=== PATIENT | male | born 1955 | race Caucasian/White ===

== ENCOUNTER 2018-10-08 09:50 | Outpatient (CLI) | payer MEDICAID, SELFPAY ==
--- NOTE | 2018-10-08 09:45 | DI.RAD_ITS ---
SYMPTOMS/DIAGNOSIS: PAIN BILATERAL LEFT SHOULDER: The bony structures are normally mineralized. 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 RIGHT SHOULDER: The bony structures are normally mineralized. As visualized the joint spaces are intact. There is no soft tissue abnormality.
== END 2018-10-08 10:10 ==
PROVIDERS: PCP Nurse Practitioner; Visit Provider Orthopaedic Surgery
DX: M25.511 Pain in right shoulder (principal); M25.512 Pain in left shoulder; M75.82 Other shoulder lesions, left shoulder
CPT/HCPCS: 73030

== ENCOUNTER 2018-11-04 05:57 | Emergency (ER) | payer MEDICAID, SELFPAY ==
[2018-11-04 05:59] VITALS: BP 166/94; PULSE 62; RESP 20; TEMP 36.6; O2SAT 100
--- NOTE | 2018-11-04 06:21 | W.ED.GENAD ---
Discharge Plan Disposition Patient Disposition: HOME Condition: Stable Discharge Details Chief Complaint: Nk/Back Pain Clinical Impression: Acute left-sided back pain with sciatica Primary Care Provider: Christiana Hernandez ED Provider: Mehran Whittington Home Meds and New Rx's Prescriptions: New tramadol 50 mg tablet 50 mg PO Q6H PRN (Reason: pain) Qty: 7 RF: 0 Continue diphenhydramine HCl [Benadryl] 25 mg capsule 50 mg PO HS PRN PRNRF: 0 atorvastatin [Lipitor] 40 mg tablet 40 mg PO DAILY Qty: 90 RF: 3 lisinopril 10 mg tablet 10 mg PO DAILY Qty: 90 RF: 3 ibuprofen 200 MG capsule 400 mg PO HS PRN RF: 0 aspirin 81 MG tablet,chewable 81 mg PO DAILY RF: 0 Discharge Instructions Instructions: Back Pain (ED) Additional Instructions: Please follow-up for physical therapy as prescribed. Please make an appointment follow-up in clinic for the end of the week Take the steroids as previously prescribed. Remove the lidocaine patch in 12 hours. May continue Tylenol. May use tramadol, as prescribed as needed for breakthrough pain. Return if you have worsening pain or any other acute concerns. Stand Alone Forms: Physical Therapy Referral, Work Release Medical Decision Making 62-year-old male abbie presents with exacerbation of known sciatica. He had been seen in clinic yesterday and prescribed steroids which she has not yet begun. He is slightly hypertensive at 166/94 otherwise unremarkable vital signs. Motor and sensory exam of the lower extremities intact. This is consistent with acute left-sided sciatica. I will have him fill the previously prescribed steroids, a lidocaine patch was placed in the emergency department, patient was given ketorolac IM as well as Toradol p.o. which I will also prescribed to him for pain as needed. Will refer the patient to physical therapy. He will follow-up in clinic for recheck. HPI General Date/Time Provider Initiated Documentation: 11/04/18 06:08. Limitations to Documentation: no limitations. Information obtained by: patient. History of Present Illness 62 year old M presents to the emergency department with the chief complaint of Left low back pain, radiates to leg, described as severe and similar to prior episodes, Quality is described as dull and constant, and is localized to the left and lower extremity. Patient extremity and distal. Patient started experiencing this day(s) and it has been constant. No relieving factors improve symptom(s), No exacerbating factors reported . HPI Narrative: 62-year-old male with history of degenerative disc disease and lumbar spinal stenosis who presents with complaint of days of severe left low back. It radiates to the buttock and leg. Was seen in clinic yesterday November 03 prescribed steroids and she has not yet picked up. He denies any inability to walk, no change to urination, no single traumatic injury. He states that he has otherwise recently been well. Related Data Home Medications Medication Instructions Recorded Confirmed aspirin 81 mg PO DAILY 02/03/13 11/04/18 ibuprofen 400 mg PO HS PRN 10/31/17 11/04/18 atorvastatin 40 mg tablet 40 mg PO DAILY #90 tab-cap 09/17/18 11/04/18 diphenhydramine 25 mg capsule 50 mg PO HS PRN PRN cap 09/17/18 11/04/18 lisinopril 10 mg tablet 10 mg PO DAILY #90 tab-cap 18 11/04/18 tramadol 50 mg PO Q6H PRN #7 tab 11/04/18 Previous Rx's Medication Instructions Recorded atorvastatin 40 mg tablet 40 mg PO DAILY #90 tab-cap 09/17/18 lisinopril 10 mg tablet 10 mg PO DAILY #90 tab-cap 09/17/18 tramadol 50 mg PO Q6H PRN #7 tab 11/04/18 Allergies Allergy/AdvReac Type Severity Reaction Status Date / Time oxycodone AdvReac Intermediate Agitation Verified 11/04/18 06:02 prednisone AdvReac Intermediate Agitation, Verified 11/04/18 06:02 depressed mood clams Allergy Severe gi Uncoded 11/04/18 06:02 General Stated Complaint: Nk/Back Pain NAVI: 3 Review of Systems Review of Systems 6 systems reviewed and otherwise negative [facility] Social History household members: spouse and children number of children: 5 current occupational status: employed 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 current occupational exposures/hazards: Yes frequency: 5-6 times per week Smoking/Tobacco Use Status: Former Tobacco Use alcohol intake: current alcohol intake frequency: holidays/special occasions only substance use type: does not use Surgical History RUPTURE EXTENSOR POLLICIS LONGUS TENDON (04/02/12) Tonsillectomy Trigger Finger release (02/04/13) Social History household members: spouse and children number of children: 5 current occupational status: employed 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 Pleasant, well groomed, interactive. HEAD: Normocephalic, atraumatic ENT: Mucous membranes moist, oropharynx unremarkable, External ear exam unremarkable EYES: PERRL, EOMI NECK: Full ROM, no TACHO, no menigismus CHEST/RESP: Nontender, clear to auscultation bilateral, no wheeze/rhonchi/rales CARDIOVASCULAR: RRR, no murmur, rub stefania. 2+ Rad pulse bilateral ABDOMEN: Soft, nontender, no mass. 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 No midline tenderness, step off or deformity. EXT: Full ROM, no edema, no rash. Motor 5 out of 5 bilaterally. Sensation intact including saddle distribution. Reflexes 1+ at the patella bilaterally Neuro: Grossly normal neurologic exam, conversant, interactive. Psych: Speech fluent, thoughts congruent, affect normal Course Vital Signs Temperature 36.6 C 11/04/18 05:59 Pulse 62 11/04/18 05:59 Respiratory Rate 20 11/04/18 05:59 Blood Pressure 166/94 H 11/04/18 05:59 Pulse Oximetry 100 11/04/18 05:59 Temperature 36.6 C 11/04/18 05:59 Temperature Source Skin 11/04/18 05:59 Pulse 62 11/04/18 05:59 Respiratory Rate 20 11/04/18 05:59 Blood Pressure 166/94 H 11/04/18 05:59 Pulse Oximetry 100 11/04/18 05:59 Oxygen Delivery Method Room Air 11/04/18 05:59 Oxygen Flow Rate 0 11/04/18 05:59 Pain Level 6 11/04/18 05:59
--- NOTE | 2018-11-04 06:25 | ED.GENADUL_ITS ---
Discharge Plan Disposition Patient Disposition: HOME Condition: Stable Discharge Details Chief Complaint: Nk/Back Pain Clinical Impression: Acute left-sided back pain with sciatica Primary Care Provider: Christiana Hernandez ED Provider: Mehran Whittington Home Meds and New Rx's Prescriptions: New tramadol 50 mg tablet 50 mg PO Q6H PRN (Reason: pain) Qty: 7 RF: 0 Continue diphenhydramine HCl [Benadryl] 25 mg capsule 50 mg PO HS PRN PRNRF: 0 atorvastatin [Lipitor] 40 mg tablet 40 mg PO DAILY Qty: 90 RF: 3 lisinopril 10 mg tablet 10 mg PO DAILY Qty: 90 RF: 3 ibuprofen 200 MG capsule 400 mg PO HS PRN RF: 0 aspirin 81 MG tablet,chewable 81 mg PO DAILY RF: 0 Discharge Instructions Instructions: Back Pain (ED) Additional Instructions: Please follow-up for physical therapy as prescribed. Please make an appointment follow-up in clinic for the end of the week Take the steroids as previously prescribed. Remove the lidocaine patch in 12 hours. May continue Tylenol. May use tramadol, as prescribed as needed for breakthrough pain. Return if you have worsening pain or any other acute concerns. Stand Alone Forms: Physical Therapy Referral, Work Release Medical Decision Making 62-year-old male abbie presents with exacerbation of known sciatica. He had been seen in clinic yesterday and prescribed steroids which she has not yet begun. He is slightly hypertensive at 166/94 otherwise unremarkable vital signs. Motor and sensory exam of the lower extremities intact. This is consistent with acute left-sided sciatica. I will have him fill the previously prescribed steroids, a lidocaine patch was placed in the emergency department, patient was given ketorolac IM as well as Toradol p.o. which I will also prescribed to him for pain as needed. Will refer the patient to physical therapy. He will follow-up in clinic for recheck. HPI General Date/Time Provider Initiated Documentation: 11/04/18 06:08 . Limitations to Documentation: no limitations . Information obtained by: patient . History of Present Illness 62 year old M presents to the emergency department with the chief complaint of Left low back pain, radiates to leg, described as severe and similar to prior episodes, Quality is described as dull and constant, and is localized to the left and lower extremity. Patient extremity and distal. Patient started experiencing this day(s) and it has been constant. No relieving factors improve symptom(s), No exacerbating factors reported . HPI Narrative: 62-year-old male with history of degenerative disc disease and lumbar spinal stenosis who presents with complaint of days of severe left low back. It radiates to the buttock and leg. Was seen in clinic yesterday November 03 prescribed steroids and she has not yet picked up. He denies any inability to walk, no change to urination, no single traumatic injury. He states that he has otherwise recently been well. Related Data Home Medications Medication Instructions Recorded Confirmed aspirin 81 mg PO DAILY 02/03/13 11/04/18 ibuprofen 400 mg PO HS PRN 10/31/17 11/04/18 atorvastatin 40 mg tablet 40 mg PO DAILY #90 tab-cap 09/17/18 11/04/18 diphenhydramine 25 mg capsule 50 mg PO HS PRN PRN cap 09/17/18 11/04/18 lisinopril 10 mg tablet 10 mg PO DAILY #90 tab-cap 18 11/04/18 tramadol 50 mg PO Q6H PRN #7 tab 11/04/18 Previous Rx's Medication Instructions Recorded atorvastatin 40 mg tablet 40 mg PO DAILY #90 tab-cap 09/17/18 lisinopril 10 mg tablet 10 mg PO DAILY #90 tab-cap 09/17/18 tramadol 50 mg PO Q6H PRN #7 tab 11/04/18 Allergies Allergy/AdvReac Type Severity Reaction Status Date / Time oxycodone AdvReac Intermediate Agitation Verified 11/04/18 06:02 prednisone AdvReac Intermediate Agitation, Verified 11/04/18 06:02 depressed mood clams Allergy Severe gi Uncoded 11/04/18 06:02 General Stated Complaint: Nk/Back Pain NAVI: 3 Review of Systems Review of Systems 6 systems reviewed and otherwise negative [facility] Social History household members: spouse and children number of children: 5 current occupational status: employed 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 current occupational exposures/hazards: Yes frequency: 5-6 times per week Smoking/Tobacco Use Status: Former Tobacco Use alcohol intake: current alcohol intake frequency: holidays/special occasions only substance use type: does not use Surgical History RUPTURE EXTENSOR POLLICIS LONGUS TENDON (04/02/12) Tonsillectomy Trigger Finger release (02/04/13) Social History household members: spouse and children number of children: 5 current occupational status: employed 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 Pleasant, well groomed, interactive. HEAD: Normocephalic, atraumatic ENT: Mucous membranes moist, oropharynx unremarkable, External ear exam unremarkable EYES: PERRL, EOMI NECK: Full ROM, no TACHO, no menigismus CHEST/RESP: Nontender, clear to auscultation bilateral, no wheeze/rhonchi/rales CARDIOVASCULAR: RRR, no murmur, rub stefania. 2+ Rad pulse bilateral ABDOMEN: Soft, nontender, no mass. 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 No midline tenderness, step off or deformity. EXT: Full ROM, no edema, no rash. Motor 5 out of 5 bilaterally. Sensation intact including saddle distribution. Reflexes 1+ at the patella bilaterally Neuro: Grossly normal neurologic exam, conversant, interactive. Psych: Speech fluent, thoughts congruent, affect normal Course Vital Signs Temperature 36.6 C 11/04/18 05:59 Pulse 62 11/04/18 05:59 Respiratory Rate 20 11/04/18 05:59 Blood Pressure 166/94 H 11/04/18 05:59 Pulse Oximetry 100 11/04/18 05:59 Temperature 36.6 C 11/04/18 05:59 Temperature Source Skin 11/04/18 05:59 Pulse 62 11/04/18 05:59 Respiratory Rate 20 11/04/18 05:59 Blood Pressure 166/94 H 11/04/18 05:59 Pulse Oximetry 100 11/04/18 05:59 Oxygen Delivery Method Room Air 11/04/18 05:59 Oxygen Flow Rate 0 11/04/18 05:59 Pain Level 6 11/04/18 05:59
[2018-11-04] MEDS: Ketorolac 60 MG/2 ML VIAL IM (06:26)
[2018-11-04] MEDS: traMADol 50 MG TAB 100 MG PO (06:26)
[2018-11-04] MEDS: Lidocaine 5% Patch 1 PATCH TP (06:26)
== END 2018-11-04 07:10 | disposition home or self-care (01) ==
LOC: ER 07:22
PROVIDERS: Emergency Provider Emergency Medicine; PCP Nurse Practitioner
DX: M54.42 Lumbago with sciatica, left side (principal); I10 Essential (primary) hypertension
CPT/HCPCS: 96372; 99284; 99283; J1885

== ENCOUNTER 2018-11-08 21:32 | Emergency (ER) | payer MEDICAID, SELFPAY ==
[2018-11-08 21:36] VITALS: BP 157/99; PULSE 65; RESP 22; TEMP 36.8; O2SAT 98
--- NOTE | 2018-11-08 22:18 | ED.GENADUL_ITS ---
Discharge Plan Disposition Patient Disposition: HOME Condition: Stable Discharge Details Chief Complaint: Nk/Back Pain Clinical Impression: Acute exacerbation of chronic low back pain, Sciatica Primary Care Provider: Christiana Hernandez ED Provider: Emilia Mendoza Home Meds and New Rx's Prescriptions: New diazepam [Valium] 5 mg tablet 5 mg PO TID PRN (Reason: muscle spasm) Qty: 10 RF: 0 No Action diphenhydramine HCl [Benadryl] 25 mg capsule 50 mg PO HS PRN PRNRF: 0 atorvastatin [Lipitor] 40 mg tablet 40 mg PO DAILY Qty: 90 RF: 3 lisinopril 10 mg tablet 10 mg PO DAILY Qty: 90 RF: 3 methylprednisolone [Medrol (Norberto)] 4 mg tablets,dose pack See Label Instructions PO DIRECTED Qty: 21 RF: 0 ibuprofen 200 MG capsule 400 mg PO HS PRN RF: 0 aspirin 81 MG tablet,chewable 81 mg PO DAILY RF: 0 Discharge Instructions Instructions: Sciatica (ED) Additional Instructions: Alternate tylenol and motrin as needed and directed for pain. Finish your steroids. Take the valium or tramadol as needed and directed for pain not relieved with tylenol or motrin. Follow up with your primary care doctor in 1 week for re-evaluation. Return immediately to the emergency department with any worsening or new concerning symptoms. Discharge Data Discharge Physician: Emilia Mendoza Medical Decision Making 62yo M w/ a h/o chronic back pain and sciatica with lumbar disc herniation with radiculopathy who presents for acute on chronic left-sided lower back pain with radiation to left thigh with left-sided tingling for the past week. Patient was seen here 4 days ago for the same complaint and sent home with tramadol. He was also given a Medrol Dosepak by his PCP this week. No other cauda equina symptoms. Took Motrin at 5 PM and Tylenol at 8 PM tonight. Vitals within normal limits. Patient appears nontoxic. Muscle strength 5/5 bilateral lower extremities. Bilateral deep tendon reflexes intact and 1+ except for right patellar reflex which patient states is chronic due to his lumbar disc herniation. Neurovascularly intact. Normal exam. Patient has no tenderness to palpation or infection his back. Patient able to ambulate short distance due to pain. Will give a dose of Toradol IM and Valium p.o. and reassess and attempt to ambulate. 2229 -- pt still with pain, will give a dose of tramadol and reassess. 2304 --patient able to ambulate, bend over and put on his shoes and feels good to go home. We will send home with a prescription for valium and 2 tabs of tramadol. Patient is instructed to call his primary care doctor to arrange for a follow-up appointment for reevaluation and referral to the pain clinic if pain persists. Pt instructed to return here immediately with any worsening symptoms. HPI General Mode of arrival: ambulatory . Date/Time Provider Initiated Documentation: 11/08/18 21:34 . Limitations to Documentation: no limitations . Information obtained by: patient . HPI Narrative: Patient is a 62-year-old male with a history of chronic back pain and sciatica who presents for L sided lower back pain with radiation to L thigh with L thigh tingling for the past week. Patient has a history of lumbar disc herniation and states he occasionally has flareups of his back pain. Patient states the last time he had pain before this episode was 1 week ago. Patient was seen here 4 days ago for the same complaint and was given tramadol. Patient was seen by his PCP and was given a Medrol Dosepak. Patient states the tramadol was helping his pain but he ran out. Patient took Motrin and Tylenol tonight without relief. He denies any urinary or fecal incontinence, abdominal pain, saddle anesthesia or leg weakness. Related Data Home Medications Medication Instructions Recorded Confirmed aspirin 81 mg PO DAILY 02/03/13 11/08/18 ibuprofen 400 mg PO HS PRN 10/31/17 11/08/18 atorvastatin 40 mg tablet 40 mg PO DAILY #90 tab-cap 09/17/18 11/08/18 diphenhydramine 25 mg capsule 50 mg PO HS PRN PRN cap 09/17/18 11/08/18 lisinopril 10 mg tablet 10 mg PO DAILY #90 tab-cap 18 11/08/18 methylprednisolone 4 mg tablets in See Label Instructions PO 11/05/18 a dose pack DIRECTED #21 dose pk diazepam [Valium] 5 mg PO TID PRN #10 tab 11/08/18 Previous Rx's Medication Instructions Recorded atorvastatin 40 mg tablet 40 mg PO DAILY #90 tab-cap 09/17/18 lisinopril 10 mg tablet 10 mg PO DAILY #90 tab-cap 09/17/18 methylprednisolone 4 mg tablets in See Label Instructions PO 11/05/18 a dose pack DIRECTED #21 dose pk diazepam [Valium] 5 mg PO TID PRN #10 tab 11/08/18 Allergies Allergy/AdvReac Type Severity Reaction Status Date / Time oxycodone AdvReac Intermediate Agitation Verified 11/08/18 21:41 prednisone AdvReac Intermediate Agitation, Verified 11/08/18 21:41 depressed mood clams Allergy Severe gi Uncoded 11/08/18 21:41 General Stated Complaint: Nk/Back Pain NAVI: 4 Review of Systems Review of Systems All systems reviewed & are unremarkable except as noted in HPI and below Constitutional Reports as per HPI, Denies chills and Denies fever(s) Eyes Denies blurry vision ENT Denies dizziness, Denies sore throat and Denies throat swelling Cardiovascular Denies chest pain and Denies dyspnea Respiratory Denies dyspnea Gastrointestinal Denies abdominal pain, Denies diarrhea and Denies vomiting Genitourinary Denies hematuria and Denies dysuria Musculoskeletal Reports back pain and Denies numbness Integumentary/Breasts Denies lesions and Denies rash Neurologic Denies dizziness and Denies numbness Allergic/Immunologic Denies throat swelling PFSH Hyperlipemia (Acute) Anxiety (Chronic) Depression (Chronic) GERD (gastroesophageal reflux disease) (Chronic) HTN (hypertension) (Chronic) Osteoarthritis (Chronic) RUPTURE EXTENSOR POLLICIS LONGUS TENDON (04/02/12) Tonsillectomy Trigger Finger release (02/04/13) Medical History Hyperlipemia (Acute) Anxiety (Chronic) Depression (Chronic) GERD (gastroesophageal reflux disease) (Chronic) HTN (hypertension) (Chronic) Osteoarthritis (Chronic) Social History household members: spouse and children number of children: 5 current occupational status: employed 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 current occupational exposures/hazards: Yes frequency: 5-6 times per week Smoking/Tobacco Use Status: Former Tobacco Use alcohol intake: current alcohol intake frequency: holidays/special occasions only substance use type: does not use Surgical History RUPTURE EXTENSOR POLLICIS LONGUS TENDON (04/02/12) Tonsillectomy Trigger Finger release (02/04/13) Social History household members: spouse and children number of children: 5 current occupational status: employed 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 current occupational exposures/hazards: Yes frequency: 5-6 times per week Smoking/Tobacco Use Status: Former Tobacco Use alcohol intake: current alcohol intake frequency: holidays/special occasions only substance use type: does not use Exam Const General: cooperative, healthy appearing and no acute distress HENMT Head: normal to inspection Mouth: oral mucosae normal Eyes General: appearance normal, both eyes and all related structures Neck Neck: normal visual inspection Resp Effort & Inspection: normal respiratory effort and able to speak in complete sentences Auscultation: clear to auscultation bilaterally Cardio Rate: regular rate Rhythm: regular rhythm GI Inspection: normal to inspection Palpation: soft and nontender Auscultation: normal bowel sounds Penis: normal penis Scrotum: scrotum normal Testes: normal, no testicular swelling and no testicular tenderness Skin General skin exam: no rashes or lesions noted Neuro General: alert, awake and oriented x3 Motor: muscle tone normal throughout Extrem General: normal to inspection and full ROM Psych Appearance: grossly normal Affect: normal affect Course Vital Signs Temperature 98.2 F 11/08/18 21:36 Pulse 65 11/08/18 21:36 Respiratory Rate 22 11/08/18 21:36 Blood Pressure 157/99 H 11/08/18 21:36 Pulse Oximetry 98 11/08/18 21:36 Temperature 98.2 F 11/08/18 21:36 Temperature Source Temporal Artery Scan 11/08/18 21:36 Pulse 65 11/08/18 21:36 Respiratory Rate 22 11/08/18 21:36 Respiratory Effort Non-Labored 11/08/18 21:39 Blood Pressure 157/99 H 11/08/18 21:36 Blood Pressure Position Sitting 11/08/18 21:36 Pulse Oximetry 98 11/08/18 21:36 Oxygen Delivery Method Room Air 11/08/18 21:36 Oxygen Flow Rate 0 11/08/18 21:36 Pain Level 8 11/08/18 21:40
[2018-11-08] MEDS: Diazepam 5 MG TAB PO (22:20)
[2018-11-08] MEDS: Ketorolac 60 MG/2 ML VIAL IM (22:20)
[2018-11-08] MEDS: traMADol 50 MG TAB 100 MG PO (22:44)
[2018-11-08] MEDS: traMADol 50 MG TAB PO (22:47)
[2018-11-08 23:12] VITALS: BP 132/68; PULSE 61; RESP 18; TEMP 36.8; O2SAT 98
== END 2018-11-08 23:12 | disposition home or self-care (01) ==
LOC: ER 22:41
PROVIDERS: Emergency Provider Physician Assistant; PCP Nurse Practitioner
DX: M54.5 Low back pain (principal); G89.29 Other chronic pain; M54.32 Sciatica, left side; R20.2 Paresthesia of skin; I10 Essential (primary) hypertension
CPT/HCPCS: 96372; 99284; J1885

== ENCOUNTER 2018-11-19 00:45 | Outpatient (CLI) | payer MEDICAID, SELFPAY ==
--- NOTE | 2018-11-19 14:38 | DI.MRI_ITS ---
SYMPTOM/DIAGNOSIS: WORSENING LBP, SCIATICA, LLE NUMBNESS, LOW BACK PAIN, LT LEG NUMBNESS M54.2, R20.0 LUMBAR MRI: The study was conducted according to the usual protocol. The vertebra are intact and no significant bony signal abnormality is seen. There is no demonstrated abnormality involving the lower dorsal cord, conus or phylum terminale as visualized. There is less than 1 mm disc bulge with disc desiccation at all lumbar disc levels. There is moderate posterior disc narrowing with a 4 mm left posterior paracentral disc protrusion and prominent annular tear at L2-3. This produces severe central spinal stenosis on the AP images with a 6-7 mm canal diameter. There is facet joint hypertrophy. There is moderate bilateral neural foraminal stenosis at this level. At L3-4 there is up to a 2 mm diffuse disc bulge with very mild bilateral neural foraminal stenosis. There is facet joint arthropathy at this level. There is minimal canal stenosis with a 10 mm AP canal diameter. At L4-5 there is fairly severe disc narrowing with extensive Modic degenerative signal on the adjacent end plates. There is a 3 mm diffuse disc bulge/protrusion and osteophyte formation with severe lateral recess stenosis and severe left as well as moderate to severe right neural foraminal stenosis. There is moderate facet joint hypertrophy at this level. At L5-S1 there is a slightly over 3 mm broad-based central disc bulge/protrusion with severe proximal right and severe left neuroforaminal stenosis. There is no central spinal stenosis. There is mild facet joint arthropathy and tropism. The soft tissues are unremarkable. SUMMARY: At L2-3 there is moderate posterior disc narrowing with a 4 mm left posterior paracentral disc protrusion and prominent annular tear. This produces severe central spinal stenosis in the AP dimension with a 6-7 mm AP canal diameter. There is facet joint arthropathy. There is moderate bilateral neural foraminal stenosis at this level. At L4-5 there is a fairly severe disc narrowing with extensive Modic type II degenerative signal on the adjacent end plates. There is a 3 mm diffuse disc bulge/protrusion and osteophyte formation with severe lateral recess stenosis and severe left as well as moderate right to severe neuroforaminal stenosis. There is moderate facet joint hypertrophy. At L5-S1 there is a slightly (over 3 mm ) broad based central disc bulge/protrusion with severe prominent right and severe left neuroforaminal stenosis. There is no central spinal stenosis. There is mild facet arthropathy and tropism. Note is also made of mild disc abnormalities at L1-2 and L3-4 as described above.
--- NOTE | 2018-11-19 16:59 | DI.VRAD_ITS ---
EXAM: MR Lumbar Spine Without and With Contrast. EXAM DATE/TIME: 11/19/2018 3:26 PM CLINICAL HISTORY: 63 years old, male; Pain; Low back pain; Patient HX: Chronic lbp, worsening ll symptoms, bilateral leg symptoms; Additional info: Recent lt leg symptoms TECHNIQUE: Multiplanar magnetic resonance images of the lumbar spine without and with intravenous contrast. COMPARISON: MRI - LUMBAR SPINE WO CONTRAST 11/19/2016 4:24 PM FINDINGS: Vertebrae: Unremarkable. Spinal cord: Normal signal. No cord compression. DISCS/SPINAL CANAL/NEURAL FORAMINA: L1-L2: There is a less than 1 mm disc bulge with disc desiccation at all lumbar disc levels. L2-L3: There is moderate posterior disc narrowing with a 4 mm left posterior paracentral disc protrusion and prominent annular tear. This produces severe central stenosis in the AP dimension, with a 6-7 mm AP canal diameter. There is facet arthropathy. There is moderate bilateral neuroforaminal stenosis. L3-L4: There is an up to 2 mm diffuse disc bulge with very mild bilateral neuroforaminal stenosis. There is facet arthropathy. There is minimal central stenosis with a 10 mm AP canal diameter. L4-L5: There is fairly severe disc narrowing with extensive Modic type II degenerative signal on the adjacent endplates. There is a 3 mm diffuse disc bulge/protrusion and osteophyte with severe lateral recess stenosis and severe left as well as moderate to severe right neuroforaminal stenosis. There is moderate facet hypertrophy. L5-S1: There is a slightly over 3 mm broad-based central disc bulge/protrusion with severe proximal right and severe left neuroforaminal stenosis. No central stenosis. There is mild facet arthropathy and tropism. Soft tissues: Unremarkable. IMPRESSION: 1. L2-3: There is moderate posterior disc narrowing with a 4 mm left posterior paracentral disc protrusion and prominent annular tear. This produces severe central stenosis in the AP dimension, with a 6-7 mm AP canal diameter. There is facet arthropathy. There is moderate bilateral neuroforaminal stenosis. 2. L4-5: There is fairly severe disc narrowing with extensive Modic type II degenerative signal on the adjacent endplates. There is a 3 mm diffuse disc bulge/protrusion and osteophyte with severe lateral recess stenosis and severe left as well as moderate to severe right neuroforaminal stenosis. There is moderate facet hypertrophy. 3. L5-S1: There is a slightly over 3 mm broad-based central disc bulge/protrusion with severe proximal right and severe left neuroforaminal stenosis. No central stenosis. There is mild facet arthropathy and tropism. More mild disc abnormalities at L1-2 and L3-4 as detailed above. Dictated and Authenticated by: North Leyva MD. Ordering:DAVID Patel MD
== END 2018-11-19 01:05 ==
PROVIDERS: PCP Nurse Practitioner; Visit Provider Nurse Practitioner Family
DX: M54.42 Lumbago with sciatica, left side (principal); M51.26 Other intervertebral disc displacement, lumbar region; M48.07 Spinal stenosis, lumbosacral region; R20.0 Anesthesia of skin
CPT/HCPCS: 72148

== ENCOUNTER 2019-03-02 07:31 | Outpatient (CLI) | payer MEDICAID, SELFPAY ==
[2019-03-02 07:47] LABS: HCT 42.1 % (40.0-50.0); HGB 14.5 g/dL (13.5-17.5); Mean Corp. HGB Concentration 34.4 g/dL (32.0-36.0); Mean Corpuscular Hemoglobin 31.4 pg (27.0-33.0); Mean Corpuscular Volume 91.1 fL (80-95); Mean Platelet Volume 9.4 fL (8.0-11.0); Platelet Count 288 x1000/uL (130-400); RBC 4.62 m/cumm (4.50-6.00); RBC Distribution Width 12.1 % (11.8-14.1); White Blood Cell Count 7.71 k/cumm (4.4-10.8)
[2019-03-02 09:18] LABS: ALT 37 U/L (12-78); AST 16 U/L (15-37); Albumin 3.6 g/dL (3.4-5.0); Alkaline Phosphatase 63 U/L (46-116); Anion Gap 9.2 mmol/L (3-11); BUN 13 mg/dL (7-18); Bilirubin, Total 0.3 mg/dL (0.2-1.0); CO2 28.8 mmol/L (21.0-32.0); CREATININE 0.84 mg/dL (0.70-1.30); Calcium 8.8 mg/dL (8.5-10.1); Chloride 103 mmol/L (98-107); Cholesterol 149 mg/dL (50-200); Glucose 98 mg/dL (70-100); HDL Cholesterol 41 mg/dL (40-60); LDL CHOLESTEROL 84 mg/dL (<100); Potassium 4.4 mmol/L (3.5-5.1); Sodium 141 mmol/L (136-145); Total Protein 7.3 g/dL (6.4-8.2); Triglyceride 101 mg/dL (30-150)
== END 2019-03-02 07:51 ==
PROVIDERS: PCP Nurse Practitioner; Visit Provider Nurse Practitioner Family
DX: E78.5 Hyperlipidemia, unspecified (principal); I10 Essential (primary) hypertension
CPT/HCPCS: 36415; 80053; 80061; 83721; 85027

== ENCOUNTER 2019-04-24 08:45 | Outpatient (CLI) | payer MEDICAID, SELFPAY ==
[2019-04-27 11:47] LABS: Varicella IgG Antibody Positive
== END 2019-04-24 09:05 ==
PROVIDERS: PCP Nurse Practitioner; Visit Provider Nurse Practitioner
DX: Z01.84 Encounter for antibody response examination (principal)
CPT/HCPCS: 36415; 86787

== ENCOUNTER 2019-05-14 12:27 | Outpatient (CLI) | payer MEDICAID, SELFPAY ==
[2019-05-14 13:09] LABS: HCT 40.7 % (40.0-50.0); Mean Corp. HGB Concentration 34.4 g/dL (32.0-36.0); Mean Corpuscular Hemoglobin 31.3 pg (27.0-33.0); Mean Corpuscular Volume 90.8 fL (80-95); Mean Platelet Volume 9.6 fL (8.0-11.0); Platelet Count 309 x1000/uL (130-400); RBC 4.48 m/cumm (4.50-6.00); RBC Distribution Width 12.1 % (11.8-14.1); White Blood Cell Count 8.59 k/cumm (4.4-10.8)
[2019-05-14 16:12] LABS: ESR 8 MM/HR (1-20)
[2019-05-15 12:12] LABS: Lyme Ab w Rflx to Lyme Confirm Negative
[2019-05-15 21:49] LABS: Anaplasma phagocytophilum Negative (Negative); B. miyamotoi PCR Negative (Negative); Babesia divergens/MO-1 Negative (Negative); Babesia duncani Negative (Negative); Babesia microti Negative (Negative); Ehrlichia chaffeensis Negative (Negative); Ehrlichia ewingii/canis Negative (Negative); Ehrlichia muris eauclairensis Negative (Negative)
== END 2019-05-14 12:47 ==
PROVIDERS: PCP Nurse Practitioner; Visit Provider Nurse Practitioner
DX: R53.83 Other fatigue; W57.XXXA Bitten or stung by nonvenomous insect and other nonvenomous arthropods, initial encounter; T14.8XXA Other injury of unspecified body region, initial encounter
CPT/HCPCS: 36415; 85027; 85652; 86618; 87798

== ENCOUNTER 2019-10-09 09:59 | Outpatient (CLI) | payer MEDICAID, SELFPAY ==
[2019-10-09 11:09] LABS: ESR 11 mm/hr (1-20)
[2019-10-09 12:08] LABS: TSH (W/Ref FT4) 2.47 uIU/mL (0.36-3.74)
[2019-10-09 12:32] LABS: C-Reactive Protein < 0.05 mg/dL (0.0-0.3)
[2019-10-13 08:20] LABS: ANA Interpretation Negative (Negative)
[2019-10-13 11:52] LABS: Rheumatoid Factor <7.5 IU/mL
== END 2019-10-09 10:19 ==
PROVIDERS: PCP Nurse Practitioner; Visit Provider Nurse Practitioner
DX: I10 Essential (primary) hypertension (principal); M54.5 Low back pain; R29.898 Other symptoms and signs involving the musculoskeletal system
CPT/HCPCS: 36415; 85652; 84443; 86038; 86140; 86431

== ENCOUNTER 2019-10-27 00:36 | Outpatient (CLI) | payer MEDICAID, SELFPAY ==
--- NOTE | 2019-10-27 15:15 | DI.MRI_ITS ---
EXAM: MR LUMBAR SPINE WO CLINICAL HISTORY: LE WEAKNESS, SPINAL STENOSIS, LOW BACK PAIN, R29.898, M54.5, M51.16, M48.00. TECHNIQUE: Multiplanar multisequence MRI was performed. COMPARISON: MR lumbar spine wo from 11/19/2018 FINDINGS: T11-12 through L1-2 discs show mild bulging. At L2-3, there is mild loss of disc height and broad-based prominent disc bulging. There are mild fa cet degenerative changes, which combine with the disc bulging to produce mild central canal stenosis. There has been some interval improvement in the appearance when compared with the previous exam. T here is a moderate degree of central canal stenosis, mainly in the AP dimension. There is mild bilat eral neural foraminal narrowing. At L3-4, there are mild broad-based disc osteophytes and facet degenerative changes combining to prod uce mild central canal stenosis. There is mild right neural foraminal narrowing. At L4-5, there is marked loss of disc height, degenerative signal changes in the endplates and broad- based disc osteophytes. There are facet degenerative changes. There is no significant central canal stenosis. There is severe left neural foraminal narrowing and moderate right neural foraminal narrow ing. At L5-S1, there is a focal left-sided paracentral disc protrusion which impinges on the left anterior aspect of the thecal sac and impinges on nerve roots. The aorta is normal in diameter. The conus medullaris appears intact. IMPRESSION: Left paracentral disc protrusion with impingement on the anterior thecal sac and nerve roots, new sin ce the previous exam. Improvement in previous previously noted left paracentral disc herniation at L2-3.
== END 2019-10-27 00:56 ==
PROVIDERS: PCP Nurse Practitioner; Visit Provider Nurse Practitioner
DX: M54.5 Low back pain (principal); M51.17 Intervertebral disc disorders with radiculopathy, lumbosacral region; M48.07 Spinal stenosis, lumbosacral region; R29.898 Other symptoms and signs involving the musculoskeletal system
CPT/HCPCS: 72148

== ENCOUNTER 2019-12-21 07:16 | Day surgery (SDC) | payer MEDICAID, SELFPAY ==
[2019-12-21 07:25] VITALS: BP 123/73; PULSE 63; RESP 16; TEMP 36.5; O2SAT 99
[2019-12-21] MEDS: Lactated Ringers 1,000 ML 80 ML IV (07:50)
--- NOTE | 2019-12-21 08:04 | W.COLOREPORT ---
Date of service: 12/21/19 Time of Service: 08:25 Colonoscopy Report Date of procedure: 12/21/19 Pre-op diagnosis general: Colon Cancer Screening Post-op diagnosis procedure note: other (polyps and mild diverticulosis) Procedure: Colonoscopy Surgeon: Elena Myrick Anesthesia proc note operative: other (General/ ASA2 /Jhonny Yap CRNA) Estimated blood loss (mL): 3 Pathology: other (Cecal polyps and rectal polyp) Complications: None Disposition: same day Indications: 64 y/o male with history of HTN presents for colonoscopy screening pre-op. His last screening was in 2008, which was unremarkable. He denies a family history of colon cancer. He denies any changes in bowel habits including bloody or black tarry stools, abdominal pain, diarrhea or constipation. Prep: Miralax/Dulcolax Procedure Start Time: :25 Procedure End Time: :52 Retraction Time: 18 minutes Findings: Mild diverticulosis 2 small polyps Procedure Description: After informed consent was obtained the patient was taken to the procedure room and placed in a left decubitous position. Monitors were applied and a time out was done. The patients name, date of , procedure, allergies to medications and metal in their body was reviewed. The patient was then sedated. Once sedated and comfortable a rectal exam was done. External exam was normal. Internal exam revealed a normal sphincter tone and no palpable masses. The prostate felt smooth. The scope was then introduced and retro-flexed. No internal hemorrhoids, masses or polyps on retro-flexion were identified. The scope was then advanced to the cecum without difficulty. The TI and appendiceal orifice were identified. The prep was adequate. The scope was then slowly retracted over 18 minutes back into the rectum. Polyps were removed with cold forceps in the cecum and rectum. There was mild diverticulosis noted in the descending and sigmoid colon. The scope was removed and the patient was woken up and taken back to Same day surgery in stable condition. The patient tolerated the procedure well and there were no immediate complications. Follow up: The patient should follow up in 3-5 years unless they develop changes in bowel habits or other new gastrointestinal complaints.
--- NOTE | 2019-12-21 08:05 | W.PM.DSUDISC ---
Discharge Plan Disposition Patient Disposition: HOME Condition: Good Discharge Details Reason For Visit: Colon Cancer Screening Attending Provider: Elena Myrick Primary Care Provider: Christiana Hernandez Home Meds and New Rx's Prescriptions: Continued lisinopril 10 mg tablet 10 mg PO DAILY Qty: 90 RF: 3 atorvastatin [Lipitor] 40 mg tablet 40 mg PO DAILY Qty: 90 RF: 3 ibuprofen 200 MG capsule 400 mg PO HS PRN RF: 0 aspirin 81 MG tablet,chewable 81 mg PO DAILY RF: 0 Discharge Instructions Instructions: Diverticulosis (DC), Colorectal Polyps (DC) Additional Instructions: Findings: 2 small polyps mild diverticulosis Follow up: 3-5 years Please call if you develop: fevers >101.5 Nausea or Vomiting Abdominal pain that is not transient DAY SURGERY UNIT POST ENDOSCOPY INSTRUCTIONS 1. Because there will be medication in your system for the next 24 hours, you may feel a little sleepy. Your coordination will be affected. Therefore: a. Do not drive or operate dangerous equipment for 24 hours. b. Do not drink alcohol beverages for 24 hours (not even beer). c. Plan to go home and rest for the day. 2. Generally there are no restrictions on your activity after a day or so has gone by, but you may feel a bit fatigued for a few days. 3 After you arrive home you may have a light meal and return to a normal diet as you can tolerate it without feeling sick to your stomach. 4. After surgery, you may feel pain or discomfort. This should be only transient, but if it persists please contact your doctor. 5. If there are any questions regarding the findings of your procedure, please feel free to contact your doctor. 6. If you are unable to contact your doctor with a problem, contact the hospital at [phone]. 7. Continue all your regular medications unless directed otherwise. I understand the above instructions and have no questions. Signature of Patient or Responsible Adult Escort Date/Time Name of Responsible Adult Escort Signature of Nurse Date/Time Activity:: Activity as Tolerated Diet:: High Fiber Diet Discharge Orders Discharge Orders: Discharge Order (Routine); Ordered 12/21/19 Ordered By: Elena Myrick
--- NOTE | 2019-12-21 08:38 | BOWEL_PTH ---
PATIENT: Marcell Tom LOC: [facility] U#:[id number] AGE/SX: 64/M ROOM: RE12/21/[address]: Elena Myrick MD : [id number] BED: DIS: 12/21/2019 SPEC #: [id number] RECD: 12/21/19 12:25 STATUS: DREA REQ #: [id number] ENEDINA: 12/21/19 08:[address]: Elena Myrick DEPT: Surgical Specimen RECD BY: Hayde Aguirre ENTERED: 12/21/19 12:25 SP TYPE: Bowel OTHR DR: Christiana Hernandez APRN Tissues: 1 - BIOPSY BOWEL 2 - BIOPSY BOWEL Procedures: GROSS AND MICRO LEVEL 4 Comments: [id number]
[2019-12-21 09:32] VITALS: BP 111/58; PULSE 60; RESP 18; TEMP 36; O2SAT 98
== END 2019-12-21 09:45 | disposition home or self-care (01) ==
PROVIDERS: PCP Nurse Practitioner; Visit Provider Surgery
PROC: 0DJD8ZZ Inspection of Lower Intestinal Tract, Via Natural or Artificial Opening Endoscopic (ICD-10-PCS; CPT 45378; principal; 2019-12-21 08:30)
DX: Z12.11 Encounter for screening for malignant neoplasm of colon (principal); K57.90 Diverticulosis of intestine, part unspecified, without perforation or abscess without bleeding; K21.9 Gastro-esophageal reflux disease without esophagitis; D12.0 Benign neoplasm of cecum; K62.1 Rectal polyp
CPT/HCPCS: 45378; 88305; J2704

== ENCOUNTER 2020-10-20 04:42 | Outpatient (CLI) | payer MEDICAID, SELFPAY ==
[2020-10-20 10:20] LABS: ALT 29 U/L (16-63); AST 16 U/L (15-37); Albumin 3.9 g/dL (3.4-5.0); Alkaline Phosphatase 59 U/L (46-116); Anion Gap 9.2 mmol/L (3-11); BUN 14 mg/dL (7-18); Bilirubin, Total 0.6 mg/dL (0.2-1.0); CO2 28.8 mmol/L (21.0-32.0); CREATININE 0.82 mg/dL (0.70-1.30); Calcium 8.8 mg/dL (8.5-10.1); Calculated LDL 85 mg/dL (<100); Chloride 103 mmol/L (98-107); Cholesterol 142 mg/dL (<200); Glucose 87 mg/dL (74-106); HDL Cholesterol 41 mg/dL (40-60); Potassium 4.4 mmol/L (3.5-5.1); Sodium 141 mmol/L (136-145); Total Protein 7.5 g/dL (6.4-8.2); Triglyceride 82 mg/dL (<150)
== END 2020-10-20 05:02 ==
PROVIDERS: PCP Nurse Practitioner; Visit Provider Nurse Practitioner
DX: E78.5 Hyperlipidemia, unspecified (principal); I10 Essential (primary) hypertension
CPT/HCPCS: 36415; 80053; 80061

== ENCOUNTER 2020-12-06 02:54 | Outpatient (CLI) | payer MEDICAID, SELFPAY ==
[2020-12-07 19:28] LABS: COVID-19 RT-PCR UVMMC Result Negative (Negative)
== END 2020-12-06 03:14 ==
PROVIDERS: PCP Nurse Practitioner; Visit Provider Nurse Practitioner
DX: R10.9 Unspecified abdominal pain (principal); M79.10 Myalgia, unspecified site; R68.83 Chills (without fever)
CPT/HCPCS: U0003

== ENCOUNTER 2021-02-23 00:57 | Outpatient (CLI) | payer MEDICAID, SELFPAY ==
--- NOTE | 2021-02-23 06:45 | DI.NM_ITS ---
APPROVED REPORT Exam: Exercise Treadmill Patient Location: Out-Patient Room/Bed: Stress Nurse: Bee Merlos RN Ordering Provider:DESHAUN DORADO, Contact Number: [phone] BMI: 29.69 Baseline Rhythm: Sinus Rhythm Comment: PAC Indications: dyspnea on exertion Medical History Medical History: Anxiety, depression, hyperlipidemia, hypertension, gerd, osteoarthritis Cardiac Medications: lisinopril, atorvastatin, aspirin Allergies: oxycodone, prednisone, clams Cardiac Risk Factors: hyperlipidemia, hypertension, smoker (former), family hx Previous Cardiac Procedures: None Pretest Chest Pain Characteristics: None Exercise History: Sedentary Physical Disabilities: None Lung Sounds: Clear to auscultation Heart Sounds: Regular Stress Test Details Test: Exercise stress testing was performed using a Jose protocol. Nuclear Acquisition: Rest Tc-99m/Stress Tc-99m 1 day Rest Isotope: Tc-99m Sestamibi. Dose: 12.2 Date: 02/23/2021 Injection Time: 0915 Stress Isotope: Tc-99m Sestamibi. Dose: 37.5 Date: 02/23/2021 Injection Time: 1130 HR Resting HR Supine: 65 bpm Max Heart Rate (APMHR): 157 bpm Resting HR Standin bpm Target HR (85% APMHR): 133 bpm Max HR Achieved: 148 bpm % of APMHR: 94 Recovery HR: 83 bpm HR response to stress: Normal HR response to stress BP Resting BP Supine: 130/78 mmHg Resting BP Standin/74 mmHg Max BP: 188/86 mmHg Recovery BP: 138/80 mmHg BP response to stress: Normal blood pressure response to stress. ECG Resting ECG: Sinus Rhythm Ectopy: PAC Stress ECG: Sinus Tachycardia ST Change: No significant ST segment changes noted Arrhythmia: Frequent PVCs, runs of bigeminy and trigeminy Recovery ECG: Sinus Rhythm Recovery ST Change: No significant ST segment changes noted Recovery Arrhythmia: Occasional PAC, PVC Clinical Reason for Termination: Fatigue Stress Symptoms: General Fatigue Exercise duration: 9 min33 sec Highest Stage Reached: Stage 4: 4.2 mph at 16% grade. Exercise capacity: 10.47 METs Rate Pressure Product: [id number] Stress ECG Conclusion 1. The patient exercised for 9 minutes (10 METS). Exercise was stopped due to fatigue. 2. Patient no symptoms suggestive of ischemia. 3. Patient's blood pressure and heart rate augmented appropriately. 4. There is no evidence of ischemia on ECG portion of the exam. Stress Test Summary STAGE Time (mins) Speed (mph) Grade (%) HR BP SYMPTOMS METS Supine 65 130/78 Standing 69 124/74 1 3 1.7 10 102 152/80 4.6 2 6 2.5 12 114 156/80 7 3 9 3.4 14 138 182/86 10.2 1 min recovery 121 188/86 3 min recovery 87 178/80 6 min recovery 86 170/72 9 min recovery 83 138/80 MPI Conclusion The patient's ejection fraction was 47% with stress. There were no wall motion abnormalities. There was no evidence of ischemia on the imaging portion of the exam. This represents a normal SPECT stress test
== END 2021-02-23 01:17 ==
PROVIDERS: PCP Nurse Practitioner; Visit Provider Nurse Practitioner
DX: R06.00 Dyspnea, unspecified (principal); Z82.49 Family history of ischemic heart disease and other diseases of the circulatory system; E78.5 Hyperlipidemia, unspecified; I10 Essential (primary) hypertension; Z87.891 Personal history of nicotine dependence
CPT/HCPCS: 78452; 93017

== ENCOUNTER 2021-09-27 04:34 | Outpatient (CLI) | payer MEDICAID, SELFPAY ==
[2021-09-27 08:52] LABS: ALT 35 U/L (16-63); AST 14 U/L (15-37); Albumin 3.7 g/dL (3.4-5.0); Alkaline Phosphatase 70 U/L (46-116); Anion Gap 8.5 mmol/L (3-11); BUN 15 mg/dL (7-18); Bilirubin, Total 0.4 mg/dL (0.2-1.0); CO2 28.5 mmol/L (21.0-32.0); CREATININE 0.9 mg/dL (0.70-1.30); Calcium 8.6 mg/dL (8.5-10.1); Calculated LDL 90 mg/dL (<100); Chloride 104 mmol/L (98-107); Cholesterol 145 mg/dL (<200); Glucose 100 mg/dL (74-106); HDL Cholesterol 42 mg/dL (40-60); Potassium 4.7 mmol/L (3.5-5.1); Sodium 141 mmol/L (136-145); Total Protein 7.6 g/dL (6.4-8.2); Triglyceride 69 mg/dL (<150)
[2021-09-28 10:42] LABS: Hepatitis C Ab w Rflx HCV PCR Negative (Negative)
[2021-09-28 11:01] LABS: HIV-1/2 Ag & Ab Screen Negative (Negative)
== END 2021-09-27 04:35 | disposition home or self-care (01) ==
LOC: LBO 04:34
PROVIDERS: PCP Nurse Practitioner; Visit Provider Nurse Practitioner
DX: E78.5 Hyperlipidemia, unspecified (principal); I10 Essential (primary) hypertension; Z11.4 Encounter for screening for human immunodeficiency virus [HIV]; Z11.59 Encounter for screening for other viral diseases
CPT/HCPCS: 36415; 80053; 80061; 86803; 87389

== ENCOUNTER 2021-11-02 11:47 | Outpatient (CLI) | payer MEDICAID, SELFPAY ==
--- NOTE | 2021-11-02 11:45 | DI.RAD_ITS ---
Exam(s) XR KNEE RT 3V AP,LAT,JODEI EXAM: XR KNEE RT 3V AP,LAT,JODIE CLINICAL HISTORY: right knee pain. TECHNIQUE: 2D digital imaging was performed. COMPARISON: No exams were available for comparison FINDINGS: There is no evidence of fracture although there does appear to be a joint effusion. On the weight-be aring view there is mild narrowing of the medial compartment without osteophytes. However, there lerner s appear to be a possible loose intra-articular body in the inner aspect of the medial compartment as seen on the frontal view. Lateral compartment appears unremarkable with respect to height and no os teophytes. There are moderate degenerative changes in the patellofemoral compartment. No osseous le sions. Bone density is normal. IMPRESSION: DATA REPOSITORY: RADIATION DOSE DELIVERED:
== END 2021-11-02 11:48 | disposition home or self-care (01) ==
LOC: DIORS 11:47
PROVIDERS: PCP Nurse Practitioner; Referring Provider Nurse Practitioner; Visit Provider Physician Assistant
DX: M25.561 Pain in right knee (principal); M25.461 Effusion, right knee
CPT/HCPCS: 73562

== ENCOUNTER 2021-11-10 00:26 | Outpatient (CLI) | payer MEDICAID, SELFPAY ==
--- NOTE | 2021-11-10 10:25 | DI.MRI_ITS ---
Exam(s) MR LOWER JOINT RT WO EXAM: MR LOWER JOINT RT WO CLINICAL HISTORY: RT KNEE PAIN, M25.561. TECHNIQUE: Multiplanar multisequence MRI was performed. COMPARISON: CR XR KNEE RT 3V AP,LAT,JODIE from 11/02/2021 CR XR KNEE RT 3V AP,LAT,JODIE from 11/02/2021 FINDINGS: The examination is limited due to patient motion artifact. BONES: There is no fracture or contusion pattern. JOINTS: There is thinning of the articular cartilage, subchondral edema and periarticular spurring in the medial patellofemoral joint. There is a small joint effusion. TENDONS: Extensor mechanism: Unremarkable. Medial retinaculum: Unremarkable. Lateral retinaculum: Unremarkable. Popliteus: Unremarkable. MUSCLES: Unremarkable. MENISCI: There is a tear of the body and posterior horn of the medial meniscus. The lateral meniscus is unremarkable. SOFT TISSUES: Unremarkable. LIGAMENTS: Anterior Cruciate: Unremarkable. Posterior Cruciate: Unremarkable. Medial Collateral:Unremarkable. Lateral Collateral: Unremarkable. OTHER: IMPRESSION: 1. Tear of the body and posterior horn of the medial meniscus. 2. No evidence of a ligament tear. 3. Degenerative changes of the patellofemoral joint. 4. Small joint effusion. DATA REPOSITORY:
== END 2021-11-10 00:46 ==
PROVIDERS: PCP Nurse Practitioner; Visit Provider Student in an Organized Health Care Education/Training Program
DX: M25.561 Pain in right knee (principal); M23.221 Derangement of posterior horn of medial meniscus due to old tear or injury, right knee; M22.2X1 Patellofemoral disorders, right knee; M25.461 Effusion, right knee
CPT/HCPCS: 73721

== ENCOUNTER 2022-01-29 02:15 | Outpatient (CLI) | payer MEDICAID, SELFPAY ==
[2022-01-29 10:40] LABS: Source Nasal/Nares
[2022-01-29 16:22] LABS: COVID-19 PCR Negative (Negative)
== END 2022-01-29 02:16 | disposition home or self-care (01) ==
LOC: LBO 02:15
PROVIDERS: PCP Nurse Practitioner; Visit Provider Student in an Organized Health Care Education/Training Program
DX: Z20.822 Contact with and (suspected) exposure to COVID-19 (principal); Z01.818 Encounter for other preprocedural examination
CPT/HCPCS: 87635

== ENCOUNTER 2022-01-31 10:23 | Day surgery (SDC) | payer MEDICAID, SELFPAY ==
[2022-01-31] VITALS (8 sets, daily range): BP systolic 104–124; BP diastolic 62–86; PULSE 51–64; RESP 10–21; TEMP 36.4–36.6; O2SAT 97–100; BMI 28.3
--- NOTE | 2022-01-31 07:47 | W.PM.DSUDISC ---
Discharge Plan Disposition Patient Disposition: HOME Condition: Stable Discharge Details Reason For Visit: Knee Arthroscopy Attending Provider: Rodrigo Beltran Primary Care Provider: Christiana Hernandez Home Meds and New Rx's Prescriptions: New ibuprofen 600 mg tablet 600 mg PO TID Qty: 30 0RF hydrocodone-acetaminophen 5-325 mg tablet 1 tab PO Q6H PRNQty: 5 0RF acetaminophen 500 mg capsule 1,000 mg PO Q8H PRN PRNQty: 30 0RF Continued atorvastatin [Lipitor] 40 mg tablet 40 mg PO DAILY Qty: 90 3RF lisinopril 10 mg tablet 10 mg PO DAILY Qty: 90 3RF ibuprofen 200 mg capsule 200 mg PO Q6H PRN0RF trazodone 100 mg tablet 100 mg PO QHS PRN (Reason: sleep) Qty: 90 3RF aspirin 81 MG tablet,chewable 81 mg PO DAILY 0RF Discharge Instructions Stand Alone Forms: [facility] Knee Arthroscopy Referrals: Rodrigo Beltran MD [ [facility] STAFF PHYSICIAN] - Equipment/Supplies: Partial Weight Bearing Crutches Activity:: Activity as Tolerated Remove Dressings/Wound Care:: 72 hours Shower/Bathe:: 72 hours Diet:: As Tolerated Discharge Orders Discharge Orders: Discharge Order (Routine); Ordered 01/31/22 Ordered By: Erica Mccauley DS: Diagnosis Discharge Diagnosis (1) Tear of medial meniscus of right knee, current: Status: Acute
--- NOTE | 2022-01-31 09:17 | W.ANESPRE ---
General Info Date of Service Date Performed: 01/31/22 Height: 5 ft 9.5 in Weight: 88.451 kg Body Mass Index (BMI): 28.3 Surgical Procedure: Operation Date: 01/31/22 12:55 Proposed Procedure Side Surgeon p Knee Arthroscopy Right Rodrigo Beltran MD Meds Allergies and Home Medications Allergies Allergy/AdvReac Type Severity Reaction Status Date / Time oxycodone AdvReac Intermediate Agitation Verified 01/31/22 10:43 prednisone AdvReac Intermediate Agitation, Verified 01/31/22 10:43 depressed mood clams AdvReac Severe gi Uncoded 01/31/22 10:47 Home Medication Medication Instructions Recorded aspirin 81 mg chewable tablet 81 mg PO DAILY 02/03/13 atorvastatin 40 mg tablet (Lipitor) 40 mg PO DAILY #90 tab-cap 12/14/20 lisinopril 10 mg tablet 10 mg PO DAILY #90 tab-cap 12/14/20 trazodone 100 mg tablet 100 mg PO QHS PRN #90 tab 03/30/21 ibuprofen 200 mg capsule 200 mg PO Q6H PRN 01/05/22 acetaminophen 500 mg capsule 1,000 mg PO Q8H PRN PRN #30 cap 01/31/22 hydrocodone 5 mg-acetaminophen 325 1 tab PO Q6H PRN #5 tab 01/31/22 mg tablet ibuprofen 600 mg tablet 600 mg PO TID #30 tab 01/31/22 Current Visit Medications: Current Medications Generic Name Dose Route Start Last Admin Trade Name Freq PRN Reason Stop Dose Admin Acetaminophen 650 mg 01/31/22 07:46 Acetaminophen 325 Mg Tab PO Q4H PRN PRN Hydrocodone Bitart/Acetaminophen 0 tab 01/31/22 07:47 Hydrocodone 5/Acetaminophen 325 Tab PO Q3H PRN PRN Pain Ringer's Solution 1,000 mls @ 80 mls/hr 01/31/22 06:00 IV 03/01/22 23:59 INFUSION CIERA Cefazolin Sodium/Dextrose 2 gm in 50 mls @ 100 mls/hr 01/31/22 06:00 Ancef Duplex IVPB 03/01/22 23:59 PREOP CIERA Ondansetron HCl 4 mg/ Sodium 52 mls @ 200 mls/hr 01/31/22 07:46 Chloride IVPB Q6H PRN PRN IV Miscellaneous Supplies 1 each 01/31/22 06:00 Iv Access IV 03/01/22 23:59 DIRECTED CIERA Sodium Chloride 0 ml 01/31/22 06:00 Normal Saline Flush 10 Ml Syr IV 03/01/22 23:59 PRN PRN Sodium Chloride 0 ml 01/31/22 06:00 Normal Saline 10 Ml Vial IJ 03/01/22 23:59 DIRECTED PRN Sterile Water 0 ml 01/31/22 06:00 Water,Injection,Sterile 10 Ml Vial IJ 03/01/22 23:59 DIRECTED PRN PFSH Active Problems Active Problems: Problem Status Onset Code Tear of medial meniscus of right knee, current S83.241A Internal derangement of right knee M23.91 Insomnia G47.00 Family history of heart disease Z82.49 GALLEGOS (dyspnea on exertion) R06.00 Bilateral knee pain M25.561, M25.562 Otitis externa H60.90 Routine medical exam Z00.00 Lumbar disc herniation with radiculopathy M51.16 Essential hypertension 05/15/13 I10 Hyperlipidemia 09/26/16 E78.5 Left leg numbness R20.0 Sensorineural hearing loss of both ears H90.3 Low back pain M54.5 Leg weakness R29.898 Medical History Medical History Anxiety reports being stressed financially while raising a family; denies current stressors Depression Diverticulosis GERD (gastroesophageal reflux disease) pt reports resolved HTN (hypertension) Hyperlipemia Osteoarthritis Surgical History Surgical History History of colonoscopy (~12/21/19) 2008- normal RUPTURE EXTENSOR POLLICIS LONGUS TENDON (04/02/12) RIGHT THUMB Status post nasal surgery reports surgery after trauma to his nose Tonsillectomy Trigger Finger release (02/04/13) BILATERAL MIDDLE FINGERS Tobacco Smoking/Tobacco Use Status: Former Tobacco Use Passive smoking exposure: No Alcohol Alcohol Intake: current Alcohol intake frequency: holidays/special occasions only Substance Use Substance use: Occasionally Substance use type: marijuana Vital Signs and Lab Results Vital Signs Most Recent Vital Signs in EMR: Temp Pulse Resp BP Pulse Ox 36.6 C 64 16 110/74 97 01/31/22 10:52 01/31/22 10:52 01/31/22 10:52 01/31/22 10:52 01/31/22 10:52 Lab Results Blood Type / Crossmatch: No Data to Display Complete Blood Count: No Data to Display Complete Metabolic Panel: No Data to Display Liver Function Panel: No Data to Display Coagulation Panel: No Data to Display Cardiac Panel: No Data to Display Arterial Blood Gas: No Data to Display Venous Blood Gas: No Data to Display Pancreas Panel: No Data to Display Thyroid Panel: No Data to Display Infectious Disease: Coronavirus (COVID-19)(PCR) Negative (Negative) 01/29/22 09:06 01/29/22 Coronavirus 2019 Source Nasal/Nares 01/29/22 09:06 01/29/22 Blood Cultures: No Data to Display Toxicology Panel: No Data to Display Imaging and Studies Imaging and Studies Study information below may be from another EMR and interpreted by another provider. Please see original notes in EMR for more complete details. Stress Test Summary: 01/2021: 10 METS, no evidence of ischemia on ECG. LVEF 47%, no perfusion defects. Anesthesia Assessment and Plan Anesthesia History Personal History: No History of Anesthesia Complications Family History: No Family History of Anesthesia Complications Exercise Tolerance Exercise Tolerance: Metabolic Equivalents>4 Cardiac & Pulmonary Exam Cardiac Exam: Normal S1/S2 Heart Sounds Pulmonary Exam: Clear Bilateral Breath Sounds Implantable Cardiac Device Does patient have a Pacemaker or an ICD?: No Airway Exam Known Difficult Airway: No Mallampati Class: 2 Mouth Opening: Normal (> 3cm) Thyromental Distance: Greater than 3 cm Neck Range of Motion: Full ROM Neck Circumference: Thick Teeth Condition: Normal Dentition ASA Classification ASA Score: ASA 2 Emergency Case?: No NPO Status NPO Status: NPO Clears >2 hours, Solids >8 hours Anesthesia Plan Resuscitation Status: Full Code Anesthesia Technique: General Anesthesia Airway Planned: LMA Monitors Used: Standard Monitors Preoperative Comments:: 66 yo male for knee scope. Sig PMHx: GALLEGOS, anxiety, GERD (resolved), HTN (lisinopril), former smoker, occ EtOH.
[2022-01-31] MEDS: Lactated Ringers 1,000 ML 80 ML IV (11:14)
[2022-01-31] MEDS: ceFAZolin 2 GM/50 ML BAG IVPB (12:34)
[2022-01-31] MEDS: Bupivacaine 0.5% Pres-Free 30 ML VIAL (12:52)
--- NOTE | 2022-01-31 14:17 | W.ANESPOSTOP ---
Postoperative Evaluation Date, Time and Location Date Performed: 01/31/22 Time Performed: 14:17 Patient Location: Day Surgery Unit Vital Signs Most Recent Imported Vital Signs: Most Recent Vital Signs Temp Pulse Resp BP Pulse Ox 36.4 C L 51 L 18 120/81 99 01/31/22 14:00 01/31/22 14:00 01/31/22 14:00 01/31/22 14:00 01/31/22 14:00 Pain Score Most Recent Pain Score: Most Recent Pain Score Pain Level 2 01/31/22 14:00 Assessment Mental Status: Awake (Alert & Oriented to Patient Baseline) Airway and Respiratory Function: Patent airway with normal (patient baseline) respiratory exam Cardiovascular Function: Hemodynamically Stable Hydration Status: Adequately Hydrated Nausea & Vomiting: No Nausea or Vomiting Pain: Pt. Denies Any Pain Peripheral Nerve Block: Patient did not receive a nerve block
--- NOTE | 2022-01-31 15:15 | W.PM.OP ---
Date of service: 01/31/22 Time of Service: 13:15 Operative Note Operative Note DATE OF PROCEDURE: 01/31/22 PRE-OP DIAGNOSIS: Right Knee Medial Meniscus Tear POST-OP DIAGNOSIS: same PROCEDURE: Arthroscopic Partial Medial Menisectomy - Right Knee SURGEON: Rodrigo Beltran Refer to Anesthesia Record ESTIMATED BLOOD LOSS: 0 PATHOLOGY: none sent COMPLICATIONS: None Patient was transported to: PACU Patient's condition: stable Indications: I have seen Marcell in clinic for symptoms of a meniscus tear. This was confirmed based on MRI and exam findings. Nonoperative measures were exhausted but disability and pain persisted. I discussed knee arthroscopy with meniscal intervention with the patient. I reviewed the risks of the procedure to include, but not limited to, bleeding, infection, pain, stiffness, damage to nerves or vessels, recurrence, blood clot. Despite these risks, the patient elected to proceed. 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 The consent was reviewed with the patient and signed. The history and physical was updated. All questions were answered. He was taken back to the operating room. The patient was placed into the supine position on the operating room table. All bony prominences were well padded. Prophylactic antibiotics in the form of Cefazolin were administered. The right leg was then prepped with Chloraprep and draped in a standard fashion with stockinette and extremity drape. A timeout to confirm correct identity, side and site, procedure, allergies, anesthesia, and medical concerns was performed. The leg was placed into a pneumatic leg faria, SPIDER2. A standard lateral portal was made at the lateral border of the patella tendon in line with the inferior pole of the patella, soft spot. The skin and deep tissue was incised sharply and the blunt trochar was inserted atraumatically. A diagnostic arthroscopy was performed and the findings are listed above. The suprapatellar pouch had no significant inflammatory change. The patellofemoral articulation showed Grade IV chondromalacia of the trochlea with some Grade II changs of the patella with good tracking. The lateral gutter had no loose bodies and the medial gutter had no loose bodies. The knee was brought into some valgus stress in extension to open the medial compartment. A medial portal was made, localized by a spinal needle. The portal was created with an #11 blade through skin and capsule under direct visualization avoiding any meniscal injury. A probe was then inserted into the medial compartment. The medial compartment was fully inspected. The chondral surface of the tibia showed Grade II chondromalacia and the surface of the femur showed Grade I chondromalacia. The medial meniscus had a complex tear with two loose fragments. There was a primary radial component in the posterior horn with a parrot beak type flap in the body. There was also fraying and complex tearing toward the root but the peripheral root fibers were intact. A large horizontal tear component was also present peripherally in the posterior horn. After evaluation, the meniscus was debrided down to a stable base using a series of biters and arthroscopic daysi. It was probed afterwards to confirm that the tear had been removed and the meniscus was stable. The notch was then inspected which showed an intact ACL and an intact PCL. The leg was then brought into a figure of 4 position. The lateral compartment was fully inspected with the arthroscope and a probe. The chondral surface of the lateral femur showed no significant chondromalacia. The chondral surface of the lateral tibia showed Grade I chondromalacia. The lateral meniscus had no meniscal tear. The arthroscope was brought back into the suprapatellar pouch and the leg was in full extension. The knee was thoroughly irrigated with the arthroscopic fluid on high flow and pressure. Inflow was stopped and excess fluid was removed. The wounds were closed with 4-0 Nylon. They were dressed with Xeroform, 4x4 gauze, ABD pad, Kerlix and an CHRISTIANO wrap. A cryo-cuff was applied. The patient tolerated the procedure well and was returned to the Same Day Surgery area in a stable condition suffering no known complication.
== END 2022-01-31 15:04 | disposition home or self-care (01) ==
LOC: SUR 10:24
PROVIDERS: PCP Nurse Practitioner; Visit Provider Student in an Organized Health Care Education/Training Program
PROC: (CPT 29870; principal; 2022-01-31 12:45)
DX: S83.241A Other tear of medial meniscus, current injury, right knee, initial encounter (principal); G47.00 Insomnia, unspecified; I10 Essential (primary) hypertension; E78.5 Hyperlipidemia, unspecified; X58.XXXA Exposure to other specified factors, initial encounter
CPT/HCPCS: 29881; J0690; J1100; J1885; J2001; J2405; J2704

== ENCOUNTER → 2022-03-16 00:24 | Outpatient (CLI) | payer MEDICAID, SELFPAY ==
--- NOTE | 2022-03-16 06:30 | DI.RAD_ITS ---
Exam(s) XR WRIST LT COMPLETE EXAM: XR WRIST LT COMPLETE CLINICAL HISTORY: pain, s/p injury around 08/2021,M25.532. TECHNIQUE: 2D digital imaging was performed of the left wrist. Three images were obtained. PA, obl ique and lateral views were obtained. COMPARISON: No exams were available for comparison FINDINGS: BONES: No acute fracture is present. No bony destructive lesion is seen. JOINTS: The carpal bones are normally aligned. SOFT TISSUE: Normal. IMPRESSION: Unremarkable radiographs of the left wrist. DATA REPOSITORY: RADIATION DOSE DELIVERED:
--- NOTE | 2022-03-16 06:30 | DI.CT_ITS ---
Exam(s) CT CHEST WO EXAM: CT CHEST WO CLINICAL HISTORY: history exposure toxins at work, intermittent SOB,BACK PAIN,FORMER SMOKER. TECHNIQUE: Imaging protocol: Axial computed tomography images were obtained and coronal and sagittal reformatted images were created and reviewed. COMPARISON: No exams were available for comparison FINDINGS: Tracheobronchial tree: Patent where visualized. Pulmonary parenchyma: No consolidation or dominant measurable mass. No architectural distortion. Mediastinum and Bridget: No dominant adenopathy or fluid collection. The esophagus is unremarkable. Thyroid gland: Unremarkable. Pleura: No effusion or pneumothorax. Heart: The heart is not dilated. Coronary artery calcifications are present. No pericardial effusion . Aorta: Thoracic aorta non-dilated. Atherosclerosis. Upper abdomen: Unremarkable. Lymph nodes: Within normal limits. Soft tissues: Unremarkable. Bones:Within normal limits for the patient's age. IMPRESSION: No acute pulmonary process. No pulmonary nodules are present. RADIATION DOSE DELIVERED: 531.57mGy.cm Total DLP 531.57mGy.cm Total DLP DATA REPOSITORY: All CT scans at this facility are submitted to the National Radiology Data Registry (NRDR) Dose Index Registry (DIR) with the [employer] (ACR). RADIATION OPTIMIZATION: All CT scans at this facility use at least one of these dose optimization te chniques: automated exposure control; mA and/or kV adjustment per patient size (includes targeted exa ms where dose is matched to clinical indication); or iterative reconstruction.
== END ==
PROVIDERS: PCP Nurse Practitioner; Visit Provider Nurse Practitioner
DX: M25.532 Pain in left wrist (principal); R06.02 Shortness of breath; M54.89 Other dorsalgia; Z87.891 Personal history of nicotine dependence
CPT/HCPCS: 71250; 73110

== ENCOUNTER 2022-03-16 02:31 | Outpatient (CLI) | payer MEDICAID, SELFPAY | END 2022-03-16 02:32 | disposition home or self-care (01) | LOC: LBO 02:31 | PROVIDERS: PCP Nurse Practitioner; Visit Provider Nurse Practitioner ==

== ENCOUNTER → 2022-04-24 02:04 | Outpatient (CLI) | payer MEDICAID, SELFPAY ==
--- NOTE | 2022-04-24 07:12 | DI.US_ITS ---
Exam(s) US AAA SCREENING EXAM: US AAA SCREENING CLINICAL HISTORY: screen AAA, hx of smoking, Z13.6, Z87.891 TECHNIQUE: Ultrasound performed using standard protocol. COMPARISON: No exams were available for comparison FINDINGS: Limited ultrasound examination of the abdomen was performed to evaluate possibility of abdominal aort ic aneurysm. There is no abdominal aortic aneurysm, maximal mid to distal abdominal aorta diameter i s about 23 millimeters. Right and left common iliac arteries measure about 13 and 14 millimeters in greatest diameter respectively. No retroperitoneal fluid collection or mass identified. IMPRESSION: No evidence of abdominal aortic aneurysm. DATA REPOSITORY:
== END ==
PROVIDERS: PCP Nurse Practitioner; Visit Provider Nurse Practitioner
DX: Z13.6 Encounter for screening for cardiovascular disorders (principal); Z87.891 Personal history of nicotine dependence
CPT/HCPCS: 76706

== ENCOUNTER 2022-08-03 10:01 | Outpatient (CLI) | payer MEDICAID, SELFPAY ==
--- NOTE | 2022-08-03 09:45 | DI.RAD_ITS ---
Exam(s) XR WRIST LT COMPLETE EXAM: XR WRIST LT COMPLETE CLINICAL HISTORY: Left wrist pain TECHNIQUE: COMPARISON: CR XR WRIST LT COMPLETE from 03/16/2022 FINDINGS: Three views were obtained. There are minimal calcific or ossific densities associated with the radio ulnar joint. The are you J does not appear widened. Carpal alignment appears within normal limits. Minimal degenerative changes noted involving the joints of the carpus. IMPRESSION: Mild DJD. RADIATION DOSE DELIVERED: Total DLP
== END 2022-08-03 10:02 | disposition home or self-care (01) ==
LOC: DIORS 10:01
PROVIDERS: PCP Nurse Practitioner; Referring Provider Nurse Practitioner; Visit Provider Physician Assistant
DX: M25.532 Pain in left wrist (principal); M19.032 Primary osteoarthritis, left wrist
CPT/HCPCS: 73110

== ENCOUNTER 2022-10-02 10:08 | Outpatient (CLI) | payer MEDICAID, SELFPAY ==
--- NOTE | 2022-10-02 08:30 | DI.RAD_ITS ---
Exam(s) XR SHOULDER LT COMPLETE 2+V EXAM: XR SHOULDER LT COMPLETE 2+V CLINICAL HISTORY: left shoulder pain. TECHNIQUE: 2D digital imaging was performed. COMPARISON: CR XR shoulder RT complete 2+V from 10/08/2018 FINDINGS: 3 views No evidence of fracture or dislocation nor abnormal soft tissue calcifications. There are mild degen erative changes in the glenohumeral joint. Subacromial space is not diminished. AC joint appears mi nimal degenerative change. No osseous lesions. Bone density normal. IMPRESSION: Mild degenerative changes in the glenohumeral joint. DATA REPOSITORY: RADIATION DOSE DELIVERED:
== END 2022-10-02 10:09 | disposition home or self-care (01) ==
LOC: DIORS 10:08
PROVIDERS: PCP Nurse Practitioner; Referring Provider Nurse Practitioner; Visit Provider Student in an Organized Health Care Education/Training Program
DX: M25.512 Pain in left shoulder (principal); G89.29 Other chronic pain; M19.012 Primary osteoarthritis, left shoulder
CPT/HCPCS: 73030

== ENCOUNTER 2022-10-19 11:20 | Outpatient (REF) | payer MEDICAID, SELFPAY ==
[2022-10-19 16:56] LABS: Bacteria Many HPF (Negative); C & S Indicated? C&S Done As Ordered; Casts Negative LPF (Negative); Crystals Negative HPF (Negative); Epithelial Cells Few HPF (Negative); Mucus Trace (Negative); RBC 20-50 HPF (0-2)
== END 2022-10-19 11:21 | disposition home or self-care (01) ==
LOC: LBN 11:20
PROVIDERS: PCP Nurse Practitioner; Visit Provider Nurse Practitioner Family
DX: R30.0 Dysuria (principal); R31.9 Hematuria, unspecified; R35.0 Frequency of micturition; R82.90 Unspecified abnormal findings in urine
CPT/HCPCS: 87077; 81015; 87086; 87186

== ENCOUNTER 2022-10-31 11:50 | Outpatient (REF) | payer MEDICAID, SELFPAY ==
[2022-10-31 16:06] LABS: Bacteria Rare HPF (Negative); C & S Indicated? No; Crystals Negative HPF (Negative); Epithelial Cells Rare HPF (Negative); Mucus Negative (Negative); RBC 0-2 HPF (0-2); WBC 0-2 HPF (0-5)
== END 2022-10-31 11:51 | disposition home or self-care (01) ==
LOC: LBN 11:50
PROVIDERS: Nurse Practitioner Family; PCP Nurse Practitioner; Visit Provider Nurse Practitioner
DX: R31.29 Other microscopic hematuria (principal)
CPT/HCPCS: 81015

== ENCOUNTER → 2022-11-02 00:54 | Outpatient (CLI) | payer MEDICARE, MEDICAID, SELFPAY ==
--- OUTSIDE RECORDS SUMMARY | 2022-11-02 00:55 | XMS_ITS | Encounter Summary ---
:1955 Author Organization [facility] [place] [address] Care Team Providers Name Role Phone Unavailable Primary Care Provider Unavailable Encounter Details Date Type Department Care Team Description 02/28/2016 Hospital Encounter Radiology [place] [facility] [place], [place] [address] Social History Tobacco Use Types Packs/Day Years Used Date Smoking Tobacco: Never Assessed Sex Assigned at Date Recorded Not on file documented as of this encounter Medications at Time of Discharge Medication Sig Dispensed Refills Start Date End Date aspirin 81 mg Tablet, Chewable Daily 0 02/03 documented as of this encounter Plan of Treatment Not on filedocumented as of this encounter Procedures Procedure Name Priority Date/Time Associated Diagnosis Comme nts FILM LIBRARY Routine 02/28/2016 12:00 AM Pain Results for this STORAGE ONLY MR EDT procedure ar e in SPINE the results section. documented in this encounter Results Film Library- Storage only MR Spine (02/28/2016 12:00 AM EDT) Specimen (Source) Anatomical Location Collection Method / Collectio n Time Received Time / Laterality Volume Narrative [facility]ANNAH - 03/12/2016 4:16 AM EDT This exam is for storage only and is aut o-finalizing. Dr Bettina Cochran Randal FILM LIBRARY ORDERABLES Performing Organization Address City/State/ZIP Code Phon e Number [place], [place] documented in this encounter Visit Diagnoses Diagnosis Pain Generalized pain documented in this encounter
--- OUTSIDE RECORDS SUMMARY | 2022-11-02 00:55 | XMS_ITS | Encounter Summary ---
:1955 Author Organization [facility] [place] [address] Care Team Providers Name Role Phone Christiana Hernandez APRN Primary Care Provider Reason for Referral Consultation (Routine) - Authorized Specialty Diagnoses / Procedures Referred By Contact Refer red To Contact Orthopaedics Diagnoses Slac (scapholunate advanced collapse) of wrist, left Rodrigo Beltran MD Warhold, Lance G, MD [address] [place], [place] [address] [place] [address] Phone: Fax: Referral ID Status Reason Start Expiration Visits Visits Date Date Requested Authorized [id number] Authorized Consult, 08/14/2022 08/14/2023 6 6 Test & Treat PCP Updated and/or Approved Encounter Details Date Type Department Care Team Description 08/14/2022 Transcribe Orders eDH Incoming Hannah Beltran (scap holunate Referrals MD Rodrigo advanced collapse) of [phone] [address] wrist, [place] [address] Social History Tobacco Use Types Packs/Day Years Used Date Smoking Tobacco: Never Assessed Sex Assigned at Date Recorded Not on file documented as of this encounter Plan of Treatment Scheduled Referrals Name Type Priority Associated Order Schedule Diagnoses Referral to Outpatient Referral Routine Slac (scapholunate Or dered: Orthopaedics advanced collapse) 2 of wrist, left documented as of this encounter Visit Diagnoses Diagnosis Slac (scapholunate advanced collapse) of wrist, left documented in this encounter Care Teams Diesel Maintenance Technician Relationship Specialty Start Date End Date Christiana Hernandez APRN PCP - General Internal Medicine 10/14/[address] [place] [address] documented as of this encounter
--- OUTSIDE RECORDS SUMMARY | 2022-11-02 00:55 | XMS_ITS | Encounter Summary ---
:1955 Author Organization [facility] [place] [address] Care Team Providers Name Role Phone Christiana Hernandez APRN Primary Care Provider Encounter Details Date Type Department Care Team Description 08/03/2022 Ancillary Procedure Radiology Library at Christiana Hernandez [facility] [address] [place] [id number] [phone] (Wo rk) Social History Tobacco Use Types Packs/Day Years Used Date Smoking Tobacco: Never Assessed Sex Assigned at Date Recorded Not on file documented as of this encounter Plan of Treatment Not on filedocumented as of this encounter Procedures Procedure Name Priority Date/Time Associated Diagnosis Comme [facility] FILM LIBRARY Routine 08/03/2022 12:00 AM Results for this STORAGE ONLY DX EDT procedure ar e in WRIST the results section. documented in this encounter Results Film Library- Storage Only DX Wrist (08/03/2022 12:00 AM EDT) Specimen (Source) Anatomical Location Collection Method / Collectio n Time Received Time / Laterality Volume Narrative RAD - 08/07/2022 1:07 PM EDT This exam is auto-finalizing. It's purpo se is for storage only. Christiana Hernandez APRN IMG FILM LIBRARY ORDERABLES Performing Organization Address City/State/ZIP Code Phon e Number RAD [place], [place] documented in this encounter Visit Diagnoses Not on filedocumented in this encounter Care Teams Senior Pricing Analyst Relationship Specialty Start Date End Date Christiana Hernandez APRN PCP - General Internal Medicine 10/14/[address] [place] [place] [address] documented as of this encounter
--- OUTSIDE RECORDS SUMMARY | 2022-11-02 00:55 | XMS_ITS | Encounter Summary ---
:1955 Author Organization [facility] [place] [address] Care Team Providers Name Role Phone Christiana Hernandez APRN Primary Care Provider Encounter Details Date Type Department Care Team Description 09/26/2022 Travel Social History Tobacco Use Types Packs/Day Years Used Date Smoking Tobacco: Former Cigarettes Smokeless Tobacco: Former Alcohol Use Standard Drinks/Week Comments Not Currently 2 (1 standard drink = 0.6 oz pure alcoho l) Sex Assigned at Date Recorded Not on file documented as of this encounter Plan of Treatment Not on filedocumented as of this encounter Visit Diagnoses Not on filedocumented in this encounter Care Teams Aircraft Accessories Mechanic Relationship Specialty Start Date End Date Christiana Hernandez APRN PCP - General Internal Medicine 10/14/19 [address] [place] [address] documented as of this encounter
--- OUTSIDE RECORDS SUMMARY | 2022-11-02 00:55 | XMS_ITS | Encounter Summary ---
:1955 Author Organization [facility] [place] [address] Care Team Providers Name Role Phone Christiana Hernandez APRN Primary Care Provider Encounter Details Date Type Department Care Team Description 10/27/2019 Ancillary Procedure Radiology at [facility] Omar Moulton, [address] [place] [address] [address] [phone] DR [place] [place], [place] [address] (Wo rk) Social History Tobacco Use Types Packs/Day Years Used Date Smoking Tobacco: Never Assessed Sex Assigned at Date Recorded Not on file documented as of this encounter Plan of Treatment Not on filedocumented as of this encounter Procedures Procedure Name Priority Date/Time Associated Diagnosis Comme nts FILM LIBRARY Routine 10/27/2019 12:00 AM Results for this STORAGE ONLY MR EST procedure ar e in SPINE the results section. documented in this encounter Results Film Library- Storage Only MR Spine (10/27/2019 12:00 AM EST) Specimen (Source) Anatomical Location Collection Method / Collectio n Time Received Time / Laterality Volume Narrative RAD - 11/06/2019 3:48 PM EST This exam is auto-finalizing. It's purpo se is for storage only. Omar Moulton MD IMG FILM LIBRARY ORDERABLES Performing Organization Address City/State/ZIP Code Phon e Number RAD [place], [place] documented in this encounter Visit Diagnoses Not on filedocumented in this encounter Care Teams Engineering And Operations Director Relationship Specialty Start Date End Date Mary, Christiana A, STENCIL MACHINE OPERATOR PCP - General Internal Medicine 10/14/[address] [place] [address] documented as of this encounter
--- OUTSIDE RECORDS SUMMARY | 2022-11-02 00:55 | XMS_ITS | Encounter Summary ---
:1955 Author Organization [facility] [place] [address] Care Team Providers Name Role Phone Christiana Hernandez APRN Primary Care Provider Encounter Details Date Type Department Care Team Description 03/16/2022 Ancillary Procedure Radiology Library at Christiana Hernandez [facility] [address] [place] [phone] (Wo rk) Social History Tobacco Use Types Packs/Day Years Used Date Smoking Tobacco: Never Assessed Sex Assigned at Date Recorded Not on file documented as of this encounter Plan of Treatment Not on filedocumented as of this encounter Procedures Procedure Name Priority Date/Time Associated Diagnosis Comme [facility] FILM LIBRARY Routine 03/16/2022 12:00 AM Results for this STORAGE ONLY DX EDT procedure ar e in WRIST the results section. documented in this encounter Results Film Library- Storage Only DX Wrist (03/16/2022 12:00 AM EDT) Specimen (Source) Anatomical Location Collection Method / Collectio n Time Received Time / Laterality Volume Narrative RAD - 08/07/2022 1:05 PM EDT This exam is auto-finalizing. It's purpo se is for storage only. Christiana Hernandez APRN IMG FILM LIBRARY ORDERABLES Performing Organization Address City/State/ZIP Code Phon e Number RAD [place], [place] documented in this encounter Visit Diagnoses Not on filedocumented in this encounter Care Teams Roulette Dealer Relationship Specialty Start Date End Date Christiana Hernandez APRN PCP - General Internal Medicine 10/14/[address] [place] [address] documented as of this encounter
--- OUTSIDE RECORDS SUMMARY | 2022-11-02 00:55 | XMS_ITS | Clinical Summary ---
:1955 Author Organization [facility] [place] [address] Care Team Providers Name Role Phone Christiana Hernandez APRN Primary Care Provider Allergies No known active allergies Medications Medication Sig Dispensed Refills Start Date End Date Status aspirin 81 mg Tablet, Daily 0 02/03/2013 Active Chewable traZODone (Desyrel) 100 TAKE ONE AND 0 06/22/2022 Active mg Tablet ONE-HALF TABLETS BY MOUTH AT BEDTIME NEEDED FOR SLEEP lisinopriL (Zestril) 10 Take 10 mg by 0 08/19/2022 Active mg Tablet mouth daily. atorvastatin (Lipitor) Take 40 mg by 0 08/19/2022 Active 40 mg Tablet mouth daily. Active Problems Problem Noted Date Wrist arthritis, left 09/26/2022 Encounters Date Type Specialty Care Team Description 09/26/2022 Office Visit Orthopaedics James Reed, Wrist arth ritis, elver GOMEZ 09/26/2022 Travel 08/14/2022 Transcribe Orders Primary Care Rodrigo Beltran Slac (scapholunate advanced collap se) of wrist, left 08/03/2022 Ancillary Procedure Radiology Christiana Hernandez APRN from Last 3 Months Social History Tobacco Use Types Packs/Day Years Used Date Smoking Tobacco: Former Cigarettes Smokeless Tobacco: Former Alcohol Use Standard Drinks/Week Comments Not Currently 2 (1 standard drink = 0.6 oz pure alcoho l) Sex Assigned at Date Recorded Not on file Last Filed Vital Signs Vital Sign Reading Time Taken Comments Blood Pressure 122/78 09/26/2022 10:27 AM EDT Pulse - - Temperature - - Respiratory Rate - - Oxygen Saturation - - Inhaled Oxygen Concentration - - Weight 88.5 kg (195 lb) 09/26/2022 10:27 AM EDT Height 179.1 cm (5' 10.5) 09/26/2022 10:27 AM EDT Body Mass Index 27.58 09/26/2022 10:27 AM EDT Plan of Treatment Health Maintenance Due Date Last Done Comments Covid-19 Vaccine (#1) 05/17/1956 HIV screen 1975 Hepatitis C Screening 1975 Tdap adult 1976 Tetanus vaccine 1976 Diabetes Screening (HgbA1C or Glucose) 1997 Colonoscopy 2002 Zoster vaccine (1 of 2) 2007 Advance Directive 2012 Influenza (Flu) vaccine (1 of 1 - Influenza standard 08/02/2022 series) Procedures Procedure Name Priority Date/Time Associated Diagnosis Comme nts FILM LIBRARY Routine 08/03/2022 12:00 AM Results for this STORAGE ONLY DX EDT procedure ar e in WRIST the results section. from Last 3 Months Results Film Library- Storage Only DX Wrist (08/03/2022 12:00 AM EDT) Specimen (Source) Anatomical Location Collection Method / Collectio n Time Received Time / Laterality Volume Narrative RAD - 08/07/2022 1:07 PM EDT This exam is auto-finalizing. It's purpo se is for storage only. Christiana Hernandez APRN IMG FILM LIBRARY ORDERABLES Performing Organization Address City/State/ZIP Code Phon e Number [place], [place] from Last 3 Months Insurance Payer Benefit Plan / Subscriber ID Effective Dates Phone Addre ss Type Group MEDICAID [id number] 2019-Pres [phone] [address] PRIMARY CARE ent [address] [place], [place] [id number] Care Teams Slumber Room Attendant Relationship Specialty Start Date End Date Christiana Hernandez APRN PCP - General Internal Medicine 10/14/19 [address] [place] [address]
--- OUTSIDE RECORDS SUMMARY | 2022-11-02 00:56 | XMS_ITS | Encounter Summary ---
:1955 Author Organization [facility] Address [address] [place] [address] Care Team Providers Name Role Phone Don Landon MD Primary Care Provider [phone] Encounter Details Date Type Department Care Team Description 12/06/2020 Lab Requisition [facility] Outr Resulting Lab, Pathology & Laboratory Provider [facility] [address] [place], [place] [address] Social History Tobacco Use Types Packs/Day Years Used Date Smoking Tobacco: Never Assessed Sex Assigned at Date Recorded Not on file documented as of this encounter Plan of Treatment Not on filedocumented as of this encounter Procedures Procedure Name Priority Date/Time Associated Diagnosis Comme nts COVID-19 TEST [facility] Today 12/06/2020 8:57 EST LAB PCR COVID-19 TESTING Routine 12/06/2020 8:57 EST Resu lts for this procedure are i n the results section. documented in this encounter Results COVID-19 TEST [facility] LAB PCR (12/06/2020 8:57 EST) Specimen Anatomical Location Collection Method Collection Time Received Time (Source) / Laterality / Volume Swab ENTIRE NASOPHARYNX 12/06/2020 8:57 2020 / Unknown EST 16:03 EST Provider Outr Resulting Lab MICROBIOLOGY - GENERAL ORD ERABLES Performing Organization Address City/State/ZIP Code Phon e Number [facility] [address] [place] [address] SERVICES COVID-19 TESTING (12/06/2020 8:57 EST) Analysis Performed At [facility] Time Signature COVID-19 Negative Negative 12/07/2020 [facility] rt-PCR Result 19:22 EST CENTER LABORATORY SERVICES Comment: Negative results do not preclude 2019-nC oV infection and should not be used as the sole basis for treatment or other patient management decisions. Negative results must be combined with clinical observa tions, patient history, and epidemiologi [place] information. This test was developed and its performa nce characteristics determined by [facility]. It has not been cleared or approved by the US Food and Drug Administration. FDA does not require this test to go through premarket FDA review. This test is used for clinical purposes. It should not be regarded as investigational or for research. This laboratory is certified under the Clinical Laboratory Improvement Amendm ents (CLIA) as qualified to perform high complexity clinical laboratory testing. This test is based on the [facility] COVID-19 E mergency Use Authorization (EUA) assay, with minor modification as defined by the FDA Performed on the [employer] 7 Flex. Performing Lab 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
--- OUTSIDE RECORDS SUMMARY | 2022-11-02 00:56 | XMS_ITS | Encounter Summary ---
:1955 Author Organization [facility] Address [address] [place] [address] Care Team Providers Name Role Phone Don Landon MD Primary Care Provider [phone] Encounter Details Date Type Department Care Team Description 12/21/2019 Lab Requisition [facility] Дмитрий Myrick for Pathology & MD Mert screening for Laboratory Medicine [address] malignant neoplasm - [place], [place] of colon [address] [facility] [address] [place], [place] [id number] Social History Tobacco Use Types Packs/Day Years Used Date Smoking Tobacco: Never Assessed Sex Assigned at Date Recorded Not on file documented as of this encounter Plan of Treatment Not on filedocumented as of this encounter Procedures Procedure Name Priority Date/Time Associated Diagnosis Comme nts SURGICAL PATHOLOGY Today 12/21/2019 8:38 EST Encounter for R esults for this screening for procedure are in malignant neoplasm the resul ts of colon section. documented in this encounter Results SURGICAL PATHOLOGY (12/21/2019 8:38 EST) Component Value Ref Test Analysis Performed At [facility] Range Method Time Signature Amendment This is an amended report wh ich replaces the original pathology report issued on 12/23/2019. This amendment is 02/09/2020 [facility] Comment being issued to correct the attestation. There is no change to the diagnosis. 17:23 EDT CENTER LABORATORY SERVICES Final A. 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 17:23 ED T CENTER electronically LABORATORY signed by B. RECTUM, POLYP, BIOPSY: SERV ICES Rose Hagan, - Fragments of hyperplastic polyp. on 02/09/2020 at 1723 Electronic ally signed by Madelyn Hagan MD on 12/23 at 0936 Clinical Colon cancer screening 02/09/2020 [facility] History 17:23 EDT CENTER 1. Cecal polyp LABORATORY 2. Rectal polyp SERVICES Attestation There was 02/09/2020 [facility] Amend ment significant 17:23 EDT CENTER electron mil resident/fellow LABORATORY sig mike by involvement in SERVICES Rose Barrett, the diagnostic MD on 02/09/2020 evaluation of at 172 3 this case. By the signature below, the attending physician certifies that they have personally conducted a gross and/or microscopic examination of the described specimens and rendered or confirmed the above diagnosis. Gross A. Received in formalin labe lled with proper patient identification (initials P, L) and 1. Cecal polyp are 2 lozano-pink tissue fragments (0.3 x 0.2 x 0.1 cm and 0.6 x 0.2 x 0.1 cm). Submitted in toto in A1. 02/09/2020 [facility] Description 17:23 EDT CENTER B. Received in formalin labe lled with proper patient identification (initials P, L) and 2. Rectal polyp are 3 lozano-pink tissue fragments (0.3 x 0.2 x 0.1 cm to 0.4 x 0.3 x 0.1 cm). Submitted in toto in B1. LABORATORY SERVICES Vanessa Gdofrey 12/21/2019 16:29 Resident/Franklin Tamayo DO 02/09/2020 [facility] w: 17:23 T CENTER LABORATORY SERVICES Scanned Images 02/09/2020 [facility] 17:23 T CENTER LABORATORY SERVICES Specimen Anatomical Collection Method Collection Time Receive d Time (Source) Location / / Volume Laterality Tissue SPECIMEN FROM 12/21/2019 8:38 12/21/2019 [facility] / Unknown EST 16:23 EST Tissue specimen SPECIMEN FROM 12/21/2019 8:38 12/21/19 20 (specimen) [facility] / Unknown EST 16:23 EST Mert Myrick MD PATHOLOGY ORDERABLES Performing Organization Address City/State/ZIP Code Phon e Number [facility] [address] [place] [address] SERVICES documented in this encounter Visit Diagnoses Diagnosis Encounter for screening for malignant ne oplasm of colon Special screening for malignant neoplasm s, colon documented in this encounter Care Teams Logistics Tech Relationship Specialty Start Date End Date Don Landon MD PCP - General 03/14/11 [address] [facility] [phone] documented as of this encounter
--- OUTSIDE RECORDS SUMMARY | 2022-11-02 00:56 | XMS_ITS | Encounter Summary ---
:1955 Author Organization [facility] Address [address] [place] [address] Care Team Providers Name Role Phone Don Landon MD Primary Care Provider [phone] Encounter Details Date Type Department Care Team Description 09/27/2021 Lab Requisition [facility] Outr Resulting Lab, Pathology & Laboratory Provider [facility] [address] [place], [place] [id number] Social History Tobacco Use Types Packs/Day Years Used Date Smoking Tobacco: Never Assessed Sex Assigned at Date Recorded Not on file documented as of this encounter Plan of Treatment Not on filedocumented as of this encounter Procedures Procedure Name Priority Date/Time Associated Diagnosis Comme nts HEPATITIS C AB W Routine 09/27/2021 7:53 EDT Resu lts for this REFLEX TO HCV RNA procedure are in BY PCR the results section. documented in this encounter Results HEPATITIS C AB W REFLEX TO HCV RNA BY PCR (09/27/2021 7:53 EDT) Analysis Performed At Patho logist Time Signature Hep C Antibody Negative Negative 09/28/2021 [facility] 10:37 EDT CENTER LABORATORY SERVICES Specimen Anatomical Collection Method Collection Time Receive d Time (Source) Location / / Volume Laterality Blood VENOUS BLOOD / 09/27/2021 7:53 09/27/2021 Unknown EDT 16:01 EDT Provider Outr Resulting Lab CHEMISTRY & BLOOD GAS GENA Garrett Organization Address City/State/ZIP Code Phon e Number [facility] [address] [place] [address] SERVICES documented in this encounter Visit Diagnoses Not on filedocumented in this encounter Care Teams Telecommunication Tower Technician Relationship Specialty Start Date End Date Don Landon MD PCP - General 03/14/[address] [place] [phone] documented as of this encounter
--- OUTSIDE RECORDS SUMMARY | 2022-11-02 00:56 | XMS_ITS | Encounter Summary ---
:[address] [facility] Address [address] [place] [address] Care Team Providers Name Role Phone Unavailable Primary Care Provider Unavailable Encounter Details Date Type Department Care Team Description 03/09/2011 Results Only [facility] Vern Mclaughlin , Laboratory Services - DO [address] JUAN MANUEL MATSON [address] [place] [address] [place] [address] [phone] Social History Tobacco Use Types Packs/Day Years Used Date Smoking Tobacco: Never Assessed Sex Assigned at Date Recorded Not on file documented as of this encounter Plan of Treatment Not on filedocumented as of this encounter Procedures Procedure Name Priority Date/Time Associated Diagnosis Comme [facility] SURGICAL PATHOLOGY Routine 03/09/2011 0:00 EDT Re sults for this procedure are i n the results section. documented in this encounter Results SURGICAL PATHOLOGY (03/09/2011 0:00 EDT) Component Value Ref Test Analysis Performed Pathologis t Range Method Time At Signature Pathology SURGICAL PATHOLOGY REPORT ? AUTUMN HER Report: Reports generated via electr Gusto interface contain original data; ? THELMA PHILLIPS however they are lacking the format of the original report. ? Caution should be taken when reading/interpreting unformatted reports. ? Name: ? DANAE, MARCELL P ? Accession #: ? [id number] ? : ? 1955 (Age: 55) ??M ? Collec t Date: ? 03/09/2011 ? Location: ? [facility] ? R eceive Date: ? 03/12/2011 ? Provider: VERN ELDRIDGE SON DO ? Copy to: STANLEY L PATEL N P ? SAMANTHA MEIERDIERCKS MD ? Final Pathologic Diagnosis: ? Skin of anterior ches t wall, right, excisional biopsy: ? - Verruca vulgaris. ? Microscopic Description: ? The stratum corneum i s thickened by compact orthohyperkeratosis with tiers of parakeratosis and foci of hemorrhage. ??The epidermis is hyperplastic with ? papillomatosis and acanthosi s. ??The acanthotic rete ridges have an ? inward-bending configuration . ??The superficial keratinocytes have perinuclear ?? vacuoles. ??The granular lay er is accentuated. ??(Dr. Rondon)/darren ? Document reviewed and electr onically signed by: ? DINO RONDON MD ? Report ??Date: 03/13/2011 17 :06 ? By the signature above, the attending physician certifies that he/she has ? personally conducted a gross and/or microscopic examination of the described ? specimens and rendered or co nfirmed the above diagnosis. ? Specimen(s) Received: ? Skin lesion anterior chest wall, Rt side ? Clinical History: ? Skin lesion anterior chest wall, right side; grew quickly ? Gross Description: ? Received in formalin labelled Danae Marcell and skin lesion anterior ?? chest is an unoriented cookie ptical excision of lozano skin measuring 1.0 x 0.6 cm ?? and is excised to a depth of 0.2 cm. ??There is a central 0.7 x 0.7 x 0.5 cm ? arreaga-white, nodular papule. ??The margins are inked. ??The specimen is serially ?? sectioned and entirely submi tted as (A1) central sections and (A2) tips, reverse en face. ??(Haven Roberts)/arline ? End of Report ? Specimen (Source) Anatomical Collection Method Collection Time Re ceived Time Location / / Volume Laterality 03/09/2011 03/12/2011 15:1 6 EDT Vern Mclaughlin DO PATHOLOGY ORDERABLES Performing Organization Address City/State/ZIP Code Phon e Number [facility] [address] [place] [address] SERVICES [facility] [address] [place] [address] documented in this encounter Visit Diagnoses Not on filedocumented in this encounter
--- OUTSIDE RECORDS SUMMARY | 2022-11-02 00:56 | XMS_ITS | Encounter Summary ---
:1955 Author Organization [facility] Address [address] [place] [address] Care Team Providers Name Role Phone Don Landon MD Primary Care Provider [phone] Encounter Details Date Type Department Care Team Description 09/27/2021 Lab Requisition [facility] Outr Resulting Lab, Pathology & Laboratory Provider [facility] [address] [place] [address] Social History Tobacco Use Types Packs/Day Years Used Date Smoking Tobacco: Never Assessed Sex Assigned at Date Recorded Not on file documented as of this encounter Plan of Treatment Not on filedocumented as of this encounter Procedures Procedure Name Priority Date/Time Associated Comments Diagnosis HIV 1/2 ANTIGEN AND Routine 09/27/2021 7:53 EDT R esults for this ANTIBODY, 4TH procedure are in GENERATION the results section. documented in this encounter Results HIV 1/2 ANTIGEN AND ANTIBODY, 4TH GENERATION (09/27/2021 7:53 EDT) [facility] Method Time Signature HIV 1 and 2 Negative Negative 09/28/2021 [facility] Antibody/p24 10:56 EDT CENTER Antigen, 4th LABORATORY Generation SERVICES Comment: If acute HIV-1 infection is suspected in a high risk ??patient, submit plasma specimen for HIV-1 RNA quantitation test. Fourth Generation assay performed on the Siemens [employer]. Specimen Anatomical Collection Method Collection Time Receive d Time (Source) Location / / Volume Laterality Blood VENOUS BLOOD / 09/27/2021 7:53 09/27/2021 Unknown EDT 16:01 EDT Provider Outr Resulting Lab IMMUNOLOGY AND SEROLOGY OR DERABLES Performing Organization Address City/State/ZIP Code Phon e Number [facility] [address] [place] [address] SERVICES documented in this encounter Visit Diagnoses Not on filedocumented in this encounter Care Teams Serials Librarian Relationship Specialty Start Date End Date Don Landon MD PCP - General 03/14/11 [address] [facility] [place] [phone] documented as of this encounter
--- OUTSIDE RECORDS SUMMARY | 2022-11-02 00:56 | XMS_ITS | Encounter Summary ---
:1955 Author Organization [facility] [place] [address] Care Team Providers Name Role Phone Unavailable Primary Care Provider Unavailable Encounter Details Date Type Department Care Team Description 06/09/2015 Hospital Encounter Radiology Library at [facility] [place], [place] [address] Social History Tobacco Use Types Packs/Day [...] Associated Diagnosis Comme nts FILM LIBRARY Routine 06/09/2015 12:00 AM Pain Results for this STORAGE ONLY DX EDT procedure ar e in SPINE the results section. documented in this encounter Results Film Library- Storage only DX Spine (06/09/2015 12:00 AM EDT) Specimen (Source) Anatomical Location Collection Method / Collectio n Time Received Time / Laterality Volume Narrative [facility] - 03/12/2016 4:17 AM EDT This exam is for storage only and is aut o-finalizing. Dr Bettina Cochran Randal FILM LIBRARY ORDERABLES Performing Organization Address City/State/ZIP Code Phon e Number [facility] [place], [place] documented in this encounter Visit Diagnoses Diagnosis Pain Generalized pain documented in this encounter
--- OUTSIDE RECORDS SUMMARY | 2022-11-02 00:56 | XMS_ITS | Encounter Summary ---
:1955 Author Organization [facility] Address [address] [place] [address] Care Team Providers Name Role Phone Don Landon MD Primary Care Provider [phone] Encounter Details Date Type Department Care Team Description 10/10/2019 Lab Requisition [facility] Unknown, Provider, Pathology & Laboratory [facility] [address] [place] [address] [place] [address] Social History Tobacco Use Types Packs/Day Years Used Date Smoking Tobacco: Never Assessed Sex Assigned at Date Recorded Not on file documented as of this encounter Plan of Treatment Not on filedocumented as of this encounter Procedures Procedure Name Priority Date/Time Associated Comments Diagnosis RHEUMATOID FACTOR Routine 10/09/2019 10:20 Result s for this EST procedure are i n the results section. ANTI NUCLEAR AB Routine 10/09/2019 10:20 Results for this (RAZA), IFA EST procedure are i n the results section. documented in this encounter Results RHEUMATOID FACTOR (10/09/2019 10:20 EST) P athologist Signature Rheumatoid <7.5 <12.5 10/12/2019 [facility] Factor IU/mL 11:06 EST CENTER LABORATORY SERVICES Specimen Anatomical Collection Method Collection Time Receive d Time (Source) Location / / Volume Laterality Blood VENOUS BLOOD / 10/09/2019 10:20 9 Unknown EST 15:49 EST Provider Unknown CHEMISTRY & BLOOD GAS ORDERA BLES Performing Organization Address City/State/ZIP Code Phon e Number [facility] [address] [place] [address] SERVICES ANTI NUCLEAR AB (RAZA), IFA (10/09/2019 10:20 EST) [facility] gist Method Time Signature RAZA Interpretation Negative Negative 10/12/2019 [facility] 15:19 [facility] CENTER LABORATORY SERVICES Specimen Anatomical Collection Method Collection Time Receive d Time (Source) Location / / Volume Laterality Blood VENOUS BLOOD / 10/09/2019 10:20 9 Unknown EST 15:49 EST Narrative [facility] - 10/12/2019 15:19 EST Results were obtained with the INOVA NOV A Lite HEp-2 RAZA Kit by indirect immunofluorescence. Provider Unknown IMMUNOLOGY AND SEROLOGY GENA MOCTEZUMA Performing Organization Address City/State/ZIP Code Phon e Number [facility] [address] [place] [address] SERVICES documented in this encounter Visit Diagnoses Not on filedocumented in this encounter Care Teams Child Care Center Assistant Director Relationship Specialty Start Date End Date Don Landon MD PCP - General 03/14/[address] [place], [place] [address] [phone] documented as of this encounter
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
== END ==
PROVIDERS: PCP Nurse Practitioner; Visit Provider Nurse Practitioner Family
DX: M17.12 Unilateral primary osteoarthritis, left knee (principal)
CPT/HCPCS: 73562

== ENCOUNTER 2022-12-13 03:59 | Outpatient (CLI) | payer MEDICARE, MEDICAID, SELFPAY ==
[2022-12-13 09:33] LABS: Bilirubin Negative (Negative); Blood Trace-intact (Negative); Clarity Clear (Clear); Glucose Negative (Negative); Ketones Negative (Negative); Leukocyte Esterase Negative (Negative); Nitrite Negative (Negative); Specific Gravity 1.025 (1.005-1.025); Urobilinogen 0.2 EU/dL (Up TO 0.2)
[2022-12-13 09:39] LABS: WBC Negative HPF (0-5)
[2022-12-13 09:40] LABS: Bacteria Negative HPF (Negative); C & S Indicated? No; Casts Negative LPF (Negative); Crystals Negative HPF (Negative); Epithelial Cells Rare HPF (Negative); Mucus Negative (Negative); RBC 0-2 HPF (0-2)
== END 2022-12-13 04:00 | disposition home or self-care (01) ==
LOC: LBO 03:59
PROVIDERS: PCP Nurse Practitioner; Visit Provider Nurse Practitioner Family
DX: R31.29 Other microscopic hematuria (principal)
CPT/HCPCS: 81003; 81015

== ENCOUNTER 2022-12-17 02:56 | Outpatient (CLI) | payer MEDICARE, MEDICAID, SELFPAY ==
[2022-12-17 07:35] LABS: Abs Immature Grans 0.02 10^3/uL (0.0-0.06); Absolute Basophil Count 0.06 10^3/uL (0.0-0.2); Absolute Eosinophil Count 0.16 10^3/uL (0.0-0.7); Absolute Lymphocyte Count 1.85 10^3/uL (1.2-3.4); Absolute Neutrophil Count 3.97 10^3/uL (1.2-6.7); Basophils % 0.9; Eosinophils % 2.4; HCT 41.2 % (40.0-50.0); HGB 13.8 g/dL (13.5-17.5); Immature Grans % 0.3; Lymphocytes % 27.4; MCH 30.5 pg (27.0-33.0); MCHC 33.5 % (32.0-36.0); MCV 91 fL (80-95); MPV 8.9 fL (8.0-11.0); Monocytes % 10.4; Neutrophils % 58.6; Platelet Count 299 10^3/uL (130-400); RBC 4.53 10^6/uL (4.36-5.78); RDW 12.1 % (11.8-14.1); RDW-SD 40.8 fL; WBC 6.76 10^3/uL (4.4-10.8)
[2022-12-17 08:25] LABS: ALT 26 U/L (16-63); AST 19 U/L (15-37); Albumin 3.9 g/dL (3.4-5.0); Alkaline Phosphatase 66 U/L (46-116); Anion Gap 7.7 mmol/L (3-11); BUN 15 mg/dL (7-18); Bilirubin, Total 0.4 mg/dL (0.2-1.0); CO2 29.3 mmol/L (21.0-32.0); Calcium 8.7 mg/dL (8.5-10.1); Calculated LDL 71 mg/dL (<100); Chloride 103 mmol/L (98-107); Cholesterol 126 mg/dL (<200); Estimated GFR 83.52 (mL/min/1.73m2); Glucose 105 mg/dL (74-106); HDL Cholesterol 45 mg/dL (40-60); Sodium 140 mmol/L (136-145); Triglyceride 50 mg/dL (<150)
== END 2022-12-17 02:57 | disposition home or self-care (01) ==
LOC: LBO 02:56
PROVIDERS: PCP Nurse Practitioner; Visit Provider Nurse Practitioner
DX: E78.5 Hyperlipidemia, unspecified (principal); I10 Essential (primary) hypertension; J45.909 Unspecified asthma, uncomplicated
CPT/HCPCS: 36415; 80053; 80061; 85025

== ENCOUNTER → 2022-12-20 10:00 | Outpatient (BNVA) | payer MEDICARE, MEDICAID, SELFPAY | PROVIDERS: PCP Nurse Practitioner; Referring Provider Nurse Practitioner; Visit Provider Physician Assistant | DX: M75.102 Unspecified rotator cuff tear or rupture of left shoulder, not specified as traumatic (principal); M75.22 Bicipital tendinitis, left shoulder | CPT/HCPCS: 99213 ==

== ENCOUNTER 2023-01-10 01:14 | Outpatient (CLI) | payer MEDICARE, MEDICAID, SELFPAY ==
--- NOTE | 2023-01-10 10:30 | DI.MRI_ITS ---
Exam(s) MR UPPER JOINT LT WO EXAM: MR UPPER JOINT LT WO CLINICAL HISTORY: ? RTC TEAR M25.512 PAIN LT SHOULDER G89.29 CHRONIC PAIN M75.22 BICIPITAL TECHNIQUE: Multiplanar multisequence MRI of the shoulder was performed. COMPARISON: CR XR SHOULDER LT COMPLETE 2+V from 10/02/2022 CR XR KNEE LT 3V AP,LAT,JODIE from 11/02/2022 FINDINGS: MARROW:There is no evidence of fracture, Hill-Sachs deformity, nor ominous osseous lesions. ROTATOR CUFF MECHANISM: AC JOINT/ACROMIUM: Moderate degenerative changes in the AC joint. Mild AC joint widening noted. Thi s may be related to prior decompression surgery.. There is no evidence of os acromiale. Supraspinatus: There is tendinosis signal in the supraspinatus tendon abnormal thickening and signal within the tendon. In addition, there is an area of full-thickness tear in the anterior aspect of th e supraspinatus tendon above the greater tuberosity. AP diameter of the tear is approximately 1 cm. There is mild fluid in the overlying subdeltoid bursa Infraspinatus: Intact. No evidence of tear nor muscle atrophy. Teres Minor: Intact. No evidence of tear nor muscle atrophy. Subscapularis/anterior cuff: Intact. No abnormal signal at the level of the multipennate insertional fibers. No significant tear nor atrophy. BICEPS TENDON: Biceps tendon is not displaced from the intertubercular groove. There is some fluid i n its tendon sheath. Biceps tendon exhibits some signal abnormality within its intra-articular cours e. LABRUM: There is tearing of the superior labrum posterior to the biceps tendon insertion. No obvious tearing of the posterior labrum. No obvious tearing of the anterior labrum. Inferior labrum and in ferior glenohumeral ligament appear intact. GLENOHUMERAL JOINT: Small amount of increased joint fluid which extends down the long head biceps ten don sheath. No loose bodies within the tendon sheath. Minimal cartilage loss. No osteophytes. No degenerative subarticular cysts. IMPRESSION: 1. There is a full-thickness tear of the anterior aspect the supraspinatus tendon, this superimposed upon tendinitis-tendinosis. No high-grade tear of the infraspinatus and subscapularis. 2. Biceps tendon intra-articular aspect exhibits some increased signal and appears somewhat perched u betty the lesser tuberosity. 3. Some tearing is seen in the superior labrum. No evidence of paralabral cyst. 4. small glenohumeral joint effusion. Fluid extends down the long head biceps tendon sheath. There are no loose intra-articular bodies. No osteophytes. DATA REPOSITORY:
== END 2023-01-10 01:34 ==
PROVIDERS: PCP Nurse Practitioner; Visit Provider Student in an Organized Health Care Education/Training Program
DX: G89.29 Other chronic pain (principal); M75.102 Unspecified rotator cuff tear or rupture of left shoulder, not specified as traumatic; M75.22 Bicipital tendinitis, left shoulder; M25.412 Effusion, left shoulder
CPT/HCPCS: 73221

== ENCOUNTER → 2023-02-06 08:21 | Outpatient (BNVA) | payer MEDICARE, MEDICAID, SELFPAY | PROVIDERS: PCP Nurse Practitioner; Referring Provider Nurse Practitioner; Visit Provider Student in an Organized Health Care Education/Training Program | DX: M75.102 Unspecified rotator cuff tear or rupture of left shoulder, not specified as traumatic (principal); M75.22 Bicipital tendinitis, left shoulder; M75.32 Calcific tendinitis of left shoulder | CPT/HCPCS: 99214 ==

== ENCOUNTER 2023-02-21 08:46 | Day surgery (SDC) | payer MEDICARE, MEDICAID, SELFPAY ==
[2023-02-21] VITALS (12 sets, daily range): BP systolic 123–150; BP diastolic 83–98; PULSE 50–66; RESP 15–25; TEMP 36.2–36.8; TEMPC 36.8; O2SAT 94–100; BMI 29.6
--- NOTE | 2023-02-21 07:40 | ROE_ITS ---
Date of service: 02/21/23 Time of Service: 12:30 Operative Note Operative Note DATE OF PROCEDURE: 02/21/23 PRE-OP DIAGNOSIS: Left: 1. Rotator cuff tear 2. LHB tendinopathy 3. Bursitis 4. Calcific tendinitis POST-OP DIAGNOSIS: same PROCEDURE: Left: 1. Rotator cuff repair, CPT# 34170. This involved repair of the supraspinatus using anchors and sutures to reattach the rotator cuff back to the footprint of the greater tuberosity. 2. Arthroscopic biceps tenodesis, CPT# 62328. This involved arthroscopically suturing and reattaching the long head of the biceps tendon to the proximal hum erus at the superior margin of the bicipital groove with a screw at the correct tension. 3. Extensive debridement, CPT# 10893. This involved using arthroscopic hand instruments, power instruments, and radiofrequency instruments to release the long head of the biceps tendon and debride areas of labral tearing, synovitis, chondromalacia of the humeral head working within the glenohumeral joint anter iorly, superiorly and posteriorly as well as significant calcium deposits through the posterior superior rotator cuff. 4. Subacromial decompression with partial acromioplasty, CPT# 98633. This involved using arthroscopic power instruments and a radiofrequency wand to complete a bursectomy and smooth the undersurface of the acromion. The real estate administrative assistant was medically required in order to help assist in techniques above, which require positioning the arm, holding the arthroscope, and manipulating multiple instruments and sutures at the same time. This cannot be done without the help of an experienced real estate administrative assistant. SURGEON: Clark Dietrich VISUAL PRESENTATION MANAGER: Joann Martines ANESTHESIA TYPE: General LMA/ETT and Primary Nerve Block Refer to Anesthesia Record ESTIMATED BLOOD LOSS: 10 PATHOLOGY: none sent COMPLICATIONS: None Patient was transported to: PACU Patient's condition: stable Implants: Arthrex: 4.75mm SwiveLocks x 1 Indications: The patient was diagnosed with the above conditions and appropriately indicated for surgical intervention. Please see complete medical record for details. Findings: Exam under anesthesia: Full range of motion, no instability Glenohumeral joint: Significant labral degeneration, fraying, and partial intra- articular biceps tendon tearing, SLAP tear, small full-thickness anterior supersize rotator cuff tear just adjacent the biceps. Subacromial space: Significant bursitis, significant posterior superior supraspinatus infraspinatus calcium deposits and rotator cuff injection. Moderate rotator cuff diffuse fraying. Full-thickness anterior, somewhat medial chronic?appearing supraspinatus rotator cuff tear. Procedure Description: In the operating room, general anesthesia was induced. Bilateral shoulders were examined. The patient was positioned in the beachchair position. All bony prominences were well-padded. Preoperative antibiotics were administered. The shoulder was prepped and draped in the usual sterile fashion. The correct scott ent, procedure, and side of the procedure were all verified prior to incision. Starting through the posterior portal a standard complete diagnostic arthroscopy was performed of the glenohumeral joint including inspection of the long head of the biceps, anterior and superior labrum, subscapularis tendon, supraspinatus and infraspinatus tendons, and axillary recess. The glenoid and humeral head ca rtilage as well as the posterior labrum were inspected from an anterior viewing portal. Significant findings and interventions noted above. Working through the full-thickness rotator cuff tear, superior anterolateral portal was established and an all-arthroscopic suprapectoral biceps tenodesis was performed using a Loop N Tack method with a SutureTape FiberLink cinched around and through the tendon. The biceps was tenotomized from the labrum and fixated and withdrawn outside the cannula for later repair with the adjacent rotator cuff tear. Starting through the posterior portal, the arthroscope was directed into the subacromial space. A lateral 50 yard line lateral portal was created. A combination of power instruments and a radiofrequency ablator were used to debride bursitis anteriorly, posteriorly, and laterally as well as expose and smooth bone spurring on the undersurface of the acromion. The coracoacromial ligament was partially released. The bursectomy was completed viewing laterally and working from posteriorly and the rotator cuff was thoroughly inspected with findings noted above. Of note, the posterior superior rotator cuff had rather large diffuse superficial calcium deposits that were resected as best possible and debrided and squeezed out of the remaining tendon without creating any significant tendon structural defect. The exposed greater tuberosity footprint was prepared fibrinous and remnant tendon removed, tendon and bone margins optimized for healing. The self retrieving suture passer used to pass a FiberTape inverted horizontal mattress through the supraspinatus tendon at the appropriate level followed by suture tape FiberLink in ripstop configuration. The undersized punch was used to localize suture anchor placement. The repair sutures for the rotator cuff and the biceps tenodesis suture were loaded on the anchor eyelet and tensioned appropriately with the biceps resting at the superior aspect of the adjacent bicipital groove. The rotator cuff repair was structurally strong with good tissue approximation to bone albeit with a small lateral anterior void due to the residual tissue left behind from the tear and resected. The knotless repair suture was then shuttled through the biceps tenodesis biceps tendon stump and secured with a simple knot laying the biceps tendon stump over the exposed greater tuberosity for additional soft tissue coverage throughout. The shoulder was drained of arthroscopic fluid. All portal sites were copiously irrigated. These incisions were closed using 3-0 Monocryl in a buried fashion and then covered with Mastisol, Steri-Strips, Xeroform, dry gauze, and ABDs. The dressings were covered and secured with Medipore tape. The operative extremity was placed into a sling for immobilization. The patient awoke from anesthesia without complication and was transferred to the recovery room in a stable condition.
--- NOTE | 2023-02-21 07:41 | PDOC.DSDIS_ITS ---
Date of service: 02/21/23 Time of Service: 15:30 Discharge Plan Disposition Patient Disposition: Home Discharge Details Attending Provider: Clark Dietrich Primary Care Provider: Christiana Hernandez Home Meds and New Rx's Prescriptions: New aspirin 81 mg tablet,delayed release (DR/EC) 81 mg PO DAILY 7 Days Qty: 7 0RF naproxen 250 mg tablet 250 - 500 mg PO BID PRNQty: 40 0RF Rx Instructions: take with a meal tramadol 50 mg tablet 50 mg PO Q8H PRN (Reason: severe pain) Qty: 12 0RF Continued trazodone 100 mg tablet 150 mg PO QHS PRN (Reason: sleep) Qty: 135 3RF Hold Instructions: Home Medication placed on hold at Doctor's office atorvastatin 40 mg tablet See Rx Instructions .ROUTE .COMPLEX Qty: 90 3RF Dose Instruction: TAKE ONE TABLET BY MOUTH EVERY DAY Rx Instructions: TAKE ONE TABLET BY MOUTH EVERY DAY lisinopril 10 mg tablet See Rx Instructions .ROUTE .COMPLEX Qty: 90 3RF Dose Instruction: TAKE ONE TABLET BY MOUTH EVERY DAY Rx Instructions: TAKE ONE TABLET BY MOUTH EVERY DAY aspirin 81 MG tablet,chewable 81 mg PO DAILY acetaminophen 500 mg capsule 1,000 mg PO Q8H PRN PRNQty: 30 0RF Discontinued naproxen 250 mg tablet 250 mg PO BID PRN (Reason: pain) Qty: 60 2RF oxycodone-acetaminophen 5-325 mg tablet 1 tab PO TID MDD 15mg PRN (Reason: pain) Qty: 9 0RF ibuprofen 200 mg capsule 200 mg PO Q6H PRN ibuprofen 600 mg tablet 600 mg PO TID Qty: 30 0RF Discharge Instructions Additional Instructions: Surgery: Left shoulder arthroscopy with rotator cuff repair (supraspinatus), biceps tenodesis, extensive debridement (including calcific tendinitis), and subacromial decompression.] Activity: For 6 weeks, you should keep your arm at your side in a neutral position at all times except for physical therapy. Do not try to lift or raise your arm using your own muscles. You should use the sling whenever you are out of the house. You may have to adjust the abduction pillow or remove it for comfort. At home it is best to remove the sling and rest the arm on a pillow at your side or support the operative side with your other hand. You may allow the arm to dangle at your side. A physical therapy prescription will be sent electronically to begin in about 3 weeks. STANDARD protocol. Prescriptions: Aspirin 81 mg take 1 daily to prevent a blood clot for 7 days (starting tomorrow) Naproxen 250 mg take 1-2 every 12 hours with a meal as needed for moderate pain Tramadol 50 mg take 1 every 6-8 hours as needed for severe pain You may use [id number] Tylenol (acetaminophen) as needed for mild pain. These pain medications may be taken all at once or in different combinations as needed. Also, recommend Colace (docusate) as a stool softener as surgery and pain medicine cause constipation. You may try eiqe-tsw-noovsfp diphenhydramine (Benadryl) 25-50 mg nightly as a sleep aid Dressings: Remove shoulder bandage after 3 days. Leave the sticky Steri-Strips in place until they fall off or remove them after you shower. Cover the incisio ns with Band-Aids or leave them open to air. You may shower after 5 days. Follow-up: 10-[address] Dietrich You may take off the leg compression stockings this evening at home. You may also leave them on a few days longer if you have a history of leg swelling or edema. Let us know right away if you develop any redness, drainage, fevers, chest pain, or trouble breathing. Do not drink alcohol or drive for at least 24 hours after anesthesia. Please call the office during business hours with any questions or concerns. Discharge Orders Discharge Orders: Discharge Order (Routine); Ordered 02/21/23 Ordered By: Clark Dietrich DS: Diagnosis Discharge Diagnosis (1) Rotator cuff tear, left: Status: Acute
--- NOTE | 2023-02-21 08:56 | W.ANESPRE ---
General Info Date of Service Date Performed: 02/21/23 Height: 5 ft 9.25 in Weight: 91.626 kg Body Mass Index (BMI): 29.6 Surgical Procedure: Operation Date: 02/21/23 10:40 Proposed Procedure Side Surgeon p Shoulder Rotator Cuff Arthroscopic w/ Extensive Debridement, Biceps Tenodesis, Subacromial Decompression Left Clark Dietrich MD Meds Allergies and Home Medications Allergies Allergy/AdvReac Type Severity Reaction Status Date / Time oxycodone AdvReac Intermediate Agitation Verified 02/20/23 10:13 prednisone AdvReac Intermediate Agitation, Verified 02/20/23 10:13 depressed mood clams AdvReac Severe gi Uncoded 02/20/23 10:13 Home Medication Medication Instructions Recorded aspirin 81 mg chewable tablet 81 mg PO DAILY 02/03/13 acetaminophen 500 mg capsule 1,000 mg PO Q8H PRN PRN #30 caps 01/31/22 trazodone 100 mg tablet 150 mg PO QHS PRN sleep #135 tabs 12/19/22 atorvastatin 40 mg tablet See Rx Instructions .Route 02/14/23 .COMPLEX #90 tabs lisinopril 10 mg tablet See Rx Instructions .Route 02/14/23 .COMPLEX #90 tabs aspirin 81 mg tablet,delayed 81 mg PO DAILY prevent blood clot 02/21/23 release 7 days #7 tabs naproxen 250 mg tablet 250 - 500 mg PO BID PRN #40 tabs 02/21/23 tramadol 50 mg tablet 50 mg PO Q8H PRN severe pain #12 02/21/23 tabs Current Visit Medications: Current Medications Generic Name Dose Route Start Last Admin Trade Name Hubertq PRN Reason Stop Dose Admin Ringer's Solution 1,000 mls @ 30 mls/hr 02/21/23 06:00 IV 03/22/23 23:59 INFUSION CIERA Cefazolin Sodium/Dextrose 2 gm in 50 mls @ 100 mls/hr 02/21/23 06:00 Ancef Duplex IVPB 03/22/23 23:59 PREOP CIERA IV Miscellaneous Supplies 1 each 02/21/23 06:00 Iv Access IV 03/22/23 23:59 DIRECTED CIERA Sodium Chloride 0 ml 02/21/23 06:00 Normal Saline Flush 10 Ml Syr IV 03/22/23 23:59 PRN PRN Sodium Chloride 0 ml 02/21/23 06:00 Normal Saline 10 Ml Vial IJ 03/22/23 23:59 DIRECTED PRN Sterile Water 0 ml 02/21/23 06:00 Water,Injection,Sterile 10 Ml Vial IJ 03/22/23 23:59 DIRECTED PRN Tramadol HCl 50 mg 02/21/23 07:39 Tramadol 50 Mg Tab PO Q6H PRN PRN PFSH Active Problems Active Problems: Problem Status Onset Code Calcific tendinitis of left shoulder M75.32 Rotator cuff tear, left M75.102 Chronic left shoulder pain M25.512, G89.29 Left medial knee pain M25.562 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 Tendinitis of long head of biceps brachii of left shoulder M75.22 SARS-CoV-2 positive ~08/18/22 U07.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 Tear of medial meniscus of right knee, current S83.241A Internal derangement of right knee M23.91 Insomnia G47.00 Family history of heart disease Z82.49 GALLEGOS (dyspnea on exertion) R06.00 Bilateral knee pain M25.561, M25.562 Otitis externa H60.90 Routine medical exam Z00.00 Lumbar disc herniation with radiculopathy M51.16 Essential hypertension 05/15/13 I10 Hyperlipidemia 09/26/16 E78.5 Left leg numbness R20.0 Sensorineural hearing loss of both ears H90.3 Low back pain M54.5 Leg weakness R29.898 Medical History Medical History Anxiety reports being stressed financially while raising a family; denies current stressors Depression Diverticulosis GERD (gastroesophageal reflux disease) pt reports resolved HTN (hypertension) Hyperlipemia Osteoarthritis Surgical History Surgical History History of colonoscopy (~12/21/19) 2008- normal RUPTURE EXTENSOR POLLICIS LONGUS TENDON (04/02/12) RIGHT THUMB Status post nasal surgery reports surgery after trauma to his nose Tonsillectomy Trigger Finger release (02/04/13) BILATERAL MIDDLE FINGERS Tobacco Smoking/Tobacco Use Status: Former Tobacco Use Passive smoking exposure: No Alcohol Alcohol Intake: current Alcohol intake frequency: holidays/special occasions only Substance Use Substance use: Occasionally Substance use type: marijuana Vital Signs and Lab Results Vital Signs Most Recent Vital Signs in EMR: Temp Pulse Resp BP Pulse Ox 36.8 C 64 16 150/95 H 99 02/21/23 09:09 02/21/23 09:09 02/21/23 09:09 02/21/23 09:09 02/21/23 09:09 Manually Entered Vital Signs Most Recent Manually Entered Vital Signs: Adult Blood Pressure: 150/95 Heart Rate: 64 Respirations: 16 Oxygen Saturation (%): 99 Temperature (C): 36.8 C Vital Signs Comment Vital Signs Comment:: Temp Pulse Resp BP Pulse Ox 36.8 C 63 15 145/97 H 97 02/21/23 10:51 02/21/23 10:51 02/21/23 10:51 02/21/23 10:51 02/21/23 10:51 Lab Results Blood Type / Crossmatch: No Data to Display Complete Blood Count: No Data to Display Complete Metabolic Panel: No Data to Display Liver Function Panel: No Data to Display Coagulation Panel: No Data to Display Cardiac Panel: No Data to Display Arterial Blood Gas: No Data to Display Venous Blood Gas: No Data to Display Pancreas Panel: No Data to Display Thyroid Panel: No Data to Display Infectious Disease: No Data to Display Blood Cultures: No Data to Display Toxicology Panel: No Data to Display Imaging and Studies Imaging and Studies Study information below may be from another EMR and interpreted by another provider. Please see original notes in EMR for more complete details. Stress Test Summary: 01/2021: 10 METS, no evidence of ischemia on ECG. LVEF 47%, no perfusion defects. Other Study Summary:: Aortic ultrasound normal Anesthesia Assessment and Plan Anesthesia History Personal History: No History of Anesthesia Complications Family History: No Family History of Anesthesia Complications Exercise Tolerance Exercise Tolerance: Metabolic Equivalents>4 Pertinent Negatives Pertinent Negatives: No Major Cardiovascular Symptoms or Complaints and No History of CVA/TIA Cardiac & Pulmonary Exam Cardiac Exam: Normal S1/S2 Heart Sounds Pulmonary Exam: Clear Bilateral Breath Sounds Implantable Cardiac Device Does patient have a Pacemaker or an ICD?: No Airway Exam Known Difficult Airway: No Mallampati Class: 2 Mouth Opening: Normal (> 3cm) Thyromental Distance: Greater than 3 cm Neck Range of Motion: Full ROM Neck Circumference: Thick Teeth Condition: Normal Dentition ASA Classification ASA Score: ASA 2 Emergency Case?: No NPO Status NPO Status: NPO Clears >2 hours, Solids >8 hours Anesthesia Plan Resuscitation Status: Full Code Anesthesia Technique: General Anesthesia Airway Planned: Endotracheal Tube Pain Management: Surgeon and patient request nerve block Monitors Used: Standard Monitors Preoperative Comments:: From past Anesthesia preop: Sig PMHx: GALLEGOS, anxiety, GERD (resolved), HTN (lisinopril), former smoker, occ EtOH.
[2023-02-21] MEDS: Lactated Ringers 1,000 ML 30 ML IV (09:30)
[2023-02-21] MEDS: ceFAZolin 2 GM/50 ML BAG IVPB (11:30)
--- NOTE | 2023-02-21 12:00 | W.ANESNERVE ---
Nerve Block Single Injection Procedure Date and Time Date Performed: 02/21/23 Procedure Start: 10:39 Location Where Procedure Performed Procedure Location: Day Surgery Unit Reason Performed: Postoperative Analgesia Requesting Provider: Clark Dietrich Timeout Performed Timeout Performed: Yes Monitoring Used ECG, Blood Pressure and SpO2 Sterility Sterility: Hand Hygiene, Surgical Cap, Surgical Mask, Sterile Gloves and Chlorhexidine Sedation Given During Procedure Sedation Given (Indicate Dose Given): No Sedation given Patient Mental Status Patient Mental Status: Awake Nerve Block 1st Nerve Block: Laterality: Left Block Type: Interscalene Ultrasound Image Saved?: Yes Needle / Catheter Used: 100mm SonoPlex II Local Anesthetic Bolus (Indicate Dose Given): Lidocaine used for local infiltration of skin, Injected in 3-5ml increments after negative blood aspiration, Bupivacaine 0.5% Dose:: 10 ml and Exparel Dose:: 10 ml Additives (Indicate Dose Given): None Ultrasound: Sterile probe cover and gel used Nerve Stimulator: Supplement to Ultrasound use, Expected parasthesia or motor response elicited and No twitch or parasthesia noted < 0.5 mA Paresthesia: None Post Procedure Pain score (0-10): 1 Procedure Tolerated: No Complications and Patient tolerated well Procedure Outcome: Successful Performed By: Lorenzo Weaver
[2023-02-21] MEDS: EPINEPHrine 30 MG/30 ML VIAL (13:26)
--- NOTE | 2023-02-21 14:50 | W.ANESPOSTOP ---
Postoperative Evaluation Date, Time and Location Date Performed: 02/21/23 Time Performed: 14:50 Patient Location: Day Surgery Unit Vital Signs Most Recent Imported Vital Signs: Most Recent Vital Signs Temp Pulse Resp BP Pulse Ox 36.4 C L 50 L 16 125/83 96 02/21/23 14:28 02/21/23 14:28 02/21/23 14:28 02/21/23 14:28 02/21/23 14:28 Pain Score Most Recent Pain Score: Most Recent Pain Score Pain Level 0 02/21/23 14:28 Assessment Mental Status: Arousable with meaningful communication Airway and Respiratory Function: Patent airway with normal (patient baseline) respiratory exam Cardiovascular Function: Hemodynamically Stable Hydration Status: Adequately Hydrated Nausea & Vomiting: No Nausea or Vomiting Pain: Pt. Denies Any Pain Peripheral Nerve Block: Patient did not receive a nerve block Postoperative Comments:: Patient reports being groggy and ...still out of it. Patient denied questions or concerns, appropriate discussion and able to maintain conversation. Discussed fairly normal course as an older adult having received general anesthesia. Patient appropriate for discharge once he is ready.
== END 2023-02-21 16:05 | disposition home or self-care (01) ==
PROVIDERS: PCP Nurse Practitioner; Visit Provider Student in an Organized Health Care Education/Training Program
PROC: (CPT 29827; principal; 2023-02-21 10:30)
DX: M75.22 Bicipital tendinitis, left shoulder (principal); M75.32 Calcific tendinitis of left shoulder; M75.52 Bursitis of left shoulder
CPT/HCPCS: 29827; 29828; 29826; 29823; 76942; C1781; J0131; J0690; J1100; J2370; J2405; J2704

== ENCOUNTER → 2023-03-05 13:14 | Outpatient (BNVA) | payer MEDICARE, MEDICAID, SELFPAY | PROVIDERS: PCP Nurse Practitioner; Referring Provider Nurse Practitioner; Visit Provider Student in an Organized Health Care Education/Training Program | DX: Z47.89 Encounter for other orthopedic aftercare (principal); M75.22 Bicipital tendinitis, left shoulder ==

== ENCOUNTER → 2023-04-23 07:54 | Outpatient (BNVA) | payer MEDICARE, MEDICAID, SELFPAY | PROVIDERS: PCP Nurse Practitioner; Referring Provider Nurse Practitioner; Visit Provider Student in an Organized Health Care Education/Training Program | DX: M75.32 Calcific tendinitis of left shoulder (principal); M75.102 Unspecified rotator cuff tear or rupture of left shoulder, not specified as traumatic; M75.22 Bicipital tendinitis, left shoulder ==

== ENCOUNTER 2023-05-02 14:09 | Outpatient (REF) | payer MEDICARE, MEDICAID, SELFPAY ==
[2023-05-02 15:42] LABS: Bilirubin Small (Negative); Blood Moderate (Negative); Clarity Cloudy (Clear); Glucose Negative (Negative); Ketones 15 mg/dL (Negative); Leukocyte Esterase Trace (Negative); Nitrite Positive (Negative); Specific Gravity >= 1.030 (1.005-1.025); pH 5.5 (5-8)
[2023-05-02 16:06] LABS: Bacteria Moderate HPF (Negative); C & S Indicated? C&S Done As Ordered; Casts Negative LPF (Negative); Crystals Negative HPF (Negative); Epithelial Cells Rare HPF (Negative); Mucus Moderate (Negative); Other Cells Rare Transitional (Negative); WBC 20-50 HPF (0-5)
[2023-05-03 13:14] LABS: Chlamydia Result Negative (Negative); GC Result Negative (Negative)
== END 2023-05-02 14:10 | disposition home or self-care (01) ==
LOC: LBN 14:09
PROVIDERS: PCP Nurse Practitioner; Referring Provider Family Medicine; Visit Provider Family Medicine
DX: R10.9 Unspecified abdominal pain (principal); N39.0 Urinary tract infection, site not specified; R30.0 Dysuria; R50.9 Fever, unspecified
CPT/HCPCS: 87077; 87491; 87591; 81003; 81015; 87086; 87186

== ENCOUNTER → 2023-07-03 08:21 | Outpatient (BNVA) | payer MEDICARE, MEDICAID, SELFPAY | PROVIDERS: PCP Nurse Practitioner; Visit Provider Student in an Organized Health Care Education/Training Program | DX: M75.102 Unspecified rotator cuff tear or rupture of left shoulder, not specified as traumatic (principal); M75.32 Calcific tendinitis of left shoulder; M75.22 Bicipital tendinitis, left shoulder | CPT/HCPCS: 99213 ==

== ENCOUNTER 2023-08-06 13:59 | Emergency (ER) | payer MEDICARE, SELFPAY ==
[2023-08-06 14:06] VITALS: BP 100/59; PULSE 62; RESP 16; TEMP 36.7; O2SAT 98
--- NOTE | 2023-08-06 14:15 | DI.US_ITS ---
Exam(s) US HERNIA EXAM: US HERNIA CLINICAL HISTORY: swelling to left groin, most pronounced over mons. TECHNIQUE: Ultrasound was performed the area of concern in the left groin region.. COMPARISON: None FINDINGS: This study reveals the presence of a left inguinal hernia sac which measures approximately 3.9 cm x 3 .8 cm x 1.1 cm. Demonstrable with Valsalva technique. IMPRESSION: Left inguinal hernia. DATA REPOSITORY:
--- NOTE | 2023-08-06 15:29 | ED.GENADUL_ITS ---
Discharge Plan Disposition Patient Disposition: Home Condition: Good Discharge Details Chief Complaint: RashLesion Clinical Impression: Inguinal hernia Primary Care Provider: Christiana Hernandez ED Provider: Sofia Le Home Meds and New Rx's Prescriptions: No Action ibuprofen 200 mg tablet 400 mg PO Q6H PRN trazodone 150 mg tablet 150 mg PO QHS PRN (Reason: insomnia) Qty: 90 3RF atorvastatin 40 mg tablet See Rx Instructions .ROUTE .COMPLEX Qty: 90 3RF Dose Instruction: TAKE ONE TABLET BY MOUTH EVERY DAY Rx Instructions: TAKE ONE TABLET BY MOUTH EVERY DAY lisinopril 10 mg tablet See Rx Instructions .ROUTE .COMPLEX Qty: 90 3RF Dose Instruction: TAKE ONE TABLET BY MOUTH EVERY DAY Rx Instructions: TAKE ONE TABLET BY MOUTH EVERY DAY aspirin 81 MG tablet,chewable 81 mg PO DAILY acetaminophen 500 mg capsule 1,000 mg PO Q8H PRN PRNQty: 30 0RF Discharge Instructions Instructions: Inguinal Hernia (ED) Additional Instructions: You will need to followup with general surgery in the office- they will call you to schedule an appointment. Return to the emergency department for new or worsening symptoms including pain, worsening swelling, skin changes in the area, or if you have any other concerns. Referrals: [facility] [Provider Group] Christiana Hernandez, JACKIE [Primary Care Provider] - Medical Decision Making 67yo M with HTN, HLD, presenting with left groin swelling, first noted this afternoon after his dog ran into him this morning. No pain, no testicular symptoms. Vital signs reassuring, on exam he does have swelling to the left groin over the mons pubis, worse with valsalva. Nontender with no overlying skin changes. US as below, left inguinal hernia. Exam not concerning for incarceration or strangulation. Arranged outpatient surgery followup and discharged home. Discharge instructions including return precautions were reviewed with patient who verablized understanding. Alll questions were answered and they are in full agreement with the plan. Imaging Data Radiologic Study: Imaging: Ultrasound Radiologist's impression: IMPRESSION: Left inguinal hernia.? HPI General Mode of arrival: ambulatory . Date/Time Provider Initiated Documentation: 08/06/23 14:14 . Limitations to Documentation: no limitations . Information obtained by: patient . HPI Narrative: 67yo M with HTN, HLD, presenting with left groin swelling. First noted symptoms this afternoon after work; his dog ran into him this morning and he thinks this may have caused it. Area is nontender. No testicular pain. He is otherwise in his usual state of health with no fevers, chills, rash, nausea, vomiting, abdominal pain, groin pain, flank pain, diarrhea, constipation, or other concerns. Related Data Home Medications Medication Instructions Recorded Confirmed aspirin 81 mg chewable tablet 81 mg PO DAILY 02/03/13 08/06/23 acetaminophen 500 mg capsule 1,000 mg PO Q8H PRN PRN #30 caps 01/31/22 08/06/23 atorvastatin 40 mg tablet See Rx Instructions .Route 02/14/23 08/06/23 .COMPLEX #90 tabs lisinopril 10 mg tablet See Rx Instructions .Route 02/14/23 08/06/23 .COMPLEX #90 tabs ibuprofen 200 mg tablet 400 mg PO Q6H PRN 03/20/23 08/06/23 trazodone 150 mg tablet 150 mg PO QHS PRN insomnia #90 tabs 03/20/23 08/06/23 Previous Rx's Medication Instructions Recorded acetaminophen 500 mg capsule 1,000 mg PO Q8H PRN PRN #30 caps 01/31/22 atorvastatin 40 mg tablet See Rx Instructions .Route 02/14/23 .COMPLEX #90 tabs lisinopril 10 mg tablet See Rx Instructions .Route 02/14/23 .COMPLEX #90 tabs trazodone 150 mg tablet 150 mg PO QHS PRN insomnia #90 tabs 03/20/23 Allergies Allergy/AdvReac Type Severity Reaction Status Date / Time oxycodone AdvReac Intermediate Agitation Verified 08/06/23 14:11 prednisone AdvReac Intermediate Agitation, Verified 08/06/23 14:11 depressed mood clams AdvReac Severe gi Uncoded 08/06/23 14:11 General Stated Complaint: RashLesion NAVI: 4 Review of Systems Narrative: see HPI PFSH All Active Problems (Updated 08/06/23 @ 15:38 by Sofia Le MD) Inguinal hernia (Acute) Urinary tract infection (Acute) Calcific tendinitis of left shoulder (Acute) Rotator cuff tear, left (Acute) status post left shoulder arthroscopy with supraspinatus repair, biceps tenodesis, extensive debridement, and subacromial decompression on 02/21/23 Chronic left shoulder pain (Acute) Left medial knee pain (Acute) Arthritis of left wrist (Acute ~09/2022) 09/26/22 Orthopaedics - Dr Reed Tendinitis of long head of biceps brachii of left shoulder (Acute) SARS-CoV-2 positive (Acute ~08/18/22) 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) Tear of medial meniscus of right knee, current (Acute) S/P right knee arthroscopy with partial medial meniscectomy: 02/12/2022 Internal derangement of right knee (Acute) Insomnia (Acute) Family history of heart disease (Acute) GALLEGOS (dyspnea on exertion) (Acute) Bilateral knee pain (Acute) Otitis externa (Acute) Routine medical exam (Acute) Lumbar disc herniation with radiculopathy (Acute) Essential hypertension (Acute 05/15/13) FRS 21% Hyperlipidemia (Acute 09/26/16) CV risk 19% LDL baseline 124 Left leg numbness (Acute) Sensorineural hearing loss of both ears (Chronic) Low back pain (Acute) Leg weakness (Acute) Medical History Anxiety reports being stressed financially while raising a family; denies current stressors Depression Diverticulosis GERD (gastroesophageal reflux disease) pt reports resolved HTN (hypertension) Hyperlipemia Osteoarthritis Surgical History History of colonoscopy (~12/21/19) 2008- normal RUPTURE EXTENSOR POLLICIS LONGUS TENDON (04/02/12) RIGHT THUMB Status post nasal surgery reports surgery after trauma to his nose Tonsillectomy Trigger Finger release (02/04/13) BILATERAL MIDDLE FINGERS Social History Smoking/Tobacco Use Status: Former Tobacco Use Quit Date: 12/02/06 Tobacco: How many years used: 8 Smoking risk assessment performed?: Yes Alcohol Intake: current Alcohol Intake frequency: holidays/special occasions only Alcohol type: beer Drug use: Occasionally Substance use type: marijuana Details: 02/19/23 Household members: spouse and children Number of Children: 5 number of grandchildren: 1 Communication Needs: Hard of Hearing Do you need help understanding health information?: Rarely 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 Pets and animals: Yes Pets and animals: cat(s) and dog(s) Sexually active: Yes Do you think of yourself as: straight/heterosexual Current gender identity: male What is your relationship status?: How often do you talk on the phone with friends or family?: twice per week How often do you get together with friends or relatives?: twice per week How often do you attend temple or church services?: 4 or more times per year Do you belong to any clubs or organized social groups?: no Panel score (0-1 are the most socially isolated patients): 3 What type of physical activity do you participate in: walking and additional Details: active at work, lifting some, walking some Duration: > 90 minutes/day Frequency: daily Leslie/Yazidi: Spiritism Special leslie needs: No Seatbelt use: always Helmet use: No Drive intox or ride w/intox 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 Head: Normocephalic, atraumatic Neck: Trachea midline, Neck supple. Cardiac: No cyanosis. Resp: No respiratory distress. Speaking in full sentences. . Abd: Soft, non-distended, nontender : No suprapubic tenderness. Normal external genitalia. No scrotal swelling. Swelling to left mons pubis, soft, nontender. Extremities: No deformities. No peripheral edema. Neurologic: GCS 15. Moves all extremities freely against gravity Course Vital Signs Vital signs: Vital Signs Temperature 36.7 C 08/06/23 14:06 Pulse 62 08/06/23 14:06 Respiratory Rate 16 08/06/23 14:06 Blood Pressure 100/59 L 08/06/23 14:06 Pulse Oximetry 98 08/06/23 14:06 Temperature 36.7 C 08/06/23 14:06 Temperature Source Temporal Artery Scan 08/06/23 14:06 Pulse 62 08/06/23 14:06 Respiratory Rate 16 08/06/23 14:06 Respiratory Effort Normal 08/06/23 14:10 Blood Pressure 100/59 L 08/06/23 14:06 Blood Pressure Position Sitting 08/06/23 14:06 Pulse Oximetry 98 08/06/23 14:06 Oxygen Delivery Method Room Air 08/06/23 14:06 Oxygen Flow Rate 0 08/06/23 14:06 Pain Level 0 08/06/23 14:06 PAWSS Have you Been Recently Intoxicated or Drunk Within the Last 30 days?: No Have you Ever Experienced Previous Episodes of Alcohol Withdrawal?: No Have you ever Experienced Withdrawal Seizures?: No Have you ever Experienced Delirium Tremens(DT)s?: No Have you ever undergone Alcohol Rehabilitation Treatment (i.e, inpt ot outpatient treatment programs)?: No Have you ever Experienced Blackouts?: No Have you ever Combined Alcohol with other Downers within the last 90 days?: No Have you ever Combined Alcohol with any other Substance of Abuse during the last 90 days?: No Result: 0
--- NOTE | 2023-08-06 16:08 | NUR.NOTE ---
Faxed Surgical Consult request due to Left Inguinal Hernia. Appt should be within 2 weeks Nursing Note:
== END 2023-08-06 15:52 | disposition home or self-care (01) ==
PROVIDERS: Emergency Provider Student in an Organized Health Care Education/Training Program; PCP Nurse Practitioner
DX: K40.90 Unilateral inguinal hernia, without obstruction or gangrene, not specified as recurrent (principal)
CPT/HCPCS: 76857; 99284

== ENCOUNTER → 2023-08-14 14:18 | Outpatient (BNVA) | payer MEDICARE, SELFPAY | PROVIDERS: PCP Nurse Practitioner; Referring Provider Student in an Organized Health Care Education/Training Program; Visit Provider Surgery | DX: K40.90 Unilateral inguinal hernia, without obstruction or gangrene, not specified as recurrent (principal) | CPT/HCPCS: 99213 ==

== ENCOUNTER 2023-08-30 07:50 | Day surgery (SDC) | payer MEDICARE, SELFPAY ==
--- NOTE | 2023-08-29 21:06 | W.PM.DSUDISC ---
Date of service: 08/30/23 Time of Service: 11:07 Discharge Plan Disposition Patient Disposition: Home Condition: Good Discharge Details Reason For Visit: Lft inguinal hernia repair Attending Provider: Luis Patel Primary Care Provider: Christiana Hernandez Home Meds and New Rx's Prescriptions: New tramadol 50 mg tablet 50 mg PO Q8H PRNQty: 12 0RF Rx Instructions: Take 1 tablet by mouth up to every 8 hours if needed for severe pain. Do not drive while using this medication. Continued ibuprofen 200 mg tablet 400 mg PO Q6H PRN trazodone 150 mg tablet 150 mg PO QHS PRN (Reason: insomnia) Qty: 90 3RF atorvastatin 40 mg tablet See Rx Instructions .ROUTE .COMPLEX Qty: 90 3RF Dose Instruction: TAKE ONE TABLET BY MOUTH EVERY DAY Rx Instructions: TAKE ONE TABLET BY MOUTH EVERY DAY lisinopril 10 mg tablet See Rx Instructions .ROUTE .COMPLEX Qty: 90 3RF Dose Instruction: TAKE ONE TABLET BY MOUTH EVERY DAY Rx Instructions: TAKE ONE TABLET BY MOUTH EVERY DAY aspirin 81 MG tablet,chewable 81 mg PO DAILY acetaminophen 500 mg capsule 1,000 mg PO Q8H PRN PRNQty: 30 0RF Discharge Instructions Instructions: Inguinal Hernia Repair (DC) Additional Instructions: Marcell, you did great in the operating room today. We were able to fix your hernia with a mesh like we talked about beforehand. Everything went very smoothly, and I am optimistic you will do great in the weeks to come. Like we talked about beforehand, do not be alarmed if you have some bruising in the area, even if it extends down into your scrotum. This is extremely common. You may also have a little bit more pain over the next few days as the nerve block starts to wear off. I did provide a prescription for some tramadol in case the Tylenol and ibuprofen is not cutting it. If you have any questions in the meantime, please do not hesitate to call at any point. 1. Resume all of your medications. 2. Heating pads and ice packs are fine to use for pain. 3. Okay to use tylenol and ibuprofen over the counter as needed. Use tramadol as needed for pain. 4. Leave bandage in place for 24 hours, then remove. 5. Shower with warm soapy water. Pat dry. Use a bandaid if needed to protect your clothing. 6. No soaking or tub baths until I see you in the office. 7. No heavy lifting until I see you in the office. 8.Call the office (or go directly to the emergency room after hours) if you notice any of the following: Develop chills (warm to touch), or if you have a thermometer and your temperature is above 101 Difficulty breathing or difficultly swallowing Persistent vomiting Any bleeding ? exceeding one tablespoon 6. Call your physician if the site where your intravenous was started becomes red, swollen, painful, and warm to touch. Stand Alone Forms: Anesthesia Discharge InstRed Wang (DSU) Activity:: no heavy lifting Remove Dressings/Wound Care:: 24 hours Shower/Bathe:: 24 hours Discharge Orders Discharge Orders: Discharge Order (Routine); Ordered 08/29/23 Ordered By: Luis Patel DS: Diagnosis Discharge Diagnosis (1) Inguinal hernia: Status: Acute
--- NOTE | 2023-08-29 21:09 | W.PM.OP ---
Date of service: 08/30/23 Time of Service: 11:13 Operative Note Operative Note DATE OF PROCEDURE: 08/30/23 PRE-OP DIAGNOSIS: Left inguinal hernia POST-OP DIAGNOSIS: other (Left inguinal hernia) PROCEDURE: Open left inguinal hernia repair with mesh SURGEON: Luis Patel BILINGUAL MEDICAL ASSISTANT: Kayla Vilchis ANESTHESIA TYPE: General LMA/ETT Refer to Anesthesia Record ESTIMATED BLOOD LOSS: 50 PATHOLOGY: none sent COMPLICATIONS: None Patient was transported to: PACU Patient's condition: stable Implants: Perfect slight extra-large plug and patch Indications: Marcell is a 67-year-old male with a left-sided inguinal hernia. Procedure Description: I began by confirming the correct site with the patient. Next, after induction of general anesthesia a left-sided tap block was performed under ultrasound guidance by their team. The surgical site was then prepped and draped in the usual fashion. I began by making an oblique incision over the left inguinal region. I dissected down through the skin to the deep fascia. Next, I incised the fascia along the length of the inguinal canal to the external ring. I then carefully identified the ilioinguinal nerve and sharply divided it. Once this was complete, I bluntly dissected the shelving edge of the inguinal ligament down towards the pubic tubercle. Here, I encircled all cord structures with a Clarence drain. Next, I began dissecting the specific cord structures. Great care was taken to spare the vas deferens and the blood supply to the testicle. Next, I isolated the hernia sac from the other inguinal structures. I reduced it back to its normal anatomic position. I then used an extra-large PerFix light mesh plug to obliterate the defect at the internal ring. I fixed in place with interrupted Prolene stitches. Next, I buttressed the posterior floor of the inguinal canal with a large mesh patch. I started by fixing it to the pubic tubercle. Next, I used Prolene sutures to affix it to the shelving edge of the inguinal ligament and the conjoined tendon. Laterally I tacked it to the external oblique fascia and reconstructed an internal ring without any strain on the cord structures. Once this was complete, I irrigated the surgical field. It appeared hemostatic. I then closed the anterior portion of the fascia to reconstruct the front wall of the inguinal canal. I did this with interrupted Vicryl stitches. Once again, I irrigated the surgical field and inspected for hemostasis. Finally, I approximated the superficial fascia and the deep layers of the skin with absorbable suture. Skin was closed with running subcuticular stitches. Bandages were applied, the patient was awakened and transferred to the recovery unit.
[2023-08-30] VITALS (12 sets, daily range): BP systolic 112–147; BP diastolic 70–94; PULSE 52–67; RESP 13–19; TEMP 36.4–36.8; O2SAT 98–100; BMI 28.4
[2023-08-30] MEDS: Acetaminophen 500 MG TAB 1000 MG PO (08:15)
[2023-08-30] MEDS: Gabapentin 300 MG CAP 600 MG PO (08:15)
[2023-08-30] MEDS: Celecoxib 200 MG CAP PO (08:15)
[2023-08-30] MEDS: Lactated Ringers 1,000 ML 80 ML IV (08:34)
--- NOTE | 2023-08-30 09:20 | W.ANESPRE ---
General Info Date of Service Date Performed: 08/30/23 Height: 5 ft 10 in Weight: 90 kg Body Mass Index (BMI): 28.4 Surgical Procedure: Operation Date: 08/30/23 09:40 Proposed Procedure Side Surgeon p Herniorrhaphy Inguinal w/Mesh Left Luis Patel MD Meds Allergies and Home Medications Allergies Allergy/AdvReac Type Severity Reaction Status Date / Time oxycodone AdvReac Intermediate Agitation Verified 08/30/23 08:12 prednisone AdvReac Intermediate Agitation, Verified 08/30/23 08:12 depressed mood clams AdvReac Severe gi Uncoded 08/30/23 08:12 Home Medication Medication Instructions Recorded aspirin 81 mg chewable tablet 81 mg PO DAILY 02/03/13 acetaminophen 500 mg capsule 1,000 mg PO Q8H PRN PRN #30 caps 01/31/22 atorvastatin 40 mg tablet See Rx Instructions .Route 02/14/23 .COMPLEX #90 tabs lisinopril 10 mg tablet See Rx Instructions .Route 02/14/23 .COMPLEX #90 tabs ibuprofen 200 mg tablet 400 mg PO Q6H PRN 03/20/23 trazodone 150 mg tablet 150 mg PO QHS PRN insomnia #90 tabs 03/20/23 Current Visit Medications: Current Medications Generic Name Dose Route Start Last Admin Trade Name Freq PRN Reason Stop Dose Admin Acetaminophen 1,000 mg 08/30/23 06:00 08/30/23 08:15 Acetaminophen 500 Mg Tab PO 08/30/23 23:59 1,000 mg PREOP CIERA Administration Celecoxib 200 mg 08/30/23 06:00 08/30/23 08:15 Celecoxib 200 Mg Cap PO 08/30/23 23:59 200 mg PREOP CIERA Administration Gabapentin 600 mg 08/30/23 06:00 08/30/23 08:15 Gabapentin 300 Mg Cap PO 08/30/23 23:59 600 mg PREOP CIERA Administration Ringer's Solution 1,000 mls @ 80 mls/hr 08/30/23 06:00 08/30/23 08:34 IV 08/30/23 23:59 80 mls/hr INFUSION CIERA Administration Cefazolin Sodium/Dextrose 2 gm in 50 mls @ 100 mls/hr 08/30/23 06:00 Ancef Duplex IVPB 08/30/23 23:59 PREOP CIERA IV Miscellaneous Supplies 1 each 08/30/23 06:00 Iv Access IV 08/30/23 23:59 DIRECTED CIERA Morphine Sulfate 2 mg 08/29/23 21:10 Morphine 4 Mg/Ml Syr IVP 09/28/23 21:09 Q1H PRN PRN Sodium Chloride 0 ml 08/30/23 06:00 Normal Saline Flush 10 Ml Syr IV 08/30/23 23:59 PRN PRN Sodium Chloride 0 ml 08/30/23 06:00 Normal Saline 10 Ml Vial IJ 08/30/23 23:59 DIRECTED PRN Sterile Water 0 ml 08/30/23 06:00 Water,Injection,Sterile 10 Ml Vial IJ 08/30/23 23:59 DIRECTED PRN Tramadol HCl 100 mg 08/29/23 21:10 Tramadol 50 Mg Tab PO 09/28/23 21:09 Q6H PRN PRN Pain PFSH Active Problems Active Problems: Problem Status Onset Code Inguinal hernia K40.90 Urinary tract infection N39.0 Calcific tendinitis of left shoulder M75.32 Rotator cuff tear, left M75.102 Chronic left shoulder pain M25.512, G89.29 Left medial knee pain M25.562 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 Tendinitis of long head of biceps brachii of left shoulder M75.22 SARS-CoV-2 positive ~08/18/22 U07.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 Tear of medial meniscus of right knee, current S83.241A Internal derangement of right knee M23.91 Insomnia G47.00 Family history of heart disease Z82.49 GALLEGOS (dyspnea on exertion) R06.00 Bilateral knee pain M25.561, M25.562 Otitis externa H60.90 Routine medical exam Z00.00 Lumbar disc herniation with radiculopathy M51.16 Essential hypertension 05/15/13 I10 Hyperlipidemia 09/26/16 E78.5 Left leg numbness R20.0 Sensorineural hearing loss of both ears H90.3 Low back pain M54.5 Leg weakness R29.898 Medical History Medical History Anxiety reports being stressed financially while raising a family; denies current stressors Depression Diverticulosis GERD (gastroesophageal reflux disease) pt reports resolved HTN (hypertension) Hyperlipemia Osteoarthritis Surgical History Surgical History History of colonoscopy (~12/21/19) 2009- normal RUPTURE EXTENSOR POLLICIS LONGUS TENDON (04/02/12) RIGHT THUMB Status post nasal surgery reports surgery after trauma to his nose Tonsillectomy Trigger Finger release (02/04/13) BILATERAL MIDDLE FINGERS Tobacco Smoking/Tobacco Use Status: Former Tobacco Use Passive smoking exposure: No Alcohol Alcohol Intake: current Alcohol intake frequency: holidays/special occasions only Alcohol type: beer Substance Use Substance use: Occasionally Substance use type: marijuana Details: 02/26/23 Vital Signs and Lab Results Vital Signs Most Recent Vital Signs in EMR: Most Recent Vital Signs Temp Pulse Resp BP Pulse Ox 36.6 C 62 19 125/72 99 08/30/23 08:05 08/30/23 08:05 08/30/23 08:05 08/30/23 08:05 08/30/23 08:05 Lab Results Blood Type / Crossmatch: No Data to Display Complete Blood Count: No Data to Display Complete Metabolic Panel: No Data to Display Liver Function Panel: No Data to Display Coagulation Panel: No Data to Display Cardiac Panel: No Data to Display Arterial Blood Gas: No Data to Display Venous Blood Gas: No Data to Display Pancreas Panel: No Data to Display Thyroid Panel: No Data to Display Infectious Disease: No Data to Display Blood Cultures: No Data to Display Toxicology Panel: No Data to Display Imaging and Studies Imaging and Studies Study information below may be from another EMR and interpreted by another provider. Please see original notes in EMR for more complete details. Stress Test Summary: 01/2021: 10 METS, no evidence of ischemia on ECG. LVEF 47%, no perfusion defects. Other Study Summary:: Aortic ultrasound normal Anesthesia Assessment and Plan Anesthesia History Personal History: No History of Anesthesia Complications Family History: No Family History of Anesthesia Complications Exercise Tolerance Exercise Tolerance: Metabolic Equivalents>4 Pertinent Negatives Pertinent Negatives: No Symptoms of GERD Cardiac & Pulmonary Exam Cardiac Exam: Normal S1/S2 Heart Sounds Pulmonary Exam: Clear Bilateral Breath Sounds Implantable Cardiac Device Does patient have a Pacemaker or an ICD?: No Airway Exam Known Difficult Airway: No Mallampati Class: 2 Mouth Opening: Normal (> 3cm) Thyromental Distance: Greater than 3 cm Neck Range of Motion: Full ROM Neck Circumference: Thick Teeth Condition: Normal Dentition ASA Classification ASA Score: ASA 2 Emergency Case?: No NPO Status NPO Status: NPO Clears >2 hours, Solids >8 hours Anesthesia Plan Resuscitation Status: Full Code Anesthesia Technique: General Anesthesia Airway Planned: LMA Monitors Used: Standard Monitors
[2023-08-30] MEDS: ceFAZolin 2 GM/50 ML BAG IVPB (10:01)
--- NOTE | 2023-08-30 10:30 | W.ANESNERVE ---
Nerve Block Single Injection Procedure Date and Time Date Performed: 08/30/23 Procedure Start: 09:56 Location Where Procedure Performed Procedure Location: Operating Room Procedure Stop: 10:02 Reason Performed: Postoperative Analgesia Requesting Provider: Luis Patel Timeout Performed Timeout Performed: Yes Monitoring Used ECG, Blood Pressure, SpO2, ETCO2 and See EMR for corresponding vital signs Sterility Sterility: Hand Hygiene, Surgical Cap, Surgical Mask, Sterile Gloves, Eye Protection and Chlorhexidine Sedation Given During Procedure Sedation Given (Indicate Dose Given): Other: Medication/Route/Dose:: GA Patient Mental Status Patient Mental Status: Performed under general anesthesia Nerve Block 1st Nerve Block: Laterality: Left Block Type: TAP Unilateral Ultrasound Image Saved?: Yes Needle / Catheter Used: 100mm SonoPlex II Local Anesthetic Bolus (Indicate Dose Given): Bupivacaine 0.25% Dose:: 0.25%/20cc (50mg) and Exparel Dose:: 1.3%/10cc (133mg) Additives (Indicate Dose Given): Epinephrine to make 1:200,000 (5mcg/ml) Dose:: 100mcg Ultrasound: Sterile probe cover and gel used Nerve Stimulator: Not Used Paresthesia: None Procedure Tolerated: No Complications and Patient tolerated well Procedure Outcome: Successful Performed By: Randy Hanson
[2023-08-30] MEDS: Bupivacaine 0.5% Pres-Free 30 ML VIAL (11:00)
--- NOTE | 2023-08-30 12:13 | W.ANESPOSTOP ---
Postoperative Evaluation Date, Time and Location Date Performed: 08/30/23 Time Performed: 12:13 Patient Location: PACU Vital Signs Most Recent Imported Vital Signs: Most Recent Vital Signs Temp Pulse Resp BP Pulse Ox 36.6 C 58 L 16 130/82 100 08/30/23 12:10 08/30/23 12:10 08/30/23 12:10 08/30/23 12:10 08/30/23 12:10 Pain Score Most Recent Pain Score: Most Recent Pain Score Pain Level 0 08/30/23 12:10 Assessment Mental Status: Awake (Alert & Oriented to Patient Baseline) Airway and Respiratory Function: Patent airway with normal (patient baseline) respiratory exam Cardiovascular Function: Hemodynamically Stable Hydration Status: Adequately Hydrated Nausea & Vomiting: No Nausea or Vomiting Pain: Pt. Denies Any Pain Peripheral Nerve Block: Regional nerve block not resolved at time of post operative discharge
== END 2023-08-30 14:08 | disposition home or self-care (01) ==
PROVIDERS: PCP Nurse Practitioner; Visit Provider Surgery
PROC: (CPT 49505; principal; 2023-08-30 09:30)
DX: K40.90 Unilateral inguinal hernia, without obstruction or gangrene, not specified as recurrent (principal); I10 Essential (primary) hypertension; E78.5 Hyperlipidemia, unspecified; F41.9 Anxiety disorder, unspecified; F32.A Depression, unspecified; K57.30 Diverticulosis of large intestine without perforation or abscess without bleeding; K21.9 Gastro-esophageal reflux disease without esophagitis
CPT/HCPCS: 49505; 76942; C1781; J0171; J0690; J1100; J1885; J2250; J2405; J2704

== ENCOUNTER → 2023-09-12 14:46 | Outpatient (BNVA) | payer MEDICARE, SELFPAY | PROVIDERS: PCP Nurse Practitioner; Referring Provider Nurse Practitioner; Visit Provider Surgery | DX: Z48.817 Encounter for surgical aftercare following surgery on the skin and subcutaneous tissue (principal); K40.90 Unilateral inguinal hernia, without obstruction or gangrene, not specified as recurrent ==

== ENCOUNTER 2023-10-23 13:24 | Emergency (ER) | payer MEDICARE, SELFPAY ==
[2023-10-23] VITALS (14 sets, daily range): BP systolic 111–174; BP diastolic 64–95; PULSE 54–64; RESP 18; TEMP 36.9; O2SAT 95–100
--- NOTE | 2023-10-23 13:15 | RT.EKG_ITS ---
APPROVED REPORT Exam: Resting ECG Reason for Exam: Dizziness Patient Location: E HR:53 bpm ECG Measurements Heart Rate 53 AXIS NH 214 P 37 QRSd 78 QRS 22 QT 380 T 25 QTc 358 Conclusion Sinus bradycardia...rate< 60 Borderline prolonged NH interval...NH >212, V-rate 50- 90
--- NOTE | 2023-10-23 13:45 | DI.CT_ITS ---
Exam(s) CT RENAL COLIC WO EXAM: CT RENAL COLIC WO CLINICAL HISTORY: right flank pain. TECHNIQUE: Imaging Protocol: Axial computed tomography images with coronal and sagittal reformatted images were created and reviewed. COMPARISON: No exams were available for comparison FINDINGS: Lung Bases: Normal where visualized. Liver: Normal density. No measurable mass. Gallbladder and biliary tract: No radiodense calculus. No biliary ductal dilation. Pancreas: No abnormal calcifications or inflammatory process. Spleen: Normal size. Kidneys: Normal size, contour and axis.5 millimeter stone in the right ureteropelvic junction causing mild right hydronephrosis. Mild Cristy nephric stranding present. No additional calculi identified. No masses seen. Adrenal glands: No mass is seen. Lymph nodes: Within normal limits. Vasculature: Abdominal aorta non-dilated. Mild atherosclerotic changes. Bladder:Nearly empty. No stone. No gross wall thickening. No evidence of mass. Bowel: No obstruction. No bowel wall thickening. Diverticulosis. Peritoneal cavity: No ascites.No free air. No focal collection. No mesenteric inflammatory response. Reproductive organs: Within normal limits. Bones: Degenerative changes in the spine. Soft Tissues: Within normal limits. IMPRESSION: 5 millimeter stone at the right ureteropelvic junction causing mild hydronephrosis. RADIATION DOSE DELIVERED: Total DLP Total DLP DATA REPOSITORY: All CT scans at this facility are submitted to the National Radiology Data Registry (NRDR) Dose Index Registry (DIR) with the [employer] (ACR). RADIATION OPTIMIZATION: All CT scans at this facility use at least one of these dose optimization te chniques: automated exposure control; mA and/or kV adjustment per patient size (includes targeted exa ms where dose is matched to clinical indication); or iterative reconstruction.
[2023-10-23 14:00] LABS: Abs Immature Grans 0.04 10^3/uL (0.0-0.06); Absolute Basophil Count 0.07 10^3/uL (0.0-0.2); Absolute Eosinophil Count 0.12 10^3/uL (0.0-0.7); Absolute Lymphocyte Count 2.84 10^3/uL (1.2-3.4); Absolute Monocyte Count 1.29 10^3/uL (0.1-0.8); Absolute Neutrophil Count 9.27 10^3/uL (1.2-6.7); Basophils % 0.5; Eosinophils % 0.9; HCT 39.7 % (40.0-50.0); HGB 13.6 g/dL (13.5-17.5); Immature Grans % 0.3; Lymphocytes % 20.8; MCH 30.9 pg (27.0-33.0); MCHC 34.3 % (32.0-36.0); MCV 90 fL (80-95); MPV 9.3 fL (8.0-11.0); Monocytes % 9.5; Platelet Count 341 10^3/uL (130-400); RDW 11.9 % (11.8-14.1); RDW-SD 39.5 fL; WBC 13.63 10^3/uL (4.4-10.8)
[2023-10-23 14:02] LABS: Bilirubin Negative (Negative); Blood Small (Negative); Clarity Clear (Clear); Glucose Negative (Negative); Ketones 15 mg/dL (Negative); Leukocyte Esterase Small (Negative); Nitrite Negative (Negative); Specific Gravity >= 1.030 (1.005-1.025); Urobilinogen 0.2 mg/dL (Up to 0.2)
[2023-10-23 14:12] LABS: Bacteria Moderate HPF (Negative); C & S Indicated? Yes; Casts Negative LPF (Negative); Crystals Negative HPF (Negative); Epithelial Cells Rare HPF (Negative); Mucus Negative (Negative)
[2023-10-23 14:14] LABS: ALT 26 U/L (16-63); AST 17 U/L (15-37); Alkaline Phosphatase 76 U/L (46-116); Anion Gap 6.9 mmol/L (3-11); BUN 18 mg/dL (7-18); Bilirubin, Total 0.3 mg/dL (0.2-1.0); CO2 28.1 mmol/L (21.0-32.0); CREATININE 1.1 mg/dL (0.70-1.30); Calcium 9.4 mg/dL (8.5-10.1); Chloride 103 mmol/L (98-107); Glucose 91 mg/dL (74-106); Lipase 41 U/L (16-77); Potassium 4.1 mmol/L (3.5-5.1); Sodium 138 mmol/L (136-145); Total Protein 8.1 g/dL (6.4-8.2)
[2023-10-23] MEDS: ACETAMINOPHEN 1,000 MG/100 ML BTL 400 MG IVPB (14:35)
[2023-10-23] MEDS: Tamsulosin 0.4 MG CAPCR PO (14:35)
--- NOTE | 2023-10-23 14:38 | ED.GENADUL_ITS ---
Discharge Plan Disposition Patient Disposition: Home Condition: Stable Discharge Details Clinical Impression: Complicated urinary tract infection, Kidney stone Primary Care Provider: Christiana Hernandez ED Provider: Yefri Ocasio Home Meds and New Rx's Prescriptions: New cefpodoxime 200 mg tablet 200 mg PO BID Qty: 19 0RF Rx Instructions: must administer with a meal/food tamsulosin [Flomax] 0.4 mg capsule 0.4 mg PO DAILY Qty: 30 0RF Continued ibuprofen 200 mg tablet 400 mg PO Q6H PRN trazodone 150 mg tablet 150 mg PO QHS PRN (Reason: insomnia) Qty: 90 3RF atorvastatin 40 mg tablet See Rx Instructions .ROUTE .COMPLEX Qty: 90 3RF Dose Instruction: TAKE ONE TABLET BY MOUTH EVERY DAY Rx Instructions: TAKE ONE TABLET BY MOUTH EVERY DAY lisinopril 10 mg tablet See Rx Instructions .ROUTE .COMPLEX Qty: 90 3RF Dose Instruction: TAKE ONE TABLET BY MOUTH EVERY DAY Rx Instructions: TAKE ONE TABLET BY MOUTH EVERY DAY aspirin 81 MG tablet,chewable 81 mg PO DAILY acetaminophen 500 mg capsule 1,000 mg PO Q8H PRN PRNQty: 30 0RF Discharge Instructions Instructions: Kidney Stones (ED), Urinary Tract Infection in Men (ED) Additional Instructions: Please take full course of antibiotic as prescribed. Your initial dose was provided here in the emergency department. Please take your next dose tonight. Please take ibuprofen over the counter. Take 600mg by mouth every 6 hours as needed for pain. Please take Flomax as prescribed. Strain your urine and attempt to collect stone. Please follow-up with Dr. Lugo on Saturday. Call his office at to schedule follow-up appointment for Saturday. Should you have worsening pain, fever or any other concerning symptoms, return to the emergency department immediately. Please follow-up with your primary care physician. Referrals: Christiana Hernandez NP [Primary Care Provider] - Medical Decision Making 1440 --67-year-old male here with severe right flank pain that started suddenly this morning and has been intermittent since onset. Patient was initially pain- free and had return of pain here in the emergency department. Patient received ibuprofen prior to arrival. Acetaminophen IV. 1450 -- CT of the abdomen pelvis was interpreted by radiology: 5 millimeter stone at the right ureteropelvic junction causing mild hydronephrosis. Urinalysis reviewed and the patient has positive leukocyte esterase, 5-10 red blood cells, 10-20 white blood cells, rare epithelial cells and moderate bacteria. Leukocytosis of 13,000 noted. Concern for potential septic stone. I contacted urology and spoke with Ayla Talbot, nurse petitioner, Dr. Wellington is not available today or tomorrow. I will discuss case with [facility]. Plan to initiate treatment with ceftriaxone 1 g IV. --Patient reassessed remains hemodynamically stable. Patient afebrile and not septic appearing. Pain completely resolved. 1640 --I spoke with Dr. Maza, urologist at [facility], discussed ED presentation and course, CT was sent for review. Dr. Kaur recommends outpatient follow-up on Saturday. He recommends patient return to the ER for emergent treatment should he have any worsening conditions. He recommends cefpodoxime twice daily. Plan discussed with the patient. Usual customary and discharge instructions was reviewed. Medical Records Medical records reviewed: Yes I reviewed the patient's medical records. Lab Data Lab results reviewed: Yes I reviewed the patient's lab results. Lab results narrative: Urine culture 05/02/2023 reviewed: E. coli, pansensitive. Urine culture 10/19/22 reviewed: E. coli, pansensitive. Labs: 10/23/23 13:54 Urine - Reflex from Ua Urine Culture - Pending Laboratory Tests Range/Units 10/23/23 13:54 WBC (4.4-10.8) 10^3/uL 13.63 H RBC (4.36-5.78) 10^6/uL 4.40 Hgb (13.5-17.5) g/dL 13.6 Hct (40.0-50.0) % 39.7 L MCV (80-95) fL 90 MCH (27.0-33.0) pg 30.9 MCHC (32.0-36.0) % 34.3 RDW (11.8-14.1) % 11.9 Plt Count (130-400) 10^3/uL 341 MPV (8.0-11.0) fL 9.3 Immature Gran % 0.3 Neutrophils % 68.0 Lymphocytes % 20.8 Monocytes % 9.5 Eosinophils % 0.9 Basophils % 0.5 Nucleated RBC % (0.0-0.3) % 0.0 Absolute Neutrophils (1.2-6.7) 10^3/uL 9.27 H Absolute Lymphocytes (1.2-3.4) 10^3/uL 2.84 Absolute Monocytes (0.1-0.8) 10^3/uL 1.29 H Absolute Eosinophils (0.0-0.7) 10^3/uL 0.12 Absolute Basophils (0.0-0.2) 10^3/uL 0.07 Sodium (136-145) mmol/L 138 Potassium (3.5-5.1) mmol/L 4.1 Chloride (98-107) mmol/L 103 Carbon Dioxide (21.0-32.0) mmol/L 28.1 Anion Gap (3-11) mmol/L 6.9 BUN (7-18) mg/dL 18 Creatinine (0.70-1.30) mg/dL 1.1 Est GFR (CKD-EPI 2020) (mL/min/1.73m2) 74.50 Glucose (74-106) mg/dL 91 Calcium (8.5-10.1) mg/dL 9.4 Total Bilirubin (0.2-1.0) mg/dL 0.3 AST (15-37) U/L 17 ALT (16-63) U/L 26 Alkaline Phosphatase (46-116) U/L 76 Total Protein (6.4-8.2) g/dL 8.1 Albumin (3.4-5.0) g/dL 4.0 Lipase (16-77) U/L 41 Urine Color (Yellow) Yellow Urine Clarity (Clear) Clear Urine pH (5-8) 5.0 Ur Specific [place] (1.005-1.025) >= 1.030 H Urine Protein (Negative) mg/dL Trace H Urine Ketones (Negative) mg/dL 15 H Urine Blood (Negative) Small H Urine Nitrite (Negative) Negative Urine Bilirubin (Negative) Negative Urine Urobilinogen (Up to 0.2) mg/dL 0.2 Ur Leukocyte Esterase (Negative) Small H Urine RBC (0-2) HPF 5-10 H Urine WBC (0-5) HPF 10-20 H Ur Epithelial Cells (Negative) HPF Rare Urine Crystals (Negative) HPF Negative Urine Bacteria (Negative) HPF Moderate Urine Casts (Negative) LPF Negative Urine Mucus (Negative) Negative Ur Culture Indicated? Yes Urine Glucose (Negative) mg/dL Negative HPI General Mode of arrival: ambulatory . Date/Time Provider Initiated Documentation: 10/23/23 13:30 . Limitations to Documentation: no limitations . Information obtained by: patient . HPI Narrative: 67yo male presents with chief complaint of flank pain. Patient notes severe right flank pain that started this morning around 11 AM suddenly. Pain is described as sharp stabbing. Pain resolved and then returned around 1 PM. Patient took ibuprofen. Pain was severe and he had some associated dizziness. No recent dysuria, hematuria, or fever. No abdominal pain. No prior history of renal stones. Related Data Home Medications Medication Instructions Recorded Confirmed aspirin 81 mg chewable tablet 81 mg PO DAILY 02/03/13 10/23/23 acetaminophen 500 mg capsule 1,000 mg (2 x 500 mg) PO Q8H PRN 01/31/22 10/23/23 PRN #30 caps atorvastatin 40 mg tablet See Rx Instructions .Route 02/14/23 10/23/23 .COMPLEX #90 tabs lisinopril 10 mg tablet See Rx Instructions .Route 02/14/23 10/23/23 .COMPLEX #90 tabs ibuprofen 200 mg tablet 400 mg PO Q6H PRN 03/20/23 10/23/23 trazodone 150 mg tablet 150 mg PO QHS PRN insomnia #90 tabs 03/20/23 10/23/23 cefpodoxime 200 mg tablet 200 mg PO BID #19 tabs 10/23/23 tamsulosin 0.4 mg capsule (Flomax) 0.4 mg PO DAILY #30 caps 10/23/23 Previous Rx's Medication Instructions Recorded acetaminophen 500 mg capsule 1,000 mg (2 x 500 mg) PO Q8H PRN 01/31/22 PRN #30 caps atorvastatin 40 mg tablet See Rx Instructions .Route 02/14/23 .COMPLEX #90 tabs lisinopril 10 mg tablet See Rx Instructions .Route 02/14/23 .COMPLEX #90 tabs trazodone 150 mg tablet 150 mg PO QHS PRN insomnia #90 tabs 03/20/23 cefpodoxime 200 mg tablet 200 mg PO BID #19 tabs 10/23/23 tamsulosin 0.4 mg capsule (Flomax) 0.4 mg PO DAILY #30 caps 10/23/23 Allergies Allergy/AdvReac Type Severity Reaction Status Date / Time oxycodone AdvReac Intermediate Agitation Verified 10/23/23 13:34 prednisone AdvReac Intermediate Agitation, Verified 10/23/23 13:34 depressed mood clams AdvReac Severe gi Uncoded 10/23/23 13:34 General Stated Complaint: Abd Prob NAVI: 3 Review of Systems All systems reviewed & are unremarkable except as noted in HPI and below Constitutional Constitutional: Denies fever(s) Gastrointestinal Gastrointestinal: Denies abdominal pain PFSH All Active Problems (Updated 10/23/23 @ 16:35 by Yefri Ocasio MD) Kidney stone (Chronic) Complicated urinary tract infection (Acute) Urinary tract infection (Acute) Calcific tendinitis of left shoulder (Acute) Rotator cuff tear, left (Acute) status post left shoulder arthroscopy with supraspinatus repair, biceps tenodesis, extensive debridement, and subacromial decompression on 02/21/23 Chronic left shoulder pain (Acute) Left medial knee pain (Acute) Arthritis of left wrist (Acute ~09/2022) 09/26/22 Orthopaedics - Dr Reed Tendinitis of long head of biceps brachii of left shoulder (Acute) SARS-CoV-2 positive (Acute ~08/18/22) 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) Tear of medial meniscus of right knee, current (Acute) S/P right knee arthroscopy with partial medial meniscectomy: 02/12/2022 Internal derangement of right knee (Acute) Insomnia (Acute) Family history of heart disease (Acute) GALLEGOS (dyspnea on exertion) (Acute) Bilateral knee pain (Acute) Otitis externa (Acute) Routine medical exam (Acute) Lumbar disc herniation with radiculopathy (Acute) Essential hypertension (Acute 05/15/13) FRS 21% Hyperlipidemia (Acute 09/26/16) CV risk 19% LDL baseline 124 Left leg numbness (Acute) Sensorineural hearing loss of both ears (Chronic) Low back pain (Acute) Leg weakness (Acute) Medical History Diverticulosis Osteoarthritis GERD (gastroesophageal reflux disease) pt reports resolved Anxiety reports being stressed financially while raising a family; denies current stressors Depression HTN (hypertension) Hyperlipemia Surgical History Inguinal hernia of left side without obstruction or gangrene (~08/2023) Status post nasal surgery reports surgery after trauma to his nose History of colonoscopy (~12/21/19) 2009- normal Trigger Finger release (02/04/13) BILATERAL MIDDLE FINGERS Tonsillectomy RUPTURE EXTENSOR POLLICIS LONGUS TENDON (04/02/12) RIGHT THUMB Social History Smoking/Tobacco Use Status: Former Tobacco Use Quit Date: 12/02/06 Tobacco: How many years used: 8 Smoking risk assessment performed?: Yes Alcohol Intake: current Alcohol Intake frequency: holidays/special occasions only Alcohol type: beer Drug use: Occasionally Substance use type: marijuana Details: 09/18/23 occasionally Household members: spouse and children Housing: house Number of Children: 5 number of grandchildren: 1 Communication Needs: Hard of Hearing Do you need help understanding health information?: Rarely 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 Pets and animals: Yes Pets and animals: cat(s) and dog(s) Sexually active: Yes Do you think of yourself as: straight/heterosexual Current gender identity: male What is your relationship status?: How often do you talk on the phone with friends or family?: twice per week How often do you get together with friends or relatives?: twice per week How often do you attend catholic or methodist services?: 4 or more times per year Do you belong to any clubs or organized social groups?: no Panel score (0-1 are the most socially isolated patients): 3 What type of physical activity do you participate in: walking and additional Details: active at work, lifting some, walking some Duration: > 90 minutes/day Frequency: daily Leslie/Anabaptist: Yarsanism Special leslie needs: No Seatbelt use: always Helmet use: No Drive intox or ride w/intox forklift driver: No Working smoke detector in home: Yes Fire extinguisher in home: Yes Carbon monox detector in home: Yes Do you feel safe at home: Yes Do you feel safe in your relationship?: Yes Additional Social history: unable to assess privatley Exam Const General: cooperative and no acute distress HENMT Mouth: moist mucous membranes Neck Neck: trachea midline and supple Resp Auscultation: clear to auscultation bilaterally, no rales, no rhonchi and no wheezes Cardio Rate: regular rate and not tachycardic Rhythm: regular rhythm GI Palpation: soft, not firm, no guarding, no masses, not rigid and nontender Back/Spine/Pelvis Back: no CVA tenderness Skin General skin exam: no rashes or lesions noted Neuro General: patient alert, patient awake and tone normal Extrem General: no edema Course Vital Signs Vital signs: Vital Signs Temperature 36.9 C 10/23/23 13:27 Pulse 60 10/23/23 13:27 Respiratory Rate 18 10/23/23 13:27 Blood Pressure 174/89 H 10/23/23 13:27 Pulse Oximetry 99 10/23/23 13:27 Temperature 36.9 C 10/23/23 13:27 Temperature Source Tympanic 10/23/23 13:27 Pulse 64 10/23/23 14:01 Respiratory Rate 18 10/23/23 13:27 Respiratory Effort Normal 10/23/23 13:31 Blood Pressure 111/64 10/23/23 14:01 Blood Pressure Mean 78 10/23/23 14:01 Blood Pressure Position Supine 10/23/23 13:27 Pulse Oximetry 95 10/23/23 14:02 Oxygen Delivery Method Room Air 10/23/23 13:27 Oxygen Flow Rate 0 10/23/23 13:27 Lab/Test Results Lab/Test Results: 10/23/23 13:54 Urine - Reflex from Ua Urine Culture - Pending Laboratory Tests Range/Units 10/23/23 13:54 WBC (4.4-10.8) 10^3/uL 13.63 H RBC (4.36-5.78) 10^6/uL 4.40 Hgb (13.5-17.5) g/dL 13.6 Hct (40.0-50.0) % 39.7 L MCV (80-95) fL 90 MCH (27.0-33.0) pg 30.9 MCHC (32.0-36.0) % 34.3 RDW (11.8-14.1) % 11.9 Plt Count (130-400) 10^3/uL 341 MPV (8.0-11.0) fL 9.3 Immature Gran % 0.3 Neutrophils % 68.0 Lymphocytes % 20.8 Monocytes % 9.5 Eosinophils % 0.9 Basophils % 0.5 Nucleated RBC % (0.0-0.3) % 0.0 Absolute Neutrophils (1.2-6.7) 10^3/uL 9.27 H Absolute Lymphocytes (1.2-3.4) 10^3/uL 2.84 Absolute Monocytes (0.1-0.8) 10^3/uL 1.29 H Absolute Eosinophils (0.0-0.7) 10^3/uL 0.12 Absolute Basophils (0.0-0.2) 10^3/uL 0.07 Sodium (136-145) mmol/L 138 Potassium (3.5-5.1) mmol/L 4.1 Chloride (98-107) mmol/L 103 Carbon Dioxide (21.0-32.0) mmol/L 28.1 Anion Gap (3-11) mmol/L 6.9 BUN (7-18) mg/dL 18 Creatinine (0.70-1.30) mg/dL 1.1 Est GFR (CKD-EPI 2020) (mL/min/1.73m2) 74.50 Glucose (74-106) mg/dL 91 Calcium (8.5-10.1) mg/dL 9.4 Total Bilirubin (0.2-1.0) mg/dL 0.3 AST (15-37) U/L 17 ALT (16-63) U/L 26 Alkaline Phosphatase (46-116) U/L 76 Total Protein (6.4-8.2) g/dL 8.1 Albumin (3.4-5.0) g/dL 4.0 Lipase (16-77) U/L 41 Urine Color (Yellow) Yellow Urine Clarity (Clear) Clear Urine pH (5-8) 5.0 Ur Specific [place] (1.005-1.025) >= 1.030 H Urine Protein (Negative) mg/dL Trace H Urine Ketones (Negative) mg/dL 15 H Urine Blood (Negative) Small H Urine Nitrite (Negative) Negative Urine Bilirubin (Negative) Negative Urine Urobilinogen (Up to 0.2) mg/dL 0.2 Ur Leukocyte Esterase (Negative) Small H Urine RBC (0-2) HPF 5-10 H Urine WBC (0-5) HPF 10-20 H Ur Epithelial Cells (Negative) HPF Rare Urine Crystals (Negative) HPF Negative Urine Bacteria (Negative) HPF Moderate Urine Casts (Negative) LPF Negative Urine Mucus (Negative) Negative Ur Culture Indicated? Yes Urine Glucose (Negative) mg/dL Negative PAWSS Have you Been Recently Intoxicated or Drunk Within the Last 30 days?: No Have you Ever Experienced Previous Episodes of Alcohol Withdrawal?: No Have you ever Experienced Withdrawal Seizures?: No Have you ever Experienced Delirium Tremens(DT)s?: No Have you ever undergone Alcohol Rehabilitation Treatment (i.e, inpt ot outpatient treatment programs)?: No Have you ever Experienced Blackouts?: No Have you ever Combined Alcohol with other Downers within the last 90 days?: No Have you ever Combined Alcohol with any other Substance of Abuse during the last 90 days?: No Positive Blood Alcohol level on Presentation? [PCS.BAL]: No Evidence of Increased Autonomic Activity (i.e. HR>120, tremor, sweating, agitation, nausea)?: No Result: 0
[2023-10-23] MEDS: cefTRIAXone 1 GM/50 ML BAG IVPB (15:03)
== END 2023-10-23 16:48 | disposition home or self-care (01) ==
PROVIDERS: Emergency Provider Student in an Organized Health Care Education/Training Program; PCP Nurse Practitioner
DX: R10.9 Unspecified abdominal pain (principal); N13.2 Hydronephrosis with renal and ureteral calculous obstruction; N39.0 Urinary tract infection, site not specified; Z79.82 Long term (current) use of aspirin; Z79.899 Other long term (current) drug therapy; Z88.5 Allergy status to narcotic agent; Z88.8 Allergy status to other drugs, medicaments and biological substances; Z91.018 Allergy to other foods; I10 Essential (primary) hypertension; E78.5 Hyperlipidemia, unspecified
CPT/HCPCS: 36415; 80053; 83690; 93005; 99285; 74176; 81003; 81015; 85025; 87086; 93010; J0131; J0696

== ENCOUNTER → 2023-12-13 02:32 | Outpatient (CLI) | payer MEDICARE, SELFPAY ==
--- NOTE | 2023-12-13 07:45 | DI.MRI_ITS ---
Exam(s) MR LUMBAR SPINE WO/W EXAM: MR LUMBAR SPINE WO/W CLINICAL HISTORY: ? 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 TECHNIQUE: Multiplanar multisequence MRI of the Lumbar Spine was performed. CONTRAST MATERIAL: IV Contrast: 18 mL of Dotarem contrast administered. COMPARISON: MR MRI - LUMBAR SPINE WO CONTRAST from 02/28/2016 CT LUMBAR SPINE WITHOUT CONTRAST from 11/17/2016 MR MR LUMBAR SPINE WO from 10/27/[address] RENAL COLIC WO from 10/23/2023 FINDINGS: Bones: The last intervertebral disc space is designated the L5/S1 level for the numbering purpose of this examination. The vertebral body heights are well maintained. Alignment is satisfactory. There a re degenerative endplate signal changes present at multiple levels of the lumbar spine. Cord: The conus tip ends at the L1 level. It is of normal size and signal intensity. T12-L1: No disc herniations or bulges are present. No central spinal canal or neural foraminal stenos is. L1-2: No disc herniations or bulges are present. No central spinal canal or neural foraminal stenosis . L2-3: There is a diffuse disc bulge. Mild narrowing of the central spinal canal is seen. There is m ild left neural foraminal narrowing. No significant right neural foraminal stenosis. L3-4: There is a diffuse disc bulge. There are degenerative changes of the facets and hypertrophy of the ligamentum flavum. These all contribute to cause [id number] central spinal canal stenosis . There is moderate bilateral neural foraminal stenosis right greater than left. L4-5: There is a diffuse disc bulge. There are hypertrophic changes of the facets. No significant c entral spinal canal stenosis is seen. There is marked right and moderately severe left neural forami nal stenosis. L5-S1: There is a diffuse disc bulge. It is asymmetric to the left with herniation extending into th e left neural foramen. There is extrusion with left lateral recess stenosis and compression of the l eft S1 nerve root. There are degenerative changes of the facets present. No central spinal canal or neural foraminal stenosis.There is moderately severe right and marked left neural foraminal stenosis . Soft tissues: The visualized SI joints and sacrum are well maintained. The fat signal intensity lesio n in the right psoas muscle is unchanged dating back to the oldest MRI examination of the lumbar spin e which is 02/28/2016. There is questionable enhancement seen which may be adjacent vasculature. The re is no mass effect. (Series [id number] image 26 compared with series [id number], image 26). IMPRESSION: 1. Left-sided disc herniation at L5-S1 which appears to compress the left S1 nerve root. 2. Multilevel degenerative changes in the lumbar spine resulting in central spinal canal and neural f oraminal stenosis. The findings are most marked from L3-4 through L5-S1. 3. Stable appearance of the fat signal in the right psoas muscle since 2016 without mass effect or de finite enhancement. DATA REPOSITORY:
[2023-12-13] MEDS: Gadoterate meglumine 20 ML SYRINGE 18 ML IVP (13:23)
[2023-12-13] MEDS: Normal Saline Flush 10 ML SYR IJ (13:24)
--- NOTE | 2023-12-13 14:39 | DI.VRAD_ITS ---
PROCEDURE INFORMATION: Exam: MR Lumbar Spine Without and With Contrast Exam date and time: 12/13/2023 1:07 PM Age: 68 years old Clinical indication: Other: Abn CT scan right psoas muscle TECHNIQUE: Imaging protocol: Magnetic resonance imaging of the lumbar spine without and with contrast. Contrast material: DOTAREM; Contrast volume: 18 ml; Contrast route: INTRAVENOUS (IV); COMPARISON: MR LUMBAR SPINE WO 10/27/2019 2:41 PM FINDINGS: Bones/joints: See T11-T12 finding. Spinal cord: Conus terminates normally at L1. T11-T12: T11-12: Bulging disc with underlying osteophyte. Bilateral facet hypertrophy. Mild stenosis. T12-L1: Mildly bulging disc and mild facet hypertrophy. L1-L2: Mildly bulging disc and mild facet hypertrophy. L2-L3: Bulging disc with underlying osteophyte. Bilateral facet and ligamentum flavum hypertrophy. Mild stenosis. Mild bilateral neural foraminal narrowing. L3-L4: Bulging disc with underlying osteophyte. Bilateral facet and ligamentum flavum hypertrophy. Mild stenosis. Moderate bilateral neural foraminal narrowing. L4-L5: Bulging disc with underlying osteophyte. Bilateral facet hypertrophy. Mild stenosis. Moderate bilateral neural foraminal narrowing. L5-S1: Bulging disc with underlying osteophyte. Bilateral facet hypertrophy. Left paracentral extrusion with slight superior migration. There is a component extending laterally producing severe left-sided neural foraminal narrowing. Moderate right-sided neural foraminal narrowing. Soft tissues: Focal fatty lesion with central subtly enhancing component is seen in the right psoas muscle. This has not changed compared to MRIs dating back to 11/19/2018. IMPRESSION: Focal fatty lesion with central subtly enhancing component is seen in the right psoas muscle. This has not changed compared to MRIs dating back to 11/19/2018. Degenerative changes. Mild stenosis at L2-L3, L3-L4, L4-L5 as well as T11-12. Left paracentral extrusion with slight superior migration at L5-S1. This may contact the L5 nerve root. There is also extension into the left neural foramen which produces severe left-sided neural foraminal narrowing. Dictated and Authenticated by: Chaz Sheffield MD. Ordering:JAIRON Villeda MD
== END ==
PROVIDERS: PCP Nurse Practitioner; Visit Provider Nurse Practitioner
DX: M48.062 Spinal stenosis, lumbar region with neurogenic claudication
CPT/HCPCS: 72158

== ENCOUNTER 2024-02-08 16:49 | Observation (INO) | payer MEDICARE, SELFPAY ==
[2024-02-08] VITALS (33 sets, daily range): BP systolic 116–137; BP diastolic 76–89; PULSE 61–91; RESP 13–29; TEMP 36–36.7; O2SAT 96–99
--- NOTE | 2024-02-08 17:00 | RT.EKG_ITS ---
APPROVED REPORT Exam: Resting ECG Reason for Exam: vomiting Patient Location: E HR:70 bpm ECG Measurements Heart Rate 70 AXIS NM 214 P 21 QRSd 79 QRS 12 QT 375 T 44 QTc 404 Conclusion Sinus rhythm...normal P axis, V-rate 60- 99 Borderline prolonged NM interval...NM >212, V-rate 50- 90 Physician: no stemi
--- NOTE | 2024-02-08 17:00 | DI.CT_ITS ---
Exam(s) CT CHEST/ABD/PEL WO EXAM: CT CHEST/ABD/PEL WO CLINICAL HISTORY: vomit, wretching, eval for mediastinal air, obstru TECHNIQUE: Imaging Protocol: Axial computed tomography images with coronal and sagittal reformatted images were created and reviewed COMPARISON: CT CT RENAL COLIC WO from 10/23/2023 FINDINGS: CHEST: Tracheobronchial tree: Patent where visualized. Pulmonary parenchyma: No consolidation or dominant measurable mass. No architectural distortion. Mediastinum and Bridget: No dominant adenopathy or fluid collection. The esophagus is unremarkable. Thyroid gland: Unremarkable. Pleura: No effusion or pneumothorax. Heart: The heart is not dilated. Coronary artery calcifications are present. No pericardial effusion . Aorta: Thoracic aorta non-dilated. Atherosclerotic calcifications are present. Lymph nodes: Within normal limits. Bones:Within normal limits for the patient's age. Soft tissues: Unremarkable. ABDOMEN: Liver: Normal density. No measurable mass. Gallbladder and Biliary Tract: No radiodense calculus or dilation. Pancreas: Normal density, no abnormal calcifications or inflammatory process. Spleen: Normal. Adrenals: No masses seen. Kidneys: Normal size, contour and axis. No radiodense stones or obstructive uropathy. No masses seen. Abdominal Aorta: Abdominal portion non-dilated. Bowel: There is diverticulosis present. There is fluid seen throughout the colon and small bowel whi ch may reflect a diarrheal illness. There is no bowel wall thickening. No evidence of obstruction. There is no pneumatosis. Appendix is unremarkable. Peritoneal Cavity: No ascites, collection or mesenteric inflammatory response. No free air. Lymph Nodes: Within normal limits. Bones: Within normal limits for the patient's age. Soft Tissues: There are findings suggestive of a prior left inguinal hernia repair. PELVIS: Bladder: Symmetric distention, no gross wall thickening. Reproductive Organs: Unremarkable as visualized. Lymph Nodes: Within normal limits. Bones: Within normal limits for the patient's age. IMPRESSION: 1. No acute pulmonary process. 2. There are fluid-filled loops of small and large bowel suspicious for diarrheal illness/enterocolit is. 3. Colonic diverticulosis without evidence of acute diverticulitis. 4. No evidence of pneumoperitoneum. RADIATION DOSE DELIVERED: Total DLP Total DLP DATA REPOSITORY: All CT scans at this facility are submitted to the National Radiology Data Registry (NRDR) Dose Index Registry (DIR) with the [employer] (A[employer]). RADIATION OPTIMIZATION: All CT scans at this facility use at least one of these dose optimization te chniques: automated exposure control; mA and/or kV adjustment per patient size (includes targeted exa ms where dose is matched to clinical indication); or iterative reconstruction.
--- NOTE | 2024-02-08 17:00 | DI.CT_ITS ---
Exam(s) CT HEAD WO EXAM: CT HEAD WO CLINICAL HISTORY: vomiting, dehydrated. TECHNIQUE: Imaging Protocol: Axial computed tomography images with coronal and sagittal reformatted images were created and reviewed COMPARISON: No exams were available for comparison FINDINGS: Ventricles and Extra axial spaces: Normal in size and morphology for the patient's age. Hemorrhage: None. Cerebral parenchyma: No evidence of an acute territorial infarct or mass effect. Midline shift: None. Brainstem/Cerebellum: Normal. Calvarium: Normal. Visualized Paranasal sinuses/Mastoids: There is mucosal thickening in the right maxillary sinus with thickening of the sawant of the sinus consistent with chronic sinusitis. Soft Tissues: Unremarkable. IMPRESSION: No acute intracranial process. RADIATION DOSE DELIVERED: Total DLP DATA REPOSITORY: All CT scans at this facility are submitted to the National Radiology Data Registry (NRDR) Dose Index Registry (DIR) with the [employer] (ACR). RADIATION OPTIMIZATION: All CT scans at this facility use at least one of these dose optimization te chniques: automated exposure control; mA and/or kV adjustment per patient size (includes targeted exa ms where dose is matched to clinical indication); or iterative reconstruction.
--- NOTE | 2024-02-08 17:16 | W.ED.GENAD ---
Discharge Plan Disposition Patient Disposition: Admit to [facility] Condition: Improving Discharge Details Chief Complaint: Abd Prob Clinical Impression: Vomiting and diarrhea, Non-ST elevation NC (NSTEMI) Primary Care Provider: Christiana Hernandez ED Provider: Moshe Silva Home Meds and New Rx's Prescriptions: No Action ibuprofen 200 mg tablet 400 mg PO Q6H PRN atorvastatin 40 mg tablet See Rx Instructions .ROUTE .COMPLEX Qty: 90 3RF Dose Instruction: TAKE ONE TABLET BY MOUTH EVERY DAY Rx Instructions: TAKE ONE TABLET BY MOUTH EVERY DAY lisinopril 10 mg tablet See Rx Instructions .ROUTE .COMPLEX Qty: 90 3RF Dose Instruction: TAKE ONE TABLET BY MOUTH EVERY DAY Rx Instructions: TAKE ONE TABLET BY MOUTH EVERY DAY trazodone 150 mg tablet 150 mg PO QHS PRN (Reason: insomnia) Qty: 90 3RF aspirin 81 MG tablet,chewable 81 mg PO DAILY acetaminophen 500 mg capsule 1,000 mg PO Q8H PRN PRNQty: 30 0RF tamsulosin [Flomax] 0.4 mg capsule 0.4 mg PO DAILY Qty: 30 0RF HPI General Date/Time Provider Initiated Documentation: 02/08/24 17:00. HPI Narrative: 68-year-old male with a past medical history of diverticulosis, GERD, depression, hypertension, high cholesterol, inguinal hernia on the left, previous kidney stones, concern for potential right femoral nerve sheath tumor currently being followed at [facility], presents today for evaluation of vomiting. Patient states that 2 weeks ago he had an episode notable vomiting and diarrhea, it improved on its own but he states that he never regained his appetite since then, then last night he had a notable return of his symptoms with persistent vomiting and retching that cannot be alleviated. He also admits to persistent diarrhea. He denies any new food, or new medications. He denies any blood in his vomit or stool. No foreign travel. No recent antibiotics. No other complaints at this time. Related Data Home Medications Medication Instructions Recorded Confirmed aspirin 81 mg chewable tablet 81 mg PO DAILY 02/03/13 02/08/24 acetaminophen 500 mg capsule 1,000 mg (2 x 500 mg) PO Q8H PRN 01/31/22 02/08/24 PRN #30 caps atorvastatin 40 mg tablet See Rx Instructions .Route 02/14/23 02/08/24 .COMPLEX #90 tabs lisinopril 10 mg tablet See Rx Instructions .Route 02/14/23 02/08/24 .COMPLEX #90 tabs ibuprofen 200 mg tablet 400 mg PO Q6H PRN 03/20/23 02/08/24 tamsulosin 0.4 mg capsule (Flomax) 0.4 mg PO DAILY #30 caps 10/23/23 02/08/24 trazodone 150 mg tablet 150 mg PO QHS PRN insomnia #90 tabs 12/23/23 02/08/24 Previous Rx's Medication Instructions Recorded acetaminophen 500 mg capsule 1,000 mg (2 x 500 mg) PO Q8H PRN 01/31/22 PRN #30 caps atorvastatin 40 mg tablet See Rx Instructions .Route 02/14/23 .COMPLEX #90 tabs lisinopril 10 mg tablet See Rx Instructions .Route 02/14/23 .COMPLEX #90 tabs tamsulosin 0.4 mg capsule (Flomax) 0.4 mg PO DAILY #30 caps 10/23/23 trazodone 150 mg tablet 150 mg PO QHS PRN insomnia #90 tabs 12/23/23 Allergies Allergy/AdvReac Type Severity Reaction Status Date / Time oxycodone AdvReac Intermediate Agitation Verified 02/08/24 17:02 prednisone AdvReac Intermediate Agitation, Verified 02/08/24 17:02 depressed mood clams AdvReac Severe gi Uncoded 02/08/24 17:02 General Stated Complaint: Abd Prob NAVI: 3 Review of Systems All systems reviewed & are unremarkable except as noted in HPI and below Exam Narrative Exam Narrative: 1.Const: Well-nourished, Well-developed, appearing stated age 2.Eyes: PERRL, no conjunctival injection, and symmetrical lids. 3.ENT: Atraumatic external nose and ears. Notably dry MM. Neck: Symmetric, trachea midline, No thyromegaly. 4.CVS: +S1/S2, No murmurs or gallops. Peripheral pulses 2+ and equal in all extremities. Brisk capillary refill in all extremities. 5.RESP: Unlabored respiratory effort. Clear to auscultation bilaterally. No wheezes rales or rhonchi 6.GI: Actively retching. Generalized tenderness throughout the abdomen. 7.MSK: Normocephalic/Atraumatic, Extremities w/o deformity or ttp No cyanosis or clubbing, Normal movement of all extremities 8.Skin: Warm, Dry. No rashes or lesions. 9.Neuro: employment counselor II-XII grossly intact. Sensation grossly intact, no focal neurologic deficits. 10.Psych: (AAO) x3. Appropriate mood and affect Course Vital Signs Vital signs: Vital Signs Temperature 36.0 C L 02/08/24 17:02 Pulse 88 02/08/24 17:02 Respiratory Rate 16 02/08/24 17:02 Pulse Oximetry 98 02/08/24 17:02 Temperature 36.0 C L 02/08/24 17:02 Temperature Source Temporal Artery Scan 02/08/24 17:02 Pulse 88 02/08/24 17:02 Respiratory Rate 16 02/08/24 17:02 Respiratory Effort Normal, Non-Labored 02/08/24 17:05 Blood Pressure Position Sitting 02/08/24 17:02 Pulse Oximetry 98 02/08/24 17:02 Oxygen Delivery Method Room Air 02/08/24 17:02 Oxygen Flow Rate 0 02/08/24 17:02 Pain Level 8 02/08/24 17:02 Medical Decision Making 68-year-old male with a past medical history of diverticulosis, GERD, depression, hypertension, high cholesterol, inguinal hernia on the left, previous kidney stones, concern for potential right femoral nerve sheath tumor currently being followed at [facility], presents today for evaluation of vomiting. Patient states that 2 weeks ago he had an episode notable vomiting and diarrhea, it improved on its own but he states that he never regained his appetite since then, then last night he had a notable return of his symptoms with persistent vomiting and retching that cannot be alleviated. He also admits to persistent diarrhea. He denies any new food, or new medications. He denies any blood in his vomit or stool. No foreign travel. No recent antibiotics. No other complaints at this time. Exam demonstrates nauseous and retching male. Generalized tenderness throughout the abdomen. No subcutaneous crepitus in the chest. No evidence of an incarcerated hernia. Concern for obstruction, gastroenteritis from viral etiology, and dehydration. Will get a CT scan, rehydrate give Zofran, evaluate for cardiac etiologies which appears unlikely, monitor closely and reassess. 6:46 PM Oratory workup has returned, minimal white count at 13, no bandemia. Electrolytes normal, patient's troponin is mildly elevated at 140. EKG shows no evidence of STEMI, no ST elevations or depressions whatsoever. Patient continues to reiterate that he has no chest pain whatsoever. I suspect that the mild bump in troponin is secondary to mild demand ischemia, rather than ACS. His symptoms appear inconsistent with ACS clinically. However with mild bump I do feel that continued serial troponins and overnight observation are indicated. Will reach out to the hospitalist for admission. Symptoms are inconsistent with Jennifer-Bautista tear or Boerhaave's tear. No tachycardia to suggest severe myocarditis. Vomiting is improved and the patient feels well. Discussed the case with the hospitalist, he agrees with the assessment and plan. Patient is given full dose aspirin. He has no chest pain. Will hold on heparinization at this time. No indication for nitro. I have extensively reviewed the treatment plan with the patient. I have addressed all patient concerns at this time. I have also discussed the plan with the admitting physician and they agree with the current assessment and plan and have agreed to assume responsibility for the patient. All parties demonstrate verbal understanding and agreement with our assessment and plan at this time. The documentation in this chart was dictated using [employer] dictation software. Please excuse any dictation errors. Addendum created by Bonita Del Real MD on 02/08/2024 6:34 PM Eastern Time ([place] & [place]): Correction of a typographical error as follows: CT abdomen pelvis new line IMPRESSION: 1. Suspected mild entero colitis. Associated mild small bowel ileus proximally however no mechanical obstruction. 2. Additional findings as described. Initial Report created on 02/08/2024 6:34 PM Eastern Time ([place] & [place]): FINDINGS: Lungs: Scattered microatelectasis. No airspace consolidation. Pleural spaces: No pneumothorax. No pleural effusion. Heart: See Mediastinal space finding. Mediastinal space: No mediastinal gas. Heart size within normal limits. No collections. Lymph nodes: No enlarged lymph nodes. Vasculature: No aortic aneurysm. Bones/joints: Degenerative changes in the spine. No acute fracture or subluxation. Soft tissues: No suspicious lesions. IMPRESSION: No acute findings on noncontrast imaging. FINDINGS: Liver: No hepatic masses on noncontrast imaging. Gallbladder and bile ducts: No calcified stones. No ductal dilation. Pancreas: No gross pathology in the pancreas on noncontrast imaging. Spleen: No splenomegaly or focal lesions. Adrenal glands: No mass. Kidneys and ureters: No hydronephrosis. Stomach and bowel: Colonic diverticulosis without diverticulitis. Fluid throughout colon and rectum. No significant colonic or rectal thickening on noncontrast imaging. Small bowel loops predominantly fluid-filled proximally, proximal loops are mildly dilated again without definite wall thickening on noncontrast imaging and no focal transition point. Appendix: No evidence of appendicitis. Intraperitoneal space: No free air. No significant fluid collection. Vasculature: No abdominal aortic aneurysm. Lymph nodes: No significantly enlarged lymph nodes. Urinary bladder: Unremarkable as visualized. Reproductive: Unremarkable as visualized. Bones/joints: Degenerative changes in the spine. No acute fracture or subluxation. Soft tissues: No suspicious lesions. IMPRESSION: 1. Suspected mild entero colitis. No mechanical obstruction. 2. Additional findings as described. Thank you for allowing us to participate in the care of your patient. FINDINGS: Brain: There is no acute intracranial hemorrhage, mass effect or midline shift. There is no large acute territorial cerebral infarct. Cerebral ventricles: No ventriculomegaly. Paranasal sinuses: There is mucosal thickening in the right maxillary sinus. There is evidence of prior bilateral antrostomy procedures. Mastoid air cells: Visualized mastoid air cells are well aerated. Bones/joints: Unremarkable. No acute fracture. Soft tissues: Unremarkable. IMPRESSION: No acute intracranial hemorrhage, mass effect or midline shift. Thank you for allowing us to participate in the care of your patient. Dictated and Authenticated by: Roopa Voss MD 02/08/2024 6:11 PM Eastern Time ([place] & [place]) Quality:SDOH Health Related Social Needs: No Data to Display PFSH All Active Problems (Updated 02/08/24 @ 21:38 by Moshe Silva DO) Non-ST elevation NC (NSTEMI) (Acute) Vomiting and diarrhea (Acute) Urinary tract infection (Acute) Calcific tendinitis of left shoulder (Acute) Rotator cuff tear, left (Acute) status post left shoulder arthroscopy with supraspinatus repair, biceps tenodesis, extensive debridement, and subacromial decompression on 02/21/23 Chronic left shoulder pain (Acute) Left medial knee pain (Acute) Arthritis of left wrist (Acute ~09/2022) 09/26/22 Orthopaedics - Dr Reed Tendinitis of long head of biceps brachii of left shoulder (Acute) SARS-CoV-2 positive (Acute ~08/18/22) 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) Tear of medial meniscus of right knee, current (Acute) S/P right knee arthroscopy with partial medial meniscectomy: 02/12/2022 Internal derangement of right knee (Acute) Insomnia (Acute) Family history of heart disease (Acute) GALLEGOS (dyspnea on exertion) (Acute) Bilateral knee pain (Acute) Otitis externa (Acute) Routine medical exam (Acute) Lumbar disc herniation with radiculopathy (Acute) Essential hypertension (Acute 05/15/13) FRS 21% Hyperlipidemia (Acute 09/26/16) CV risk 19% LDL baseline 124 Left leg numbness (Acute) Sensorineural hearing loss of both ears (Chronic) Low back pain (Acute) Leg weakness (Acute) Medical History Diverticulosis Osteoarthritis GERD (gastroesophageal reflux disease) pt reports resolved Anxiety reports being stressed financially while raising a family; denies current stressors Depression HTN (hypertension) Hyperlipemia Surgical History Inguinal hernia of left side without obstruction or gangrene (~08/2023) Status post nasal surgery reports surgery after trauma to his nose History of colonoscopy (~12/21/19) 2009- normal Trigger Finger release (02/04/13) BILATERAL MIDDLE FINGERS Tonsillectomy RUPTURE EXTENSOR POLLICIS LONGUS TENDON (04/02/12) RIGHT THUMB Social History Smoking/Tobacco Use Status: Former Tobacco Use Quit Date: 12/02/06 Tobacco: How many years used: 8 Smoking risk assessment performed?: Yes Alcohol Intake: current Alcohol Intake frequency: holidays/special occasions only Alcohol type: beer Drug use: Occasionally Substance use type: marijuana Details: 09/18/23 occasionally Household members: spouse and children Housing: house Number of Children: 5 number of grandchildren: 1 Communication Needs: Hard of Hearing Do you need help understanding health information?: Rarely 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 [employer] Pets and animals: Yes Pets and animals: cat(s) and dog(s) Sexually active: Yes Do you think of yourself as: straight/heterosexual Current gender identity: male What is your relationship status?: How often do you talk on the phone with friends or family?: twice per week How often do you get together with friends or relatives?: twice per week How often do you attend restoration or advent services?: 4 or more times per year Do you belong to any clubs or organized social groups?: no Panel score (0-1 are the most socially isolated patients): 3 What type of physical activity do you participate in: walking and additional Details: active at work, lifting some, walking some Duration: > 90 minutes/day Frequency: daily Leslie/Restoration: Religious Special leslie needs: No Seatbelt use: always Helmet use: No Drive intox or ride w/intox cmv driver: No Working smoke detector in home: Yes Fire extinguisher in home: Yes Carbon monox detector in home: Yes Do you feel safe at home: Yes Do you feel safe in your relationship?: Yes Additional Social history: unable to assess [email or web address]
[2024-02-08] MEDS: Ondansetron 4 MG/2 ML VIAL IVP (17:18)
[2024-02-08] MEDS: Lactated Ringers 1,000 ML 1000 ML IV (17:21)
[2024-02-08 17:26] LABS: Abs Immature Grans 0.04 10^3/uL (0.0-0.06); Absolute Basophil Count 0.05 10^3/uL (0.0-0.2); Absolute Eosinophil Count 0.04 10^3/uL (0.0-0.7); Absolute Lymphocyte Count 2.79 10^3/uL (1.2-3.4); Absolute Monocyte Count 0.95 10^3/uL (0.1-0.8); Absolute Neutrophil Count 9.86 10^3/uL (1.2-6.7); Basophils % 0.4; Eosinophils % 0.3; HCT 45.3 % (40.0-50.0); Immature Grans % 0.3; Lymphocytes % 20.3; MCH 30.9 pg (27.0-33.0); MCHC 35.3 % (32.0-36.0); MCV 88 fL (80-95); MPV 9.4 fL (8.0-11.0); Monocytes % 6.9; Neutrophils % 71.8; Platelet Count 315 10^3/uL (130-400); RBC 5.18 10^6/uL (4.36-5.78); RDW-SD 38.6 fL; WBC 13.73 10^3/uL (4.4-10.8)
[2024-02-08 17:59] LABS: ALT 35 U/L (16-63); AST 19 U/L (15-37); Albumin 4.1 g/dL (3.4-5.0); Alkaline Phosphatase 83 U/L (46-116); Anion Gap 14.7 mmol/L (3-11); BUN 18 mg/dL (7-18); Bilirubin, Total 0.4 mg/dL (0.2-1.0); CO2 24.3 mmol/L (21.0-32.0); CREATININE 1.2 mg/dL (0.70-1.30); Calcium 9.2 mg/dL (8.5-10.1); Chloride 103 mmol/L (98-107); Glucose 104 mg/dL (74-106); Lipase 46 U/L (16-77); Potassium 3.9 mmol/L (3.5-5.1); Sodium 142 mmol/L (136-145); Total Protein 9.2 g/dL (6.4-8.2)
[2024-02-08 18:00] LABS: Troponin I 147 ng/L (< or =60)
--- NOTE | 2024-02-08 18:12 | DI.VRAD_ITS ---
PROCEDURE INFORMATION: Exam: CT Head Without Contrast Exam date and time: 02/08/2024 5:39 PM Age: 68 years old Clinical indication: Patient HX: Vomiting, dehydrated TECHNIQUE: Imaging protocol: Computed tomography of the head without contrast. COMPARISON: No relevant prior studies available. FINDINGS: Brain: There is no acute intracranial hemorrhage, mass effect or midline shift. There is no large acute territorial cerebral infarct. Cerebral ventricles: No ventriculomegaly. Paranasal sinuses: There is mucosal thickening in the right maxillary sinus. There is evidence of prior bilateral antrostomy procedures. Mastoid air cells: Visualized mastoid air cells are well aerated. Bones/joints: Unremarkable. No acute fracture. Soft tissues: Unremarkable. IMPRESSION: No acute intracranial hemorrhage, mass effect or midline shift. Dictated and Authenticated by: Roopa Bah MD. Ordering:JERRY Mesa MD
--- NOTE | 2024-02-08 18:34 | DI.VRAD_ITS ---
Addendum created by Bonita Del Real MD on 02/08/2024 6:34:44 PM EST: Correction of a typographical error as follows: CT abdomen pelvis new line IMPRESSION: 1. Suspected mild entero colitis. Associated mild small bowel ileus proximally however no mechanical obstruction. 2. Additional findings as described. Initial report created on 02/08/2024 6:34:12 PM EST: PROCEDURE INFORMATION: Exam: CT Chest Without Contrast; Diagnostic Exam date and time: 02/08/2024 17:39 Age: 68 years old Clinical indication: Vomiting; Patient HX: Vomit, wretching, eval for mediastinal air, obstru TECHNIQUE: Imaging protocol: Diagnostic computed tomography of the chest without contrast. COMPARISON: CT CHEST WO 03/16/2022 07:56 FINDINGS: Lungs: Scattered microatelectasis. No airspace consolidation. Pleural spaces: No pneumothorax. No pleural effusion. Heart: See Mediastinal space finding. Mediastinal space: No mediastinal gas. Heart size within normal limits. No collections. Lymph nodes: No enlarged lymph nodes. Vasculature: No aortic aneurysm. Bones/joints: Degenerative changes in the spine. No acute fracture or subluxation. Soft tissues: No suspicious lesions. IMPRESSION: No acute findings on noncontrast imaging. PROCEDURE INFORMATION: Exam: CT Abdomen And Pelvis Without Contrast Exam date and time: 02/08/2024 17:39 Age: 68 years old Clinical indication: Vomiting; Patient HX: Vomit, wretching, eval for mediastinal air, obstru TECHNIQUE: Imaging protocol: Computed tomography of the abdomen and pelvis without contrast. COMPARISON: CT RENAL COLIC WO 10/23/2023 14:11 FINDINGS: Liver: No hepatic masses on noncontrast imaging. Gallbladder and bile ducts: No calcified stones. No ductal dilation. Pancreas: No gross pathology in the pancreas on noncontrast imaging. Spleen: No splenomegaly or focal lesions. Adrenal glands: No mass. Kidneys and ureters: No hydronephrosis. Stomach and bowel: Colonic diverticulosis without diverticulitis. Fluid throughout colon and rectum. No significant colonic or rectal thickening on noncontrast imaging. Small bowel loops predominantly fluid-filled proximally, proximal loops are mildly dilated again without definite wall thickening on noncontrast imaging and no focal transition point. Appendix: No evidence of appendicitis. Intraperitoneal space: No free air. No significant fluid collection. Vasculature: No abdominal aortic aneurysm. Lymph nodes: No significantly enlarged lymph nodes. Urinary bladder: Unremarkable as visualized. Reproductive: Unremarkable as visualized. Bones/joints: Degenerative changes in the spine. No acute fracture or subluxation. Soft tissues: No suspicious lesions. IMPRESSION: 1. Suspected mild entero colitis. No mechanical obstruction. 2. Additional findings as described. Dictated and Authenticated by: Bonita Del Real MD. Ordering:JERRY Mesa MD
[2024-02-08] MEDS: Aspirin 81 MG CHEW 324 MG CH (18:48)
[2024-02-08 20:19] LABS: Bilirubin Negative (Negative); Blood Trace-intact (Negative); Clarity Clear (Clear); Glucose Negative (Negative); Ketones 15 mg/dL (Negative); Leukocyte Esterase Negative (Negative); Nitrite Negative (Negative); Specific Gravity >= 1.030 (1.005-1.025); Urobilinogen 0.2 mg/dL (Up to 0.2); pH 5.5 (5-8)
[2024-02-08 20:25] LABS: Bacteria Few HPF (Negative); C & S Indicated? No; Casts 0-2 Hyaline LPF (Negative); Crystals Negative HPF (Negative); Epithelial Cells Few HPF (Negative); Mucus Moderate (Negative); WBC 0-2 HPF (0-5)
[2024-02-08 20:26] LABS: Troponin I 128 ng/L (< or =60)
[2024-02-08 20:56] LABS: C Diff PCR Negative (Negative)
--- NOTE | 2024-02-08 22:03 | HPE_ITS ---
Date of service: 02/08/24 Time of Service: 22:03 Assessment and Plan Assessment and plan (1) Enterocolitis: Status: Acute Assessment and plan: Most likely viral etiology but in view of recent antibiotic use we will check stool for C. difficile. Continue supportive care including IV fluids and antiemetics. Does appear slightly volume depleted based on hemoconcentration and ketonuria as well as concentrated urine and so far tolerating volume replacement. (2) Elevated troponin: Status: Acute Assessment and plan: No chest pain or EKG changes, not consistent with ACS and could represent underlying coronary artery disease and physiologic stress. Requested echocardiogram and will repeat troponin in the morning. At this point no indication for aspirin, beta-yony, anticoagulation and will monitor for dysrhythmia on telemetry. Holding lisinopril tonight given volume depletion and potential for hypotension and may be explanation for chronic dry cough as well. History of Present Illness History of Present Illness Chief Complaint: Vomiting Narrative: This 68-year-old male reports poor oral intake over the past 2 weeks associated with 15 pound weight loss. Has had constant nausea with nonbloody emesis, also frequent loose stool without abdominal cramping or fever. Has been on multiple courses of antibiotics for urinary tract infections. No recent travel or suspicious water exposure. No chest pain, shortness of breath, lightheadedness or dizziness. Slightly increased thirst noted. Is up-to-date with surveillance colonoscopy with no concerning findings per patient and family. No sick contacts. No history of vascular disease. Only other complaint is a chronic nonproductive cough for the past year which is worsened somewhat over the past 2 weeks. No dyspnea. Review of Systems All systems reviewed & are unremarkable except as noted in HPI and below PFSH All Active Problems (Updated 02/08/24 @ 22:27 by Reji Barragan MD) Elevated troponin (Acute) Enterocolitis (Acute) Non-ST elevation [place] (NSTEMI) (Acute) Vomiting and diarrhea (Acute) Urinary tract infection (Acute) Calcific tendinitis of left shoulder (Acute) Rotator cuff tear, left (Acute) status post left shoulder arthroscopy with supraspinatus repair, biceps tenodesis, extensive debridement, and subacromial decompression on 02/21/23 Chronic left shoulder pain (Acute) Left medial knee pain (Acute) Arthritis of left wrist (Acute ~09/2022) 09/26/22 Orthopaedics - Dr Reed Tendinitis of long head of biceps brachii of left shoulder (Acute) SARS-CoV-2 positive (Acute ~08/18/22) 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) Tear of medial meniscus of right knee, current (Acute) S/P right knee arthroscopy with partial medial meniscectomy: 02/12/2022 Internal derangement of right knee (Acute) Insomnia (Acute) Family history of heart disease (Acute) GALLEGOS (dyspnea on exertion) (Acute) Bilateral knee pain (Acute) Otitis externa (Acute) Routine medical exam (Acute) Lumbar disc herniation with radiculopathy (Acute) Essential hypertension (Acute 05/15/13) FRS 21% Hyperlipidemia (Acute 09/26/16) CV risk 19% LDL baseline 124 Left leg numbness (Acute) Sensorineural hearing loss of both ears (Chronic) Low back pain (Acute) Leg weakness (Acute) Medical History Diverticulosis Osteoarthritis GERD (gastroesophageal reflux disease) pt reports resolved Anxiety reports being stressed financially while raising a family; denies current stressors Depression HTN (hypertension) Hyperlipemia Surgical History Inguinal hernia of left side without obstruction or gangrene (~08/2023) Status post nasal surgery reports surgery after trauma to his nose History of colonoscopy (~12/21/19) 2009- normal Trigger Finger release (02/04/13) BILATERAL MIDDLE FINGERS Tonsillectomy RUPTURE EXTENSOR POLLICIS LONGUS TENDON (04/02/12) RIGHT THUMB Social History Smoking/Tobacco Use Status: Former Tobacco Use Quit Date: 12/02/06 Tobacco: How many years used: 8 Smoking risk assessment performed?: Yes Alcohol Intake: current Alcohol Intake frequency: holidays/special occasions only Alcohol type: beer Drug use: Occasionally Substance use type: marijuana Details: 09/18/23 occasionally Household members: spouse and children Housing: house Number of Children: 5 number of grandchildren: 1 Communication Needs: Hard of Hearing Do you need help understanding health information?: Rarely 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 Pets and animals: Yes Pets and animals: cat(s) and dog(s) Sexually active: Yes Do you think of yourself as: straight/heterosexual Current gender identity: male What is your relationship status?: How often do you talk on the phone with friends or family?: twice per week How often do you get together with friends or relatives?: twice per week How often do you attend mosque or temple services?: 4 or more times per year Do you belong to any clubs or organized social groups?: no Panel score (0-1 are the most socially isolated patients): 3 What type of physical activity do you participate in: walking and additional Details: active at work, lifting some, walking some Duration: > 90 minutes/day Frequency: daily Leslie/Scientology: Latter-Day Special leslie needs: No Seatbelt use: always Helmet use: No Drive intox or ride w/intox commercial driver: No Working smoke detector in home: Yes Fire extinguisher in home: Yes Carbon monox detector in home: Yes Do you feel safe at home: Yes Do you feel safe in your relationship?: Yes Additional Social history: unable to assess [facility] Allergies and Home Medications Allergies Allergy/AdvReac Type Severity Reaction Status Date / Time oxycodone AdvReac Intermediate Agitation Verified 02/08/24 17:02 prednisone AdvReac Intermediate Agitation, Verified 02/08/24 17:02 depressed mood clams AdvReac Severe gi Uncoded 02/08/24 17:02 Home Medications Medication Instructions Recorded Confirmed Type aspirin 81 mg chewable tablet 81 mg PO DAILY 02/03/13 02/08/24 History acetaminophen 500 mg capsule 1,000 mg (2 x 500 mg) PO Q8H PRN 01/31/22 02/08/24 Rx PRN #30 caps atorvastatin 40 mg tablet See Rx Instructions .Route 02/14/23 02/08/24 Rx .COMPLEX #90 tabs lisinopril 10 mg tablet See Rx Instructions .Route 02/14/23 02/08/24 Rx .COMPLEX #90 tabs ibuprofen 200 mg tablet 400 mg PO Q6H PRN 03/20/23 02/08/24 History tamsulosin 0.4 mg capsule (Flomax) 0.4 mg PO DAILY #30 caps 10/23/23 02/08/24 Rx trazodone 150 mg tablet 150 mg PO QHS PRN insomnia #90 tabs 12/23/23 02/08/24 Rx Exam Narrative Exam Narrative: General pleasant male, no acute distress HEENT pupils equal round and reactive, no conjunctival pallor or scleral icterus, oral mucosa moist Neck supple, no lymphadenopathy or thyromegaly, carotid pulses normal and symmetric without bruits CV regular, no murmur or gallop, no JVD Lungs clear, no crackles or wheezes Abdomen soft, nontender, bowel sounds normal, no organomegaly or masses Extremities no peripheral edema, distal pulses normal and symmetric Skin no rash, normal turgor Joints no active inflammation Neurologic strength and sensation normal and symmetric, no tremor Results Imaging Additional studies: Hemoglobin 16 from baseline 13-14, possibly reflecting mild hemoconcentration White count elevated at 13.7 Troponins [address] chest/abdomen/pelvis which showed dilated fluid-filled loops of small and large bowel Reviewed EKG which shows normal sinus rhythm, no ST segment or T wave abnormalities, Labs 02/08/24 17:16 02/08/24 17:16 Labs: Laboratory Results - last 24 hr 02/08/24 02/08/24 02/08/24 17:14 17:16 19:48 WBC 13.73 H RBC 5.18 Hgb 16.0 Hct 45.3 MCV 88 MCH 30.9 MCHC 35.3 RDW 12.0 Plt Count 315 MPV 9.4 Immature Gran % 0.3 Neutrophils % 71.8 Lymphocytes % 20.3 Monocytes % 6.9 Eosinophils % 0.3 Basophils % 0.4 Nucleated RBC % 0.0 Absolute Neutrophils 9.86 H Absolute Lymphocytes 2.79 Absolute Monocytes 0.95 H Absolute Eosinophils 0.04 Absolute Basophils 0.05 Sodium 142 Potassium 3.9 Chloride 103 Carbon Dioxide 24.3 Anion Gap 14.7 H BUN 18 Creatinine 1.2 Est GFR (CKD-EPI 2020) 66.70 Glucose 104 Calcium 9.2 Total Bilirubin 0.4 AST 19 ALT 35 Alkaline Phosphatase 83 Troponin I Cancelled 147 H* Total Protein 9.2 H Albumin 4.1 Lipase 46 Urine Color Yellow Urine Clarity Clear Urine pH 5.5 Ur Specific [place] >= 1.030 H Urine Protein 30 H Urine Ketones 15 H Urine Blood Trace-intact H Urine Nitrite Negative Urine Bilirubin Negative Urine Urobilinogen 0.2 Ur Leukocyte Esterase Negative Urine RBC 3-5 H Urine WBC 0-2 Ur Epithelial Cells Few Urine Crystals Negative Urine Bacteria Few Urine Casts 0-2 Hyaline Urine Mucus Moderate Ur Culture Indicated? No Urine Glucose Negative Stl C.difficile Tox PCR 02/08/24 02/08/24 19:55 20:00 WBC RBC Hgb Hct MCV MCH MCHC RDW Plt Count MPV Immature Gran % Neutrophils % Lymphocytes % Monocytes % Eosinophils % Basophils % Nucleated RBC % Absolute Neutrophils Absolute Lymphocytes Absolute Monocytes Absolute Eosinophils Absolute Basophils Sodium Potassium Chloride Carbon Dioxide Anion Gap BUN Creatinine Est GFR (CKD-EPI 2020) Glucose Calcium Total Bilirubin AST ALT Alkaline Phosphatase Troponin I 128 H* Total Protein Albumin Lipase Urine Color Urine Clarity Urine pH Ur Specific [place] Urine Protein Urine Ketones Urine Blood Urine Nitrite Urine Bilirubin Urine Urobilinogen Ur Leukocyte Esterase Urine RBC Urine WBC Ur Epithelial Cells Urine Crystals Urine Bacteria Urine Casts Urine Mucus Ur Culture Indicated? Urine Glucose Stl C.difficile Tox PCR Negative Last Vital Signs Temp 36.0 C L 02/08/24 17:02 Pulse 78 02/08/24 21:31 Resp 22 02/08/24 21:31 BP 137/77 02/08/24 21:31 Pulse Ox 96 02/08/24 21:31 Time Spent Time spent with Patient: 40-54 minutes Time was spent: obtaining and/or reviewing separately otained hiistory, ordering medications,tests, procedures, counseling the patient and care coordination
[2024-02-08] MEDS: Lactated Ringers 1,000 ML 100 ML IV (23:30)
[2024-02-08] MEDS: Enoxaparin 40 MG/0.4 ML SYR SC (23:30)
[2024-02-09 04:21] VITALS: BP 104/63; PULSE 55; RESP 18; TEMP 37.1; O2SAT 100
[2024-02-09 06:36] LABS: Abs Immature Grans 0.01 10^3/uL (0.0-0.06); Absolute Basophil Count 0.02 10^3/uL (0.0-0.2); Absolute Eosinophil Count 0.07 10^3/uL (0.0-0.7); Absolute Lymphocyte Count 1.89 10^3/uL (1.2-3.4); Absolute Monocyte Count 0.79 10^3/uL (0.1-0.8); Absolute Neutrophil Count 3.42 10^3/uL (1.2-6.7); Basophils % 0.3; Eosinophils % 1.1; HCT 35.9 % (40.0-50.0); HGB 12.6 g/dL (13.5-17.5); Immature Grans % 0.2; Lymphocytes % 30.5; MCH 31.1 pg (27.0-33.0); MCHC 35.1 % (32.0-36.0); MCV 89 fL (80-95); MPV 9.7 fL (8.0-11.0); Monocytes % 12.7; Neutrophils % 55.2; Platelet Count 246 10^3/uL (130-400); RBC 4.05 10^6/uL (4.36-5.78); RDW 12.1 % (11.8-14.1); RDW-SD 39.7 fL
[2024-02-09 06:54] LABS: Anion Gap 10.1 mmol/L (3-11); BUN 16 mg/dL (7-18); CO2 25.9 mmol/L (21.0-32.0); CREATININE 0.8 mg/dL (0.70-1.30); Calcium 8.3 mg/dL (8.5-10.1); Chloride 105 mmol/L (98-107); Estimated GFR 97.61 (mL/min/1.73m2); Glucose 92 mg/dL (74-106); Magnesium 1.9 mg/dL (1.8-2.4); Potassium 3.8 mmol/L (3.5-5.1); Sodium 141 mmol/L (136-145)
[2024-02-09 07:05] LABS: Troponin I 121 ng/L (< or =60)
[2024-02-09 09:31] VITALS: BP 139/86; PULSE 67; RESP 18; TEMP 36.4; O2SAT 99
[2024-02-09] MEDS: Atorvastatin 40 MG TAB PO (09:34)
[2024-02-09] MEDS: Lisinopril 10 MG TAB PO (09:34)
--- NOTE | 2024-02-09 09:47 | INITIAL_ITS ---
Date of service: 02/09/24 Time of Service: 09:47 Care Management Initial Assmt Initial Assessment REASON FOR HOSPITALIZATION:: enterocolitis PREVIOUS FUNCTIONAL STATUS/SOCIAL/FAMILY SUPPORTS:: Marcell lives in [place], [place] with his Leela. They have 5 children, 4 boys and a girl. They have 2 sons who live in the [facility], 1 who lives in [place] and their daughter lives in [place] and works as a nurse at [employer]. Their other son lives in an apartment on their property. 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 He is independent at baseline and does not receive any community services. CURRENT FUNCTIONAL STATUS:: Marcell was sitting up in bed when CM met with him. He stated that he is feeling much better than he has for the past 2 weeks. He had been vomiting and has had diarrhea for most of that time with a reported 15 pound weight loss. He has not had any stools since he was in the ED last night and is tolerating a liquid diet. he will be discharged later today. ADVANCE DIRECTIVES:: none on file Has patient been provided with info about the portal/API?: Yes Did the patient sign up for the portal?: No CODE STATUS:: Full Code INSURANCE COVERAGE / FINANCIAL ISSUES:: [employer] CURRENT HOME/COMMUNITY SERVICES/EQUIPMENT:: none PRIMARY CARE PHYSICIAN:: Christiana Hernandez POTENTIAL DISCHARGE NEEDS:: follow up with PCP and plan of care PATIENT/FAMILY EDUCATION NEEDS:: Review of discharge instructions, activity, limitations, follow up plan, discuss [employer] TRANSPORTATION:: via private vehicle with family PLAN:: Marcell will be discharged home with no new services. He will follow up with his PCP and plan of care and transport with family. CM will follow and support discharge planning needs. PFSH All Active Problems (Updated 02/08/24 @ 22:27 by Reji Barragan MD) Elevated troponin (Acute) Enterocolitis (Acute) Non-ST elevation [place] (NSTEMI) (Acute) Vomiting and diarrhea (Acute) Urinary tract infection (Acute) Calcific tendinitis of left shoulder (Acute) Rotator cuff tear, left (Acute) status post left shoulder arthroscopy with supraspinatus repair, biceps tenodesis, extensive debridement, and subacromial decompression on 02/21/23 Chronic left shoulder pain (Acute) Left medial knee pain (Acute) Arthritis of left wrist (Acute ~09/2022) 09/26/22 Orthopaedics - Dr Reed Tendinitis of long head of biceps brachii of left shoulder (Acute) SARS-CoV-2 positive (Acute ~08/18/22) 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) Tear of medial meniscus of right knee, current (Acute) S/P right knee arthroscopy with partial medial meniscectomy: 02/12/2022 Internal derangement of right knee (Acute) Insomnia (Acute) Family history of heart disease (Acute) GALLEGOS (dyspnea on exertion) (Acute) Bilateral knee pain (Acute) Otitis externa (Acute) Routine medical exam (Acute) Lumbar disc herniation with radiculopathy (Acute) Essential hypertension (Acute 05/15/13) FRS 21% Hyperlipidemia (Acute 09/26/16) CV risk 19% LDL baseline 124 Left leg numbness (Acute) Sensorineural hearing loss of both ears (Chronic) Low back pain (Acute) Leg weakness (Acute) Medical History Diverticulosis Osteoarthritis GERD (gastroesophageal reflux disease) pt reports resolved Anxiety reports being stressed financially while raising a family; denies current stressors Depression HTN (hypertension) Hyperlipemia Surgical History Inguinal hernia of left side without obstruction or gangrene (~08/2023) Status post nasal surgery reports surgery after trauma to his nose History of colonoscopy (~12/21/19) 2008- normal Trigger Finger release (02/04/13) BILATERAL MIDDLE FINGERS Tonsillectomy RUPTURE EXTENSOR POLLICIS LONGUS TENDON (04/02/12) RIGHT THUMB Social History Smoking/Tobacco Use Status: Former Tobacco Use Quit Date: 12/02/06 Tobacco: How many years used: 8 Smoking risk assessment performed?: Yes Alcohol Intake: current Alcohol Intake frequency: holidays/special occasions only Alcohol type: beer Drug use: Occasionally Substance use type: marijuana Details: 09/18/23 occasionally Household members: spouse and children Housing: house Number of Children: 5 number of grandchildren: 1 Communication Needs: Hard of Hearing Do you need help understanding health information?: Rarely 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 Pets and animals: Yes Pets and animals: cat(s) and dog(s) Sexually active: Yes Do you think of yourself as: straight/heterosexual Current gender identity: male What is your relationship status?: How often do you talk on the phone with friends or family?: twice per week How often do you get together with friends or relatives?: twice per week How often do you attend yazidism or religion services?: 4 or more times per year Do you belong to any clubs or organized social groups?: no Panel score (0-1 are the most socially isolated patients): 3 What type of physical activity do you participate in: walking and additional Details: active at work, lifting some, walking some Duration: > 90 minutes/day Frequency: daily Leslie/Buddhism: Orthodoxy Special leslie needs: No Seatbelt use: always Helmet use: No Drive intox or ride w/intox milk truck driver: No Working smoke detector in home: Yes Fire extinguisher in home: Yes Carbon monox detector in home: Yes Do you feel safe at home: Yes Do you feel safe in your relationship?: Yes Additional Social history: unable to assess [facility] Will the Patient Participate in the Screening?: Yes Do you worry about having a steady place to live?: no Problems where you live: no known problems In the past 12 months, have you had to go without electric, gas, oil or water in your home?: no Have you or anyone in your house had to go without enough food to eat?: no Has lack of transportation kept you from medical appointments or from doing things needed for daily living?: no Has anyone in your support network made you feel unsafe for any reason?: no
--- NOTE | 2024-02-09 10:27 | PHA.REVIEW2 ---
Pharmacy Admission Review Admission Clinical Review Admission Pharmacy Review: Elevated troponin (Acute) Enterocolitis (Acute) oxycodone Adverse Reaction (Intermediate, Verified 02/08/24 17:02) Agitation prednisone Adverse Reaction (Intermediate, Verified 02/08/24 17:02) Agitation, depressed mood clams Adverse Reaction (Severe, Uncoded 02/08/24 17:02) gi Resuscitation Status Full Code Height 5 ft 10 in Weight 81.2 kg Pharmacy Admission Review Renal Dosing Renal Dosing: BUN 16 mg/dL (7-18) 02/09/24 06:15 Creatinine 0.8 mg/dL (0.70-1.30) 02/09/24 06:15 Medications needing adjustments: Reviewed (CrCl 83.4 mL/min) Anticoagulation Anticoagulation: Hgb 12.6 g/dL (13.5-17.5) L D 02/09/24 06:15 Hct 35.9 % (40.0-50.0) L 02/09/24 06:15 Plt Count 246 10^3/uL (130-400) 02/09/24 06:15 Creatinine 0.8 mg/dL (0.70-1.30) 02/09/24 06:15 DVT Prophylaxis: Reviewed Medications: Enoxaparin (40mg q24h) Relevant Labs Relevant Labs: Sodium 141 mmol/L (136-145) 02/09/24 06:15 Potassium 3.8 mmol/L (3.5-5.1) 02/09/24 06:15 Chloride 105 mmol/L (98-107) 02/09/24 06:15 Magnesium 1.9 mg/dL (1.8-2.4) 02/09/24 06:15 Electrolytes, C-Reactive P, ESR: Reviewed (Hgb decreased from 16 to 12.6) Cardiac Review Cardiac Review: Troponin I 121 ng/L (< or =60) H* 02/09/24 06:15 BP, HR, EF%: Reviewed (HR and BP WNL, troponin decreased from 128 to 121) QTc Review QTc: Reviewed (404 from 02/08/24) IV to PO Switch IV Medications: Reviewed (Ondansetron (switch to PO?)) Home Meds Home Med List reviewed: Intervened Relevent Home Meds Not ordered & why?: Reached out to provider this morning as no orders had been put in for patients home meds. Orders have since been added, except for ibuprofen (PRN) Current Meds Current Medication Order Review: Reviewed
[2024-02-09] MEDS: Lactated Ringers 1,000 ML 100 ML IV (11:12)
--- NOTE | 2024-02-09 11:51 | DSE_ITS ---
Date of service: 02/09/24 Time of Service: 11:51 DS: Diagnosis Discharge Diagnosis (1) Enterocolitis: Status: Acute Asessment and Plan: Patient presented with signs and symptoms consistent with viral colitis and had improvement of his symptoms with fluid hydration and antiemetics. Additionally, patient had very mild elevation of troponin without chest pain or EKG changes that ultimately peaked at 147 and began to decrease. Ultimately, was determined that the patient was stable for discharge home (2) Elevated troponin: Status: Acute Discharge Plan Disposition Patient Disposition: Home Condition: Good Discharge Details Reason For Visit: colitis, elevated troponin Admit Date/Time: 02/08/24 20:44 Admit Provider: Toy Monique Attending Provider: Toy Monique Primary Care Provider: Christiana Hernandez Hospital Course Hospital Course: Patient presented with signs and symptoms consistent with viral colitis and had improvement of his symptoms with fluid hydration and antiemetics. Additionally, patient had very mild elevation of troponin without chest pain or EKG changes that ultimately peaked at 147 and began to decrease. Ultimately, was determined that the patient was stable for discharge home Home Meds and New Rx's Prescriptions: Continued ibuprofen 200 mg tablet 400 mg PO Q6H PRN atorvastatin 40 mg tablet See Rx Instructions .ROUTE .COMPLEX Qty: 90 3RF Dose Instruction: TAKE ONE TABLET BY MOUTH EVERY DAY Rx Instructions: TAKE ONE TABLET BY MOUTH EVERY DAY lisinopril 10 mg tablet See Rx Instructions .ROUTE .COMPLEX Qty: 90 3RF Dose Instruction: TAKE ONE TABLET BY MOUTH EVERY DAY Rx Instructions: TAKE ONE TABLET BY MOUTH EVERY DAY trazodone 150 mg tablet 150 mg PO QHS PRN (Reason: insomnia) Qty: 90 3RF aspirin 81 MG tablet,chewable 81 mg PO DAILY acetaminophen 500 mg capsule 1,000 mg PO Q8H PRN PRNQty: 30 0RF tamsulosin [Flomax] 0.4 mg capsule 0.4 mg PO DAILY Qty: 30 0RF Discharge Instructions Activity:: Activity as Tolerated Equipment/Supplies:: No Equipment Needed Diet:: As Tolerated Discharge Orders Discharge Orders: Discharge Order (Routine); Ordered 02/09/24 Ordered By: Toy Monique DS: Summary Time Spent with Patient providing and/or coordinating discharge services: Greater than 30 minutes Status at Discharge Functional status at discharge: independent ambulation Overall status at discharge: patient is back to baseline Mental Status: mental status grossly normal Speech and Movement: speech and movement normal Mood: congruent mood Affect: normal affect Quality:SDOH Health Related Social Needs: No Data to Display Exam Narrative Exam Narrative: Well-appearing older gentleman lying in bed in no acute distress, ANO x 4, heart regular rhythm, lungs clear to auscultation bilaterally Psych Mental Status: mental status grossly normal Speech and Movement: speech and movement normal Mood: congruent mood Affect: normal affect DS: Data Vitals/I&O Vitals and I&O: Vital Signs Temperature 97.5 F L 02/09/24 09:31 Temperature Source Tympanic 02/09/24 09:31 Pulse 67 02/09/24 09:31 Pulse Rhythm Regular 02/09/24 09:00 Pulse 73 02/08/24 22:31 Respiratory Rate 18 02/09/24 09:31 Respiratory Effort Normal, Non-Labored 02/09/24 09:00 Respiratory Depth Normal 02/09/24 09:00 Respiratory Pattern Normal 02/09/24 09:00 Blood Pressure 139/86 02/09/24 09:31 Blood Pressure Mean 93 02/08/24 22:31 Blood Pressure Position Sitting 02/08/24 17:02 Pulse Oximetry 99 02/09/24 09:31 Oxygen Delivery Method Room Air 02/09/24 09:31 Oxygen Flow Rate 0 02/09/24 09:31 Pain Level 0 02/09/24 09:31 Intake & Output 02/08/24 02/09/24 02/09/24 16:59 05:59 17:59 Intake Total 1000 / 1000 Balance 1000 / 1000 Weight Intake: IV 1000 / 1000 Other: Urine Color Yellow Urine Appearance Clear Urine Odor None Voiding Methods Toilet Data Completed and Pending Labs on day of discharge: Labs from last 24 hours 02/09/24 02/09/24 02/08/24 06:15 00:27 20:00 WBC 6.20 RBC 4.05 L Hgb 12.6 L D Hct 35.9 L MCV 89 MCH 31.1 MCHC 35.1 RDW 12.1 Plt Count 246 MPV 9.7 Immature Gran % 0.2 Neutrophils % 55.2 Lymphocytes % 30.5 Monocytes % 12.7 Eosinophils % 1.1 Basophils % 0.3 Nucleated RBC % 0.0 Absolute Neutrophils 3.42 Absolute Lymphocytes 1.89 Absolute Monocytes 0.79 Absolute Eosinophils 0.07 Absolute Basophils 0.02 Sodium 141 Potassium 3.8 Chloride 105 Carbon Dioxide 25.9 Anion Gap 10.1 BUN 16 Creatinine 0.8 Est GFR (CKD-EPI 2020) 97.61 Glucose 92 Calcium 8.3 L Magnesium 1.9 Total Bilirubin AST ALT Alkaline Phosphatase Troponin I 121 H* 128 H* Total Protein Albumin Lipase Free PSA Total PSA PSA Free/Total Ratio Urine Color Urine Clarity Urine pH Ur Specific [place] Urine Protein Urine Ketones Urine Blood Urine Nitrite Urine Bilirubin Urine Urobilinogen Ur Leukocyte Esterase Urine RBC Urine WBC Ur Epithelial Cells Urine Crystals Urine Bacteria Urine Casts Urine Mucus Ur Culture Indicated? Urine Glucose Stool Description Stool Campylobacter PCR Stl C.difficile Tox PCR Pending Stool Salmonella PCR Stool Shigella PCR Stool Ova & Parasites Cryptosporidium/Giardia Shiga Toxin (PCR) 02/08/24 02/08/24 02/08/24 19:55 19:48 17:34 WBC RBC Hgb Hct MCV MCH MCHC RDW Plt Count MPV Immature Gran % Neutrophils % Lymphocytes % Monocytes % Eosinophils % Basophils % Nucleated RBC % Absolute Neutrophils Absolute Lymphocytes Absolute Monocytes Absolute Eosinophils Absolute Basophils Sodium Potassium Chloride Carbon Dioxide Anion Gap BUN Creatinine Est GFR (CKD-EPI 2020) Glucose Calcium Magnesium Total Bilirubin AST ALT Alkaline Phosphatase Troponin I Total Protein Albumin Lipase Free PSA Pending Total PSA Pending PSA Free/Total Ratio Pending Urine Color Yellow Urine Clarity Clear Urine pH 5.5 Ur Specific [place] >= 1.030 H Urine Protein 30 H Urine Ketones 15 H Urine Blood Trace-intact H Urine Nitrite Negative Urine Bilirubin Negative Urine Urobilinogen 0.2 Ur Leukocyte Esterase Negative Urine RBC 3-5 H Urine WBC 0-2 Ur Epithelial Cells Few Urine Crystals Negative Urine Bacteria Few Urine Casts 0-2 Hyaline Urine Mucus Moderate Ur Culture Indicated? No Urine Glucose Negative Stool Description Pending Stool Campylobacter PCR Pending Stl C.difficile Tox PCR Negative Stool Salmonella PCR Pending Stool Shigella PCR Pending Stool Ova & Parasites Pending Cryptosporidium/Giardia Pending Shiga Toxin (PCR) Pending 02/08/24 02/08/24 17:16 17:14 WBC 13.73 H RBC 5.18 Hgb 16.0 Hct 45.3 MCV 88 MCH 30.9 MCHC 35.3 RDW 12.0 Plt Count 315 MPV 9.4 Immature Gran % 0.3 Neutrophils % 71.8 Lymphocytes % 20.3 Monocytes % 6.9 Eosinophils % 0.3 Basophils % 0.4 Nucleated RBC % 0.0 Absolute Neutrophils 9.86 H Absolute Lymphocytes 2.79 Absolute Monocytes 0.95 H Absolute Eosinophils 0.04 Absolute Basophils 0.05 Sodium 142 Potassium 3.9 Chloride 103 Carbon Dioxide 24.3 Anion Gap 14.7 H BUN 18 Creatinine 1.2 Est GFR (CKD-EPI 2020) 66.70 Glucose 104 Calcium 9.2 Magnesium Total Bilirubin 0.4 AST 19 ALT 35 Alkaline Phosphatase 83 Troponin I 147 H* Cancelled Total Protein 9.2 H Albumin 4.1 Lipase 46 Free PSA Total PSA PSA Free/Total Ratio Urine Color Urine Clarity Urine pH Ur Specific [place] Urine Protein Urine Ketones Urine Blood Urine Nitrite Urine Bilirubin Urine Urobilinogen Ur Leukocyte Esterase Urine RBC Urine WBC Ur Epithelial Cells Urine Crystals Urine Bacteria Urine Casts Urine Mucus Ur Culture Indicated? Urine Glucose Stool Description Stool Campylobacter PCR Stl C.difficile Tox PCR Stool Salmonella PCR Stool Shigella PCR Stool Ova & Parasites Cryptosporidium/Giardia Shiga Toxin (PCR) PFSH All Active Problems (Updated 02/08/24 @ 22:27 by Reji Barragan MD) Elevated troponin (Acute) Enterocolitis (Acute) Non-ST elevation ND (NSTEMI) (Acute) Vomiting and diarrhea (Acute) Urinary tract infection (Acute) Calcific tendinitis of left shoulder (Acute) Rotator cuff tear, left (Acute) status post left shoulder arthroscopy with supraspinatus repair, biceps tenodesis, extensive debridement, and subacromial decompression on 02/21/23 Chronic left shoulder pain (Acute) Left medial knee pain (Acute) Arthritis of left wrist (Acute ~09/2022) 09/26/22 Orthopaedics - Dr Reed Tendinitis of long head of biceps brachii of left shoulder (Acute) SARS-CoV-2 positive (Acute ~08/18/22) 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) Tear of medial meniscus of right knee, current (Acute) S/P right knee arthroscopy with partial medial meniscectomy: 02/12/2022 Internal derangement of right knee (Acute) Insomnia (Acute) Family history of heart disease (Acute) GALLEGOS (dyspnea on exertion) (Acute) Bilateral knee pain (Acute) Otitis externa (Acute) Routine medical exam (Acute) Lumbar disc herniation with radiculopathy (Acute) Essential hypertension (Acute 05/15/13) FRS 21% Hyperlipidemia (Acute 09/26/16) CV risk 19% LDL baseline 124 Left leg numbness (Acute) Sensorineural hearing loss of both ears (Chronic) Low back pain (Acute) Leg weakness (Acute) Medical History Diverticulosis Osteoarthritis GERD (gastroesophageal reflux disease) pt reports resolved Anxiety reports being stressed financially while raising a family; denies current stressors Depression HTN (hypertension) Hyperlipemia Surgical History Inguinal hernia of left side without obstruction or gangrene (~08/2023) Status post nasal surgery reports surgery after trauma to his nose History of colonoscopy (~12/21/19) 2008- normal Trigger Finger release (02/04/13) BILATERAL MIDDLE FINGERS Tonsillectomy RUPTURE EXTENSOR POLLICIS LONGUS TENDON (04/02/12) RIGHT THUMB Social History Smoking/Tobacco Use Status: Former Tobacco Use Quit Date: 12/02/06 Tobacco: How many years used: 8 Smoking risk assessment performed?: Yes Alcohol Intake: current Alcohol Intake frequency: holidays/special occasions only Alcohol type: beer Drug use: Occasionally Substance use type: marijuana Details: 09/18/23 occasionally Household members: spouse and children Housing: house Number of Children: 5 number of grandchildren: 1 Communication Needs: Hard of Hearing Do you need help understanding health information?: Rarely 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 Pets and animals: Yes Pets and animals: cat(s) and dog(s) Sexually active: Yes Do you think of yourself as: straight/heterosexual Current gender identity: male What is your relationship status?: How often do you talk on the phone with friends or family?: twice per week How often do you get together with friends or relatives?: twice per week How often do you attend buddhist or faith services?: 4 or more times per year Do you belong to any clubs or organized social groups?: no Panel score (0-1 are the most socially isolated patients): 3 What type of physical activity do you participate in: walking and additional Details: active at work, lifting some, walking some Duration: > 90 minutes/day Frequency: daily Leslie/Hoahaoism: Episcopal Special leslie needs: No Seatbelt use: always Helmet use: No Drive intox or ride w/intox industrial truck driver: No Working smoke detector in home: Yes Fire extinguisher in home: Yes Carbon monox detector in home: Yes Do you feel safe at home: Yes Do you feel safe in your relationship?: Yes Additional Social history: unable to assess privatley Time Spent with Patient Time Spent with Patient: <45 minutes Time was spent: preparing to see the patient(eg.review tests), obtaining and/or reviewing separately otained hiistory, ordering medications,tests, procedures, referring, communicating with other health home visit field care manager, indepentently interpreting results, counseling the patient and care coordination
--- NOTE | 2024-02-09 13:31 | PDOC.CMDIS ---
Date of service: 02/09/24 Time of Service: 13:31 LACE Index Scoring Tool Questions: Length of Stay (in days): 1 Was the patient admitted via the E.D.?: Yes Comorbidities: Previous M.I. E.D. Visits: 2 Answers: Total Score: 7 Risk of Readmission: Low Risk Care Management Discharge Plan Reason for Hospitalization: enterocolitis Discharge Plan: Marcell will be discharged home with no new services. He will follow up with his PCP and plan of care and transport with family. CM will follow and support discharge planning needs. Patient/Family Education Needs: Review of discharge instructions, activity, limitations, follow up plan, discuss Ask Me Three [facility] Health Related Social Needs: No Data to Display
[2024-02-09 23:01] LABS: Campylobacter PCR Negative (Negative); Salmonella PCR Negative (Negative); Shiga Toxin PCR Negative (Negative); Shigella/Enteroinvasive Ecoli Negative (Negative)
== END 2024-02-09 13:15 | disposition home or self-care (01) ==
LOC: ER 23:02 → MS 23:37
PROVIDERS: Hospitalist; Admitting Provider Family Medicine; Emergency Provider Student in an Organized Health Care Education/Training Program; PCP Nurse Practitioner; Visit Provider Family Medicine
DX: A08.4 Viral intestinal infection, unspecified (principal); R74.8 Abnormal levels of other serum enzymes; R63.4 Abnormal weight loss; Z68.25 Body mass index [BMI] 25.0-25.9, adult; R11.2 Nausea with vomiting, unspecified; R05.3 Chronic cough; Z87.440 Personal history of urinary (tract) infections; I25.2 Old myocardial infarction; I10 Essential (primary) hypertension; E78.5 Hyperlipidemia, unspecified; K57.90 Diverticulosis of intestine, part unspecified, without perforation or abscess without bleeding; F32.A Depression, unspecified; Z79.899 Other long term (current) drug therapy
CPT/HCPCS: 00123; 36415; 71250; 80048; 80053; 83690; 87329; 87493; 87505; 93005; 96361; 96374; 99285; J1650; 70450; 74176; 81003; 81015; 83735; 84154; 84484; 85025; 87177; 93010; 99223; 99238; G0378; J2405

== ENCOUNTER → 2024-03-19 03:42 | Outpatient (CLI) | payer MEDICARE, SELFPAY ==
--- NOTE | 2024-03-19 07:30 | DI.US_ITS ---
APPROVED REPORT EXAM: Comprehensive 2D, Doppler, and color-flow Echocardiogram Patient Location: Out-Patient Fur Glazer: Kellie Burr RDCS (AE) Indications: NSTEMI, Wall motion abnormality Other Information Study Quality: Adequate Conclusion Normal left ventricular wall thickness and chamber size. EF is 58%. Wall motion is normal Normal right ventricular size and function Both atria are normal in size The aortic valve is sclerotic and trileaflet without stenosis or regurgitation Normal mitral valve with mild regurgitation Ascending aorta 3.59 cm Wall motion Left Ventricle The left ventricle is normal size. The left ventricular systolic function is normal. The left ventric ular ejection fraction is within the normal range. There is normal left ventricular wall thickness. T here is normal LV segmental wall motion. There is no ventricular septal defect visualized. LVEF is 58 %. Right Ventricle The right ventricle is normal size. The right ventricular systolic function is normal. Atria The left atrium size is normal. The right atrium size is normal. The interatrial septum is intact wit h no evidence for an atrial septal defect. Aortic Valve The Aortic valve is sclerotic. Aortic valve is trileaflet. There is no aortic valvular stenosis. No a ortic regurgitation is present. Mitral Valve The mitral valve is normal in structure. No evidence of mitral valve stenosis. Mild mitral regurgita tion. Tricuspid Valve The tricuspid valve is normal in structure. There is no tricuspid valve stenosis. Trace tricuspid re gurgitation. The RVSP is 26.7 mmHg. Pulmonic Valve The pulmonary valve is normal in structure. There is no pulmonic valvular stenosis. There is no pulmo elma valvular regurgitation. Great Vessels The aortic root is normal in size. The ascending aorta is mildly dilated. Aortic arch is normal in ca liber. IVC is normal in size and collapses >50% with inspiration. Pericardium There is no pericardial effusion. 2D Dimensions IVSD d PLAX 0.86 cm M: 0.6-1.2 Ao Root d 2.79 cm M: 3.1 - 3.7 LVPW d PLAX 0.91 cm M: 0.6 - 1.2 Ao Asc Diam d 3.59 cm M: 2.6 - 3.4 LVID d PLAX 5.12 cm M: 4.2 - 5.8 LVDs 3.53 cm M: 2.5 - 4.0 LV EF Teichholz 58.3 % FS 30.97 % LV EDV (Teich) 125.0 mL LV ESV (Teich) 52.1 mL M-Mode TAPSE 2.46 cm (M/F) >1.7 Auto EF LV EDV A4C 119.9 mL LV EDV A2C 138.1 mL LV EDV BP 129.3 mL LV ESV A4C 54.4 mL LV ESV A2C 62.8 mL LV ESV BP 59.7 mL LVEF(%) A4C 54.6 % LVEF(%) A2C 54.5 % LVEF(%) BP 53.8 % LV SV A4C 65.4 ml LV SV A2C 75.4 ml LV SV BP 69.5 ml LV CO A4C 3.7 L/min LV CO A2C 4.6 L/min LV CO BP 4.1 L/min HR A4C 56.88 BPM HR A2C 60.71 BPM LV EDV Index (BP) LA Volume LA Length A4C 5.6 cm LA Length A2C 6.1 cm LA Area A4C s 21.45 cm2 LA Area A2C s 21.90 cm2 LA Vol A4C A-L 69.51 mL LA Vol A2C A-L 66.58 mL LA Vol Biplane A-L 71.0 mL LA Vol/BSA A4C A-L LA Vol/BSA A2C A-L LA Vol/BSA BP A-L 35.0 mL/m2 LA Vol A4C MOD 64.7 mL LA Vol A2C MOD 63.1 mL LA Vol BP MOD 66.6 mL RA Volume RA Area A4C 17.8 cm2 RA ESV A4C (A-L) 52.4mL RA Vol/BSA A4C A-L RA Length A4C 5.1 cm RA ESV A4C (MOD) 49.4mL LV Diastology MV E' medial 0.067 (>0.07 m/s) MV E Vmax 0.61 (0.4-1.3 m/s) MV E/E' MED 9.16 (<14) MV A Vmax 0.65 (0.4-1.3 m/s) MV E' lateral 0.108 (>0.1 m/s) E/A Ratio 0.9 MV E/E' LAT 5.68 (<14) MV E' Average 0.087 m/s MV E/E'(average) 7.01 Aortic Valve AoV Vmax 1.52 m/s LVOT Vmax 0.95 m/s AoV Peak Grad 9.3 mmHg LVOT Peak Grad 3.6 mmHg AoV Area (Vmax) 1.95 cm2 LVOT VTI 0.210 m AoV VTI 0.343 m LVOT Mean Grad 2.0 mmHg AoV Mean Horacio. 1.08 m/s LVOT SV 66.02 mL AoV Mean Grad 5.3 mmHg LVOT Diam s 2.00 cm AoV Area (VTI) 1.93 cm2 Velocity Ratio 0.63 Mitral Valve MV DT 162 (160-240 msec) MV Vmax TIPS 0.68 m/s MV Mean Grad 0.8 (<2mmHg) MV VTI 0.206 m Pulmonary Valve PV Vmax 1.28 (0.5-1.5 m/s) RVOT Vmax 0.62 m/s PV Peak Grad 6.5 mmHg RVOT Peak Gr. 1.5 mmHg PV Mean Horacio 0.80 m/s RVOT VTI 0.133 m PV Mean Grad 3.0 mmHg RVOT Mean Gr. 0.9 mmHg Tricuspid Valve RA Pressure 3.00 mmHg TR Vmax 2.43 m/s TV S' 0.13 m/s TR Peak Grad 23.6 mmHg RVSP (TR) 26.7 mmHg
== END ==
PROVIDERS: PCP Nurse Practitioner; Visit Provider Nurse Practitioner Adult Health
DX: I21.4 Non-ST elevation (NSTEMI) myocardial infarction (principal)
CPT/HCPCS: 93306

== ENCOUNTER 2024-05-27 08:23 | Emergency (ER) | payer MEDICARE, SELFPAY ==
[2024-05-27 08:27] VITALS: BP 138/75; PULSE 62; RESP 15; TEMP 36.7; O2SAT 99
--- NOTE | 2024-05-27 08:30 | DI.RAD_ITS ---
Exam(s) XR FOOT RT COMPLETE EXAM: XR FOOT RT COMPLETE CLINICAL HISTORY: retained FB plantar 5th tarsal area. TECHNIQUE: 2D digital imaging was performed. Three views. COMPARISON: No exams were available for comparison FINDINGS: BONES: No acute fracture is present. No bony destructive lesion is seen. Multiple 1st metatarsal ses amoids. Accessory navicular. JOINTS: No dislocation present. Hammertoe deformity of 2nd toe. The distal phalanx is not well prof iled. Mild degenerative changes. SOFT TISSUE: Normal. No foreign body. IMPRESSION: No acute abnormality DATA REPOSITORY: RADIATION DOSE DELIVERED:
--- NOTE | 2024-05-27 08:38 | W.ED.GENAD ---
Discharge Plan Disposition Patient Disposition: Home Condition: Stable Discharge Details Clinical Impression: Foreign body in right foot Primary Care Provider: Christiana Hernandez ED Provider: Moshe Padilla Home Meds and New Rx's Prescriptions: Continued ibuprofen 200 mg tablet 400 mg PO Q6H PRN trazodone 150 mg tablet 150 mg PO QHS PRN (Reason: insomnia) Qty: 90 3RF atorvastatin 40 mg tablet See Rx Instructions .ROUTE .COMPLEX Qty: 90 3RF Dose Instruction: TAKE ONE TABLET BY MOUTH EVERY DAY Rx Instructions: TAKE ONE TABLET BY MOUTH EVERY DAY lisinopril 10 mg tablet See Rx Instructions .ROUTE .COMPLEX Qty: 90 3RF Dose Instruction: TAKE ONE TABLET BY MOUTH EVERY DAY Rx Instructions: TAKE ONE TABLET BY MOUTH EVERY DAY aspirin 81 MG tablet,chewable 81 mg PO DAILY acetaminophen 500 mg capsule 1,000 mg PO Q8H PRN PRNQty: 30 0RF tamsulosin [Flomax] 0.4 mg capsule 0.4 mg PO DAILY Qty: 30 0RF Discharge Instructions Instructions: Foreign Body in Skin ED Additional Instructions: You were seen in the emergency department for the possible remnants of a retained foreign body of a splinter in the sole of your right foot, he was able to remove a piece of hard on identifiable material. Please keep the small incision I made covered with a clean Band-Aid and bacitracin or Neosporin for the next few days. Please return for any severe signs of infection like redness spreading outward from the foot, red streaking up the leg, severe increase in pain, fever, otherwise please follow-up with podiatry for any complications. Referrals: [facility] [Provider Group] Christiana Hernandez TABLEAU ARCHITECT [Primary Care Provider] - Discharge Data Discharge Date/Time-TO BE ENTERED AT DEPARTURE: 05/27/24 10:45 HPI General Date/Time Provider Initiated Documentation: 05/27/24 08:38. HPI Narrative: 68 year-old male presents to ED today by POV/ambulating with a chief complaint of possible retained splinter in sole of R foot with onset 3 weeks ago, vaguely remembers a splinter but thought he got it all out. He also walks around the house barefoot as well. Quality described as a hard sharp object at the base of his 5th tarsal area on plantar surface, no radiation to numbness/tingling, redness, swelling, purulent drainage, inability to ambulate. Severity is described as mild. Palliating factors include nothing specific attempted. Provoking factors include putting pressure on it. Patient not anticoagulated. Related Data Home Medications Medication Instructions Recorded Confirmed aspirin 81 mg chewable tablet 81 mg PO DAILY 02/03/13 05/27/24 acetaminophen 500 mg capsule 1,000 mg (2 x 500 mg) PO Q8H PRN 01/31/22 05/27/24 PRN #30 caps ibuprofen 200 mg tablet 400 mg PO Q6H PRN 03/20/23 05/27/24 tamsulosin 0.4 mg capsule (Flomax) 0.4 mg PO DAILY #30 caps 10/23/23 05/27/24 trazodone 150 mg tablet 150 mg PO QHS PRN insomnia #90 tabs 12/23/23 05/27/24 atorvastatin 40 mg tablet See Rx Instructions .Route 02/24/24 05/27/24 .COMPLEX #90 tabs lisinopril 10 mg tablet See Rx Instructions .Route 02/24/24 05/27/24 .COMPLEX #90 tabs Previous Rx's Medication Instructions Recorded acetaminophen 500 mg capsule 1,000 mg (2 x 500 mg) PO Q8H PRN 01/31/22 PRN #30 caps tamsulosin 0.4 mg capsule (Flomax) 0.4 mg PO DAILY #30 caps 10/23/23 trazodone 150 mg tablet 150 mg PO QHS PRN insomnia #90 tabs 12/23/23 atorvastatin 40 mg tablet See Rx Instructions .Route 02/24/24 .COMPLEX #90 tabs lisinopril 10 mg tablet See Rx Instructions .Route 02/24/24 .COMPLEX #90 tabs Allergies Allergy/AdvReac Type Severity Reaction Status Date / Time oxycodone AdvReac Intermediate Agitation Verified 05/27/24 08:32 prednisone AdvReac Intermediate Agitation, Verified 05/27/24 08:32 depressed mood clams AdvReac Severe gi Uncoded 05/27/24 08:32 General Stated Complaint: Orthopedic NAVI: 4 Review of Systems All systems reviewed & are unremarkable except as noted in HPI and below Exam Narrative Exam Narrative: GENERAL APPEARANCE: Well-nourished, non-toxic, awake and alert, atraumatic, no acute distress. SKIN: Warm, pink, dry, intact, without rashes/lesions/ulcerations. HEAD: Normocephalic, atraumatic, normal hair distribution for gender/age. EYES: Pupils PERRLA, EOMs intact without nystagmus, normal conjunctiva, no exudates on lids/lashes. ENT: Nares patent, no circumoral cyanosis, no facial swelling NECK: Supple, trachea midline, painless cervical ROM. LUNGS/CHEST: Non-labored respirations, normal A/P diameter, symmetrical expansion, no chest wall deformity HEART (CV/PV): Regular rate, R dorsalis pedis pulse 2+, no peripheral edema, no JVD. ABDOMEN: Soft, non-distended, no guarding. MSK: Normal ROM, no swelling/deformity to bilateral UEs or LEs, moving all extremities without weakness, no cyanosis, spine midline without tenderness, normal curvature. R FOOT: No swelling or erythema to the right foot, there is a tiny less than 0.1 cm hard sharp nodule just under the skin of the plantar surface, no fluctuance, no purulent drainage, able to weight-bear, sensation intact, right dorsalis pedis pulse 2+ NEURO: Mental Status AAOx4 - alert to person, place, time, events No facial droop, no forehead involvement. Motor: No focal weakness - strength 5/5 in bilateral UEs and LEs, proximal and distal, symmetric. Sensory: sensation intact to light touch globally. Gait normal: patient ambulated without ataxia into ED room. PSYCH: euthymic, cooperative, pleasant, appropriate speech Course Vital Signs Vital signs: Vital Signs Temperature 36.7 C 05/27/24 08:27 Pulse 62 05/27/24 08:27 Respiratory Rate 15 05/27/24 08:27 Blood Pressure 138/75 05/27/24 08:27 Pulse Oximetry 99 05/27/24 08:27 Temperature 36.7 C 05/27/24 08:27 Temperature Source Temporal Artery Scan 05/27/24 08:27 Pulse 62 05/27/24 08:27 Respiratory Rate 15 05/27/24 08:27 Respiratory Effort Normal 05/27/24 08:31 Blood Pressure 138/75 05/27/24 08:27 Blood Pressure Position Sitting 05/27/24 08:27 Pulse Oximetry 99 05/27/24 08:27 Oxygen Delivery Method Room Air 05/27/24 08:27 Oxygen Flow Rate 0 05/27/24 08:27 Pain Level 0 05/27/24 08:36 Procedures Foreign Body Removal Time Out Performed: no Site: right and foot Description of foreign body: other (unknown, tiny piece of glass or wood) Sedation/Analgesia: none Technique: removal with forceps and incision made to facilitate removal Confirmed by:: direct visualization Complications: none Post-procedure exam: awake, alert, normal BP, normal HR and normal O2 sat Neurovascular: normal distal pulse, normal capillary fill, distal light touch sensation intact and distal motor function normal Medical Decision Making This dictation utilizes [id number] dictation software and may contain unedited grammatical errors. 68 year-old male presents to ED today by POV/ambulating with a chief complaint of possible retained splinter in sole of R foot with onset 3 weeks ago, vaguely remembers a splinter but thought he got it all out. He also walks around the house barefoot as well. Quality described as a hard sharp object at the base of his 5th tarsal area on plantar surface, no radiation to numbness/tingling, redness, swelling, purulent drainage, inability to ambulate. Severity is described as mild. Palliating factors include nothing specific attempted. Provoking factors include putting pressure on it. Patients' medical history: noncontributory. Family and social history: noncontributory. Pertinent exam findings / vital signs include R FOOT: No swelling or erythema to the right foot, there is a tiny less than 0.1 cm hard sharp nodule just under the skin of the plantar surface, no fluctuance, no purulent drainage, able to weight-bear, sensation intact, right dorsalis pedis pulse 2+. Differential / pathologies of concern include retained foreign body. Diagnostic studies of: -XR R foot-no acute abnormality seen. Interventions of: -Small incision and drainage was performed with removal of a small unidentifiable hard object. ED Course/Assessment/Plan: 68-year-old male presents with likely retained small piece of glass or splinter in the base of his right foot, this was removed without issue, use bandaged with bacitracin. Strict return criteria for any signs of infection stressed on discharge. No complications of procedure, neurovascularly intact pre and postprocedure. Findings not consistent with infection, retained foreign body after procedure, neurovascular compromise. Disposition of foreign body in right foot. Patient verbalized understanding of the plan and return to ED criteria and engaged in shared decision making. Medical Records Medical records reviewed: Yes I reviewed the patient's medical records. Imaging Data Radiologic Study: Attestation: I personally reviewed and interpreted this imaging study as follows: Imaging: X-Ray Radiologist's impression: EXAM: XR FOOT RT COMPLETE CLINICAL HISTORY: retained FB plantar 5th tarsal area. TECHNIQUE: 2D digital imaging was performed. Three views. COMPARISON: No exams were available for comparison FINDINGS: BONES: No acute fracture is present. No bony destructive lesion is seen. Multiple 1st metatarsal sesamoids. Accessory navicular. JOINTS: No dislocation present. Hammertoe deformity of 2nd toe. The distal phalanx is not well profiled. Mild degenerative changes. SOFT TISSUE: Normal. No foreign body. IMPRESSION: No acute abnormality Quality:SDOH Health Related Social Needs: No Data to Display PFSH All Active Problems (Updated 05/27/24 @ 10:36 by KASSANDRA Lara) Foreign body in right foot (Acute) Non-ST elevation MD (NSTEMI) (Acute) Vomiting and diarrhea (Acute) Urinary tract infection (Acute) Calcific tendinitis of left shoulder (Acute) Rotator cuff tear, left (Acute) status post left shoulder arthroscopy with supraspinatus repair, biceps tenodesis, extensive debridement, and subacromial decompression on 02/21/23 Chronic left shoulder pain (Acute) Left medial knee pain (Acute) Arthritis of left wrist (Acute ~09/2022) 09/26/22 Orthopaedics - Dr Reed Tendinitis of long head of biceps brachii of left shoulder (Acute) SARS-CoV-2 positive (Acute ~08/18/22) 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) Tear of medial meniscus of right knee, current (Acute) S/P right knee arthroscopy with partial medial meniscectomy: 02/12/2022 Internal derangement of right knee (Acute) Insomnia (Acute) Family history of heart disease (Acute) GALLEGOS (dyspnea on exertion) (Acute) Bilateral knee pain (Acute) Otitis externa (Acute) Routine medical exam (Acute) Lumbar disc herniation with radiculopathy (Acute) Essential hypertension (Acute 05/15/13) FRS 21% Hyperlipidemia (Acute 10/26/16) CV risk 19% LDL baseline 124 Left leg numbness (Acute) Sensorineural hearing loss of both ears (Chronic) Low back pain (Acute) Leg weakness (Acute) Medical History Diverticulosis Osteoarthritis GERD (gastroesophageal reflux disease) pt reports resolved Anxiety reports being stressed financially while raising a family; denies current stressors Depression HTN (hypertension) Hyperlipemia Surgical History Inguinal hernia of left side without obstruction or gangrene (~08/2023) Status post nasal surgery reports surgery after trauma to his nose History of colonoscopy (~12/21/19) 2009- normal Trigger Finger release (02/04/13) BILATERAL MIDDLE FINGERS Tonsillectomy RUPTURE EXTENSOR POLLICIS LONGUS TENDON (04/02/12) RIGHT THUMB Social History Smoking/Tobacco Use Status: Former Tobacco Use Quit Date: 12/02/06 Tobacco: How many years used: 8 Smoking risk assessment performed?: Yes Alcohol Intake: current Alcohol Intake frequency: holidays/special occasions only Alcohol type: beer Drug use: Occasionally Substance use type: marijuana Details: 09/18/23 occasionally Household members: spouse and children Housing: house Number of Children: 5 number of grandchildren: 1 Communication Needs: Hard of Hearing Do you need help understanding health information?: Rarely 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 Pets and animals: Yes Pets and animals: cat(s) and dog(s) Sexually active: Yes Do you think of yourself as: straight/heterosexual Current gender identity: male What is your relationship status?: How often do you talk on the phone with friends or family?: twice per week How often do you get together with friends or relatives?: twice per week How often do you attend orthodoxy or gnosticism services?: 4 or more times per year Do you belong to any clubs or organized social groups?: no Panel score (0-1 are the most socially isolated patients): 3 What type of physical activity do you participate in: walking and additional Details: active at work, lifting some, walking some Duration: > 90 minutes/day Frequency: daily Leslie/Rastafari: Voodoo Special leslie needs: No Seatbelt use: always Helmet use: No Drive intox or ride w/intox canal driver: No Working smoke detector in home: Yes Fire extinguisher in home: Yes Carbon monox detector in home: Yes Do you feel safe at home: Yes Do you feel safe in your relationship?: Yes Additional Social history: unable to assess privatley
[2024-05-27 10:45] VITALS: BP 154/91; PULSE 58; RESP 18; O2SAT 99
== END 2024-05-27 10:45 | disposition home or self-care (01) ==
PROVIDERS: Emergency Provider Physician Assistant; PCP Nurse Practitioner
DX: S90.851A Superficial foreign body, right foot, initial encounter (principal); W45.8XXA Other foreign body or object entering through skin, initial encounter
CPT/HCPCS: 99283; 73630

== ENCOUNTER 2024-12-22 14:00 | Outpatient (REF) | payer MEDICARE, SELFPAY ==
--- NOTE | 2024-12-22 13:45 | SKI_PTH ---
PATIENT: Marcell Tom LOC: [facility] U#:[id number] AGE/SX: 69/M ROOM: RE12/22/[address]: Henry Dominguez DO : 1955 BED: DIS: 12/22/2024 SPEC #: [id number] RECD: 12/22/24 16:38 STATUS: DREA REQ #: [id number] ENEDINA: 12/22/24 13:[address]: Henry Dominguez DEPT: Surgical Specimen RECD BY: Hayde Aguirre ENTERED: 12/22/24 16:38 SP TYPE: IFEANYI ALFRED DR: Christiana Hernandez APRN Tissues: 1 - SKIN BIOPSY(SHAVE/PUNCH) Procedures: SKIN LEVEL 4 Comments: [id number]
== END 2024-12-22 14:01 | disposition home or self-care (01) ==
LOC: LBN 14:00
PROVIDERS: PCP Nurse Practitioner; Visit Provider Emergency Medicine
DX: B07.8 Other viral warts (principal)
CPT/HCPCS: 88305

== ENCOUNTER 2024-12-28 01:24 | Outpatient (CLI) | payer MEDICARE, SELFPAY ==
--- NOTE | 2024-12-28 06:00 | ETT_ITS ---
APPROVED REPORT Exam: Exercise Treadmill Patient Location: Out-Patient Room/Bed: Stress Nurse: Lizbeth Haines RN Ordering Provider:AI CAINDERICK, Contact Number: [phone] BMI: 27.68 Baseline Rhythm: Sinus Rhythm Comment: Occasional PAC's Indications: NSTEMI Medical History Medical History: NSTEMI, GALLEGOS, HTN, HLD, hearling loss, GERD, anxiety, depression Cardiac Medications: Aspirin, atorvastatin, lisinopril, ezetimibe Allergies: Predinisone, oxycodone Cardiac Risk Factors: Family hx, HTN, HLD, CVD, former smoker Previous Cardiac Procedures: None Pretest Chest Pain Characteristics: None Exercise History: Indeterminate Physical Disabilities: None Lung Sounds: Clear to auscultation Heart Sounds: Regular Stress Test Details Test: Exercise stress testing was performed using a Jose protocol. Rest Stress HR Resting HR Supine: 62 bpm Max Heart Rate (APMHR): 153 bpm Resting HR Standin bpm Target HR (85% APMHR): 130 bpm Max HR Achieved: 136 bpm % of APMHR: 89 Recovery HR: 77 bpm HR response to stress: Normal HR response to stress BP Resting BP Supine: 108/52 mmHg Resting BP Standin/82 mmHg Max BP: 170/68 mmHg Recovery BP: 126/72 mmHg BP response to stress: Normal blood pressure response to stress. ECG Resting ECG: Sinus Rhythm Ectopy: Occasional PAC Stress ECG: Sinus Tachycardia ST Change: No significant ST segment changes noted Arrhythmia: Occasional PAC's, occasional PVC's Recovery ECG: Sinus Rhythm Recovery ST Change: No significant ST segment changes noted Recovery Arrhythmia: Occasional PAC's, occasional PVCS Clinical Reason for Termination: Target HR Achieved Stress Symptoms: None Exercise duration: 05 min51 sec Highest Stage Reached: Stage 2: 2.5 mph at 12% grade. Exercise capacity: 7.08 METs Angina Score: None Murphy Treadmill Score: 5.6 Rate Pressure Product: [id number] Stress ECG Conclusion 1. Resting electrocardiogram was normal 2. Patient exercised on the Jose protocol and completed workload of 7 METS 3. Normal heart rate and blood pressure response to exercise. The patient achieved 89% of predicted heart rate for age 4. There was no electrocardiographic evidence of myocardial ischemia 5. There were no significant dysrhythmias Murphy Treadmill Score is 5.6 which is Low risk. Stress Test Summary STAGE Time (mins) Speed (mph) Grade (%) HR BP SpO2 SYMPTOMS METS Supine 62 108/52 96% Standing 67 112/82 1 3 1.7 10 108 162/72 4.5 2 6 2.5 12 135 7 1 min recovery 90 170/68 98% 3 min recovery 85 118/58 95% 6 min recovery 77 126/72 95%
== END 2024-12-28 01:44 ==
PROVIDERS: PCP Nurse Practitioner; Visit Provider Internal Medicine Cardiovascular Disease
DX: I21.4 Non-ST elevation (NSTEMI) myocardial infarction (principal)
CPT/HCPCS: 93016; 93018; 93017

== ENCOUNTER 2025-03-12 09:10 | Outpatient (CLI) | payer MEDICARE, SELFPAY ==
[2025-03-12 08:50] LABS: Abs Immature Grans 0.03 10^3/uL (0.0-0.06); Absolute Basophil Count 0.04 10^3/uL (0.0-0.2); Absolute Eosinophil Count 0.14 10^3/uL (0.0-0.7); Absolute Monocyte Count 0.77 10^3/uL (0.1-0.8); Absolute Neutrophil Count 4.67 10^3/uL (1.2-6.7); Basophils % 0.5 %; Eosinophils % 1.8 %; HGB 14.3 g/dL (13.5-17.5); Immature Grans % 0.4 %; Lymphocytes % 26.1 %; MCH 31.6 pg (27.0-33.0); MCV 93 fL (80-95); MPV 9.1 fL (8.0-11.0); Monocytes % 10.1 %; Neutrophils % 61.1 %; Platelet Count 287 10^3/uL (130-400); RBC 4.53 10^6/uL (4.36-5.78); RDW 11.9 % (11.8-14.1); WBC 7.65 10^3/uL (4.4-10.8)
[2025-03-12 09:23] LABS: ALT 28 U/L (16-63); AST 17 U/L (15-37); Albumin 3.9 g/dL (3.4-5.0); Alkaline Phosphatase 72 U/L (46-116); Anion Gap 5.1 mmol/L (3-11); BUN 11 mg/dL (7-18); Bilirubin, Total 0.5 mg/dL (0.2-1.0); CO2 29.9 mmol/L (21.0-32.0); CREATININE 0.9 mg/dL (0.70-1.30); Calcium 9.1 mg/dL (8.5-10.1); Calculated LDL 86 mg/dL (<100); Chloride 105 mmol/L (98-107); Cholesterol 150 mg/dL (<200); Estimated GFR 93.61 (mL/min/1.73m2); Glucose 105 mg/dL (74-106); HDL Cholesterol 46 mg/dL (>or=40); Potassium 4.3 mmol/L (3.5-5.1); Sodium 140 mmol/L (136-145); Total Protein 7.9 g/dL (6.4-8.2); Triglyceride 92 mg/dL (<150)
== END 2025-03-12 09:11 | disposition home or self-care (01) ==
PROVIDERS: PCP Nurse Practitioner; Visit Provider Nurse Practitioner
DX: E78.5 Hyperlipidemia, unspecified (principal); I10 Essential (primary) hypertension
CPT/HCPCS: 36415; 80053; 80061; 85025

== ENCOUNTER 2025-03-31 11:17 | Outpatient (CLI) | payer MEDICARE, SELFPAY ==
--- NOTE | 2025-03-31 10:15 | DI.RAD_ITS ---
Exam(s) XR KNEE LT 4V AP,LAT,JODIE,PAT EXAM: XR KNEE LT 4V AP,LAT,JODIE,PAT CLINICAL HISTORY: RIGHT KNEE PAIN. TECHNIQUE: 2D digital imaging was performed. Three views. COMPARISON: CR XR KNEE LT 3V AP,LAT,JODIE from 11/02/2022 FINDINGS: BONES: No acute fracture is present. No bony destructive lesion is seen. JOINTS: There is moderate narrowing of the medial femoral tibial joint space and periarticular spurri ng. There is also narrowing of the medial patellofemoral joint which shows mild periarticular spurri ng.. No joint effusion is seen. SOFT TISSUE: Mild vascular calcifications. IMPRESSION: Moderate degenerative changes of the patellofemoral joint and medial femoral tibial joint. DATA REPOSITORY: RADIATION DOSE DELIVERED:
== END 2025-03-31 11:18 | disposition home or self-care (01) ==
LOC: DIORS 11:17
PROVIDERS: PCP Nurse Practitioner; Referring Provider Nurse Practitioner; Visit Provider Physician Assistant
DX: M17.12 Unilateral primary osteoarthritis, left knee
CPT/HCPCS: 20610; J1010; 73564